=== PATIENT | female | born 1935 | race Caucasian/White ===

== ENCOUNTER → 2016-09-09 | Outpatient (CLI) | payer OTHER ==
[~2016-09-09] MED LIST: ALPR-411 PO; CLR10 PO; FLUT0.15 NAE; HYDR12.56 PO; METO25TA56 PO; MULT-506 PO; OMEP40CA PO; VITA400C28 PO
[2016-09-09 13:40] LABS: ESTIMATED AVERAGE GLUCOSE 117 mg/dl; HA1C FLAG Normal (Normal)
== END | disposition home or self-care (01) ==
LOC: C.LABBFT 08:21
PROVIDERS: ATTEND Internal Medicine
DX: R73.01 Impaired fasting glucose (principal)

== ENCOUNTER → 2017-03-16 | Outpatient (CLI) | payer OTHER ==
[2017-03-16 12:15] LABS: BASO % 0.7 %; BASO ABS # 0.04 K/uL (0-0.2); COMPLETE YES; EOS % 2.7 %; HEMATOCRIT 41.7 % (37-47); IG% 0.2 %; LYMPH % 43.1 %; LYMPH ABS # 2.42 K/uL (1.2-3.4); MEAN CELL VOLUME 96.3 fL (80-100); MEAN CORPUSCULAR HEMOGLOBIN 30.9 pg (25-34); MEAN CORPUSCULAR HGB CONC 32.1 g/dl (32-36); MEAN PLATELET VOLUME 11.6 fL (7.4-10.4); MONO % 7.3 %; PLATELET COUNT 207 K/uL (130-400); RED BLOOD COUNT 4.33 M/uL (4.2-5.4); WHITE BLOOD COUNT 5.61 K/uL (4.8-10.8)
[2017-03-16 12:32] LABS: ESTIMATED AVERAGE GLUCOSE 117 mg/dl; HA1C FLAG Normal (Normal)
[2017-03-16 12:38] LABS: ALT/SGPT 28 U/L (12-78); AST/SGOT 30 U/L (15-37); BLOOD UREA NITROGEN 17 mg/dl (7-18); BUN/CREATININE RATIO 15.4 (10-20); CALCIUM 9.4 mg/dl (8.5-10.1); CARBON DIOXIDE 30 mmol/L (21-32); CHLORIDE 105 mmol/L (98-107); CREATININE 1.12 mg/dl (0.60-1.20); GLUCOSE 106 mg/dl (70-99); POTASSIUM 3.8 mmol/L (3.5-5.1); SODIUM 140 mmol/L (136-145)
[2017-03-16 12:49] LABS: ALB/GLOB RATIO 1.2 (0.9-2); ALKALINE PHOSPHATASE 59 U/L (45-117)
== END | disposition home or self-care (01) ==
LOC: C.LABBFT 08:18
PROVIDERS: ATTEND Internal Medicine
DX: R73.01 Impaired fasting glucose (principal); E78.5 Hyperlipidemia, unspecified

== ENCOUNTER → 2017-03-21 | Outpatient (CLI) | payer OTHER ==
[2017-03-21 17:54] LABS: URINE APPEARANCE CLEAR (CLEAR); URINE COLOR DK YELLOW; URINE NITRITE NEG (NEG); URINE SPECIFIC GRAVITY 1.021 (1.000-1.030); UROBILINOGEN NEG (NEG); ZZUR CULT IF INDIC CLEAN CATCH NO
[2017-03-21 17:59] LABS: MANUAL MICROSCOPIC REQUIRED? NO; REVIEW REQ? NO; URINE BILIRUBIN NEG (NEG)
== END | disposition home or self-care (01) ==
LOC: C.LABSPEC 13:36
PROVIDERS: ATTEND Internal Medicine
DX: N28.9 Disorder of kidney and ureter, unspecified (principal)

== ENCOUNTER 2021-02-11 19:33 | Inpatient (IN) ==
[2021-02-11 20:32] LABS: Basophils # (auto) 0.02 K/uL (0-0.2); Basophils % (auto) 0.3 %; Eosinophils % (auto) 1.7 %; Hemoglobin 11.7 g/dL (12.0-16.0); Immature Granulocytes # (auto) 0.01 K/uL (0.00-0.02); Immature Granulocytes % (auto) 0.2 %; Lymphocytes # (auto) 2.03 K/uL (1.2-3.4); Lymphocytes % (auto) 35.3 %; Mean Corpuscular Hemoglobin 30.4 pg (25-34); Mean Corpuscular Hgb Conc 32.5 g/dL (32-36); Mean Corpuscular Volume 93.5 fL (80-100); Mean Platelet Volume 12.1 fL (7.4-10.4); Monocytes # (auto) 0.38 K/uL (0.11-0.59); Monocytes % (auto) 6.6 %; Neutrophils # (auto) 3.21 K/uL (1.4-6.5); Neutrophils % (auto) 55.9 %; Platelet Count 191 K/uL (130-400); RDW Coefficient of Variation 14.7 % (11.5-14.5); RDW Standard Deviation 49.8 fL (36.4-46.3); Red Blood Count 3.85 M/uL (4.2-5.4); White Blood Count 5.75 K/uL (4.8-10.8)
--- NOTE | 2021-02-11 20:32 | Emergency Department Note ---
Impression & Plan Acute non-ST elevation myocardial infarction (NSTEMI), Acute epigastric pain ED Provider Note Name: KONSTANTIN GRADY Age: 86 Sex: F Arrives Via: Walk-In Informant: Patient, Daughter ED Provider: Sea Walter MD Chief Complaint: epigastric pain Impression: As Per Impression Above Medical Decision Makin yr old female with acute epigastric pain radiating to back over the last week with some left sided chest pain. Severe enough that decided to come to ED for evaluation and pain resolving on arrival. Initial EKG quite concerning for ACS, though as pain free, repeat EKG looking improved, will hold on calling Heart Alert at this time. Vitals OK and she is stable without pain. Abdominal exam benign and breathing comfortably. Good pulses in legs and symptoms do not seem consistent with dissection. Labs with elevated troponin. CT non-Cont of a/p obtained without acute findings, and I do not feel that this is consistent with acute cholecystitis at this point. CXR looking OK. She has no history GI Bleed, denies blood in stool (chronically dark as on Iron per patient), has stable hgb and is not tachy/hypotensive. I do not feel that this EKG change and elevated Troponin are due to GI Bleed, but much more likely are cardiac in nature. After discussing the risks of causing GI bleed with Heparin amongst other bleeding, as well as benefits of Heparin, patient willing to proceed with heparin bolus/infusion. This along with asa and Protonix ordered after review with hospitalist who also agrees. Covid is negative. Patient evaluated and hospitalized. Prior Medical Record and Triage/Nursing Notes reviewed by Me Additional history obtained from chart Differentials:Cardiac ischemia, aortic dissection, pulmonary embolism, pneumothorax, pneumonia, pericarditis, myocarditis, esophageal rupture, GERD, cholecystitis, pancreatitis, musculoskeletal, as well as other pathologies. Vital Signs: reviewed and remarkable for no significant abnormalities Interventions: Saline lock, asa 324mg po, heparin gtt, protonix bolus Labs:Reviewed and remarkable for elevated troponin Imaging:X ray results are stated below per my interpretation: Chest: 1 view: No infiltrate, no effusion, normal cardiac border. [facility] Radiologist interpretation reviewed by me: "CT ABDOMEN & PELVIS Without Contrast: Cholelithiasis. Complex, partly calcified left renal cyst. Large probably mildly septated left renal cyst. Colonic diverticula without diverticulitis. Nonobstructive bowel gas pattern. Visualized segments of the appendix are unremarkable Small hiatal hernia. Cardiomegaly. Radiologist: Kishor Vaughn M.D." EKG #1:Per My Interpretation: Indication Epigastric Pain: NSR 84 bpm, qtc 425. Deep lateral Inferior ST Depression with mild AVR ST elevation. No Ectopy.Compared to EKG 06/04/19 ischemic findings are new. EKG 2: Per My Interpretation: Indication Improvement in Epigastric Pain: NSR 81 bpm, qtc 406. No Ectopy.Resolution of deep lateral ST depressions, continued ST abnormalities elsewher. Compared to EKG earlier on 02/11/21 ischemic changes have somewhat improved. Cardiac/Tele Monitoring: Cardiac Monitoring: An Order was placed for continuous cardiac monitoring. The monitor shows a rate of 70 with a normal sinus rhythm. Consults:Dr Dane FUENTES Hospitalist Plan: Disposition:Hospitalization. Condition: Good History of Present Illness:86 yr old female arrives for evaluation of epigastric pain. Patient with waxing/waning epigastric pain over the last 10 days. Worse with exertion and sometimes with laying down. Similar to previous hiatal hernia issues though this time pain is periodically in the left upper chest. No radiation to shoulders, neck. States epigastric pain sometimes radiates to mid back. Associated with nausea. No improvement with BID Omeprazo le the last few days. Sometimes better with Sprite. Rest seems to make it better. Has history of stomach ulcer and is on iron for anemia. Denies bloody stool and states stool chronically dark from Fe supplement. Denies leg swelling, syncope, vomiting, headache, neck pain, rashes, urinary/bowel symptoms. No recent trauma injuries. Is on ASA 81 mg daily. Denies CAD, has history HTN, DLP, GERD, Hiatal Hernia, SVT, pre DMII, Anxiety, Arthritis. ROS: See above HPI for pertinent positives & negatives. A total of 10 systems reviewed and were otherwise negative. Past Medical History:HTN, DLP, GERD, Hiatal Hernia, SVT, pre DMII, Anxiety, Arthritis. Past Surgical History:left inguinal hernia repair Family History:See Below Social History:See Below Home Medications:See Below Allergies:See Below Vitals:Blood Pressure: 135/81, Pulse 90, RR 19, T 36.9C, O2 97% on RA Physical Exam: GENERAL: Patient is anxious appearing and in minimal distress. EYES: No scleral icterus, unremarkable pupils. ENT: Mucous membranes moist, no nasal congestion. NECK: No masses appreciated, nomeningismus, trachea is midline. RESPIRATORY: No dyspnea. Clear to auscultation and equal bilaterally. No wheeze, no rhonchi. CARDIOVASCULAR: Regular rate and rhythm.No murmurs, rubs, gallops appreciated. GASTROINTESTINAL: Epigastric TTP. Otherwise abdomen soft, non-tender, no peritonitis.Bowel sounds positive.No masses appreciated. BACK: No midline tenderness, no CVA tenderness EXTREMITIES: Normal motion all extremities, no cyanosis, no edema. NEUROLOGIC: Alert and oriented, no acute motor or sensory deficits, no focal weakness, cranial nerves grossly intact. SKIN: No rash, no jaundice, no diaphoresis. PSYCH: Appropriate GCS: 15 ED Course: Times/Reassessments: Stable, no further chest pain, breathing comfortably, soft abdomen and no distress Critical Care: I have personally spent 50 minutes of critical care time in the direct management of this patient. Acute NSTEMI with active EKG changes, started on Heparin and hospitalized. This was a life/limb threatening event. This 50 minutes is in excess of all separately billable procedures. Sea Walter MD Past Med/Surg History Medical History Anxiety Arthritis Gastroesophageal reflux disease Hiatal hernia Hyperlipidemia Hypertension Prediabetes Per records Supraventricular tachycardia Metoprolol bid. follows with Dr. Downey (PCP) Surgical History History of cataract surgery History of D&C Family History Brother Diabetes Heart disease Cardiac disorder Father Liver cancer Sister Cardiac disorder Denies family history of Ovarian cancer Prostate cancer Myocardial infarction Breast cancer Colorectal cancer Social History Smoking Status: Never smoker Second Hand Exposure: Yes (hx as a child); Hx Alcohol Use: No Hx Substance Use: No Preferred Language: Thai Communication Ability: Effective Visual Impairment: No Limitations Hearing Ability: Normal Janitorial Cleaner Required: No Beliefs That Will Affect Care: None marital status: / marital status details: Lives alone Current Living Situation: Alone current occupational status: retired Feels Safe at Home: Yes Childhood Exposure to Second-Hand Smoke: Yes caffeine: Yes during the past year weight has: remained stable Dental Care, Regularly: Yes Physical Activity Frequency: Does not Exercise Seatbelt Use: always Sunscreen Use: No Assistive Devices: Glasses Allergies Allergies Allergy/AdvReac Type Severity Reaction Status Date / Time Iodinated Contrast Media Allergy Intermediate HIVES Verified 02/11/21 21:34 atorvastatin [From Lipitor] AdvReac Intermediate myalgia Verified 02/11/21 21:34 levofloxacin [From Levaquin] AdvReac Intermediate Anxiety Verified 02/11/21 21:34 pravastatin AdvReac Intermediate myalgia Verified 02/11/21 21:34 prednisone AdvReac hyperactivi Verified 02/11/21 21:34 ty Home Meds Home Medications Medication Instructions Recorded Confirmed multivitamin (Daily Multi-Vitamin) 1 tab PO QAM 05/13/19 02/11/21 loratadine 10 mg tablet (Claritin) 10 mg PO DAILY 05/25/19 02/11/21 aspirin 81 mg chewable tablet 81 mg PO QAM 06/04/19 02/11/21 ferrous sulfate 325 mg (65 mg 325 mg PO BID 07/23/20 02/11/21 iron) tablet fluticasone propionate 50 2 spray INTNAS DAILY 02/11/21 02/11/21 mcg/actuation nasal spray,suspension omeprazole 20 mg capsule,delayed 20 mg PO BID 02/11/21 02/11/21 release vit C 250 mg-vit E 90 mg-zinc 40 1 tab PO BID 02/11/21 02/11/21 mg-copper 1 [id number] capsule (PreserVision AREDS-2) vitamin B complex 1 tab PO DAILY 02/11/21 02/11/21 Previous Rx's Medication Instructions Recorded metoprolol tartrate 25 mg tablet 25 mg PO BID #60 tab 08/07/20 alprazolam 0.25 mg tablet 0.25 mg PO DAILY PRN #30 tab 01/13/21 Results & Data (ED) Vital Signs Vital Signs - 24 hr 02/11/21 19:35 02/11/21 20:44 02/11/21 20:45 Temperature 36.9 C Temperature Source Temporal Artery Scan Pulse Rate 90 78 77 Pulse Rate [Apical] 80 Pulse Rate from SpO2 Sensor 78 77 Respiratory Rate 19 24 16 Respiratory Effort / Characteristics Non-Labored Respiratory Depth Normal Normal Blood Pressure 135/81 Blood Pressure [Left Arm] 169/95 H Blood Pressure Mean 99 Blood Pressure Mean [Left Arm] 119 Pulse Oximetry 97 95 94 Oxygen Delivery Method Room Air Sepsis Recent Fever Within 48 Hours No Sepsis New/Unexplained Change in Mental Status N/A Sepsis Action Taken by Nursing No Action Required 02/11/21 21:00 02/11/21 21:15 02/11/21 21:30 Temperature Temperature Source Pulse Rate 84 79 82 Pulse Rate [Apical] Pulse Rate from SpO2 Sensor 84 80 83 Respiratory Rate 18 16 15 Respiratory Effort / Characteristics Respiratory Depth Blood Pressure Blood Pressure [Left Arm] Blood Pressure Mean Blood Pressure Mean [Left Arm] Pulse Oximetry 96 97 96 Oxygen Delivery Method Sepsis Recent Fever Within 48 Hours Sepsis New/Unexplained Change in Mental Status Sepsis Action Taken by Nursing 02/11/21 21:45 02/11/21 22:00 02/12/21 00:00 Temperature Temperature Source Pulse Rate 75 75 Pulse Rate [Apical] 68 Pulse Rate from SpO2 Sensor 75 75 Respiratory Rate 15 17 18 Respiratory Effort / Characteristics Respiratory Depth Blood Pressure 135/70 Blood Pressure [Left Arm] Blood Pressure Mean 91 Blood Pressure Mean [Left Arm] Pulse Oximetry 95 95 95 Oxygen Delivery Method Sepsis Recent Fever Within 48 Hours Sepsis New/Unexplained Change in Mental Status Sepsis Action Taken by Nursing Laboratory Data Result diagrams: 02/11/21 19:40 02/11/21 19:40 Lab Results 02/11/21 02/11/21 02/11/21 Range/Units 19:40 19:40 19:40 WBC 5.75 (4.8-10.8) K/uL RBC 3.85 L (4.2-5.4) M/uL Hgb 11.7 L (12.0-16.0) g/dL Hct 36.0 L (37-47) % MCV 93.5 (80-100) fL MCH 30.4 (25-34) pg MCHC 32.5 (32-36) g/dL RDW Std Deviation 49.8 H (36.4-46.3) fL RDW Coeff of Chris 14.7 H (11.5-14.5) % Plt Count 191 (130-400) K/uL MPV 12.1 H (7.4-10.4) fL Immature Gran % (Auto) 0.2 % Neut % (Auto) 55.9 % Lymph % (Auto) 35.3 % [place] % (Auto) 6.6 % Eos % (Auto) 1.7 % Baso % (Auto) 0.3 % Neut # (Auto) 3.21 (1.4-6.5) K/uL Lymph # (Auto) 2.03 (1.2-3.4) K/uL [place] # (Auto) 0.38 (0.11-0.59) K/uL Eos # (Auto) 0.10 (0-0.5) K/uL Baso # (Auto) 0.02 (0-0.2) K/uL Immature Gran # (Auto) 0.01 (0.00-0.02) K/uL PT 9.8 (9.0-12.0) Seconds INR 1.0 (0.9-1.1) APTT 24.8 (21.0-31.0) Seconds PTT Ratio 0.9 Sodium 136 (136-145) mmol/L Potassium 4.2 (3.5-5.1) mmol/L Chloride 105 (98-107) mmol/L Carbon Dioxide 25 (21-32) mmol/L Anion Gap 6.0 (3-11) BUN 14 (7-18) mg/dl Creatinine 1.08 (0.6-1.2) mg/dl Est Cr Clr Drug Dosing 27.9 ml/min Est GFR ( Amer) 53.5 ml/min Est GFR (Non-Af Amer) 46.1 ml/min BUN/Creatinine Ratio 13.1 (10-20) Glucose 120 H (70-99) mg/dl Calcium 9.5 (8.5-10.1) mg/dl Total Bilirubin 0.5 (0.2-1) mg/dl AST 32 (15-37) U/L ALT 26 (12-78) U/L Alkaline Phosphatase 63 (45-117) U/L Troponin I 0.891 H* (0-0.045) ng/ml Total Protein 7.9 (6.4-8.2) gm/dl Albumin 3.8 (3.4-5.0) gm/dl Globulin 4.1 H (2.5-4.0) gm/dl Albumin/Globulin Ratio 0.9 (0.9-2) Lipase 280 (73-393) U/L Specimen Hemolysis COVID-19 Eval Order SARS-CoV-2 (PCR) (Negative) 02/11/21 02/11/21 Range/Units Unknown Unknown WBC (4.8-10.8) K/uL RBC (4.2-5.4) M/uL Hgb (12.0-16.0) g/dL Hct (37-47) % MCV (80-100) fL MCH (25-34) pg MCHC (32-36) g/dL RDW Std Deviation (36.4-46.3) fL RDW Coeff of Chris (11.5-14.5) % Plt Count (130-400) K/uL MPV (7.4-10.4) fL Immature Gran % (Auto) % Neut % (Auto) % Lymph % (Auto) % [place] % (Auto) % Eos % (Auto) % Baso % (Auto) % Neut # (Auto) (1.4-6.5) K/uL Lymph # (Auto) (1.2-3.4) K/uL [place] # (Auto) (0.11-0.59) K/uL Eos # (Auto) (0-0.5) K/uL Baso # (Auto) (0-0.2) K/uL Immature Gran # (Auto) (0.00-0.02) K/uL PT (9.0-12.0) Seconds INR (0.9-1.1) APTT (21.0-31.0) Seconds PTT Ratio Sodium (136-145) mmol/L Potassium (3.5-5.1) mmol/L Chloride (98-107) mmol/L Carbon Dioxide (21-32) mmol/L Anion Gap (3-11) BUN (7-18) mg/dl Creatinine (0.6-1.2) mg/dl Est Cr Clr Drug Dosing ml/min Est GFR ( Amer) ml/min Est GFR (Non-Af Amer) ml/min BUN/Creatinine Ratio (10-20) Glucose (70-99) mg/dl Calcium (8.5-10.1) mg/dl Total Bilirubin (0.2-1) mg/dl AST (15-37) U/L ALT (12-78) U/L Alkaline Phosphatase (45-117) U/L Troponin I (0-0.045) ng/ml Total Protein (6.4-8.2) gm/dl Albumin (3.4-5.0) gm/dl Globulin (2.5-4.0) gm/dl Albumin/Globulin Ratio (0.9-2) Lipase (73-393) U/L Specimen Hemolysis COVID-19 Eval Order Covid19 at [facility] SARS-CoV-2 (PCR) NEGATIVE (Negative) Administered Medications Heparin Sodium/Dextrose (Heparin Sodium/Dextrose) 25,000 units in 500 mls @ 12 mls/hr IV .Q24H FRANDY; Protocol Stop: 03/13/21 23:14 Last Admin: 02/11/21 23:32 Dose: 600 units/hr, 12 mls/hr Documented by: [id number] Cosigned by: [id number] Nitroglycerin (Nitroglycerin 2% Ointment 30gm Tube) 1 inch EXT Q6 FRANDY Stop: 03/14/21 00:00 Last Admin: 02/12/21 01:34 Dose: 1 inch Documented by: [id number] Discontinued Medications Aspirin (Aspirin 81 Mg Chew) 324 mg PO NOW STA Stop: 02/11/21 22:54 Last Admin: 02/11/21 23:51 Dose: 324 mg Documented by: [id number] Heparin Sodium/Dextrose (Heparin Iv Adult Wt-Based Low-Dose With Bolus Protocol) 1 ea N/A NOW STA; Protocol Stop: 02/11/21 22:54 Last Admin: 02/11/21 23:28 Dose: 1 ea Documented by: [id number] Pantoprazole Sodium 80 mg/ (Dextrose) 100 mls @ 400 mls/hr IV ONE STA Stop: 02/11/21 23:08 Last Infusion: 02/12/21 00:14 Dose: 0 mls/hr Documented by: [id number] Admin: 02/11/21 23:41 Dose: 400 mls/hr Documented by: [id number] Imaging Data Radiologist's Impression: Chest X-Ray 02/11/21 19:40 XR chest 1V portable HISTORY: Atypical Chest Pain COMPARISON: Chest 06/04/2019. FINDINGS: No pneumothorax. No pleural effusions. The cardiac silhouette remains mildly enlarged. Slightly rotated study. Mild interstitial thickening which is likely chronic. No new focal lung consolidations to suggest pneumonia. No evidence for pulmonary edema. Suspect mild emphysema. IMPRESSION: No significant change compared to the prior study. No acute process. ACT 112: Negative or not required by law. Electronically signed by: Nikita Barrera M.D. 02/11/2021 8:33 PM Discharge Plan Visit Data Chief Complaint: GI Assessment Stated Complaint: BURNING IN THROAT, PAIN IN CHEST/RIB AREA ED Provider: Sea Walter Discharge Problem: Acute non-ST elevation myocardial infarction (NSTEMI), Acute epigastric pain Forms Stand Alone Forms: [facility] [employer] Prescriptions Prescriptions: No Action multivitamin [Daily Multi-Vitamin] tablet 1 tab PO QAM RF: 0 ferrous sulfate 325 mg (65 mg iron) tablet 325 mg PO BID RF: 0 metoprolol tartrate 25 mg tablet 25 mg PO BID Qty: 60 RF: 5 Hold Instructions: weak feelings in the morning alprazolam 0.25 mg tablet 0.25 mg PO DAILY PRN (Reason: anxiety) Qty: 30 RF: 0 loratadine [Claritin] 10 mg tablet 10 mg PO DAILY RF: 0 aspirin 81 mg Tablet,Chewable 81 mg PO QAM RF: 0 omeprazole 20 mg capsule,delayed release(DR/EC) 20 mg PO BID RF: 0 fluticasone propionate 50 mcg/actuation spray,suspension 2 spray INTNAS DAILY RF: 0 vitamin B complex Tablet 1 tab PO DAILY RF: 0 PreserVision AREDS-2 250-90-40-1 mg Capsule 1 tab PO BID RF: 0 Referrals Referrals: Carlos Downey MD [Primary Care Provider] -
--- NOTE | 2021-02-11 20:34 | XRay Report ---
XR chest 1V portable HISTORY: Atypical Chest Pain COMPARISON: Chest 06/04/2019. FINDINGS: No pneumothorax. No pleural effusions. The cardiac silhouette remains mildly enlarged. Slig htly rotated study. Mild interstitial thickening which is likely chronic. No new focal lung consolida tions to suggest pneumonia. No evidence for pulmonary edema. Suspect mild emphysema. IMPRESSION: No significant change compared to the prior study. No acute process. ACT 112: Negative or not required by law. Electronically signed by: Nikita Barrera M.D. 02/11/2021 8:33 PM
[2021-02-11 20:50] LABS: Albumin Globulin Ratio 0.9 (0.9-2); Albumin Level 3.8 gm/dl (3.4-5.0); BUN Creatinine Ratio 13.1 (10-20); Bilirubin,Total 0.5 mg/dl (0.2-1); Calcium 9.5 mg/dl (8.5-10.1); Creatinine Clr Calc Pharmacy 27.9 ml/min; Est GFR (African American) 53.5 ml/min; Est GFR (Non-African American) 46.1 ml/min; Globulin 4.1 gm/dl (2.5-4.0); Potassium 4.2 mmol/L (3.5-5.1); Total Protein 7.9 gm/dl (6.4-8.2); Troponin I 0.891 ng/ml (0-0.045)
[2021-02-11 22:00] LABS: Partial Thromboplastin Ratio 0.9; Partial Thromboplastin Time 24.8 Seconds (21.0-31.0); Prothrombin Time 9.8 Seconds (9.0-12.0)
[2021-02-11] MEDS ORDERED: Heparin IV Adult Wt-Based Low-Dose WITH Bolus Protocol STA (22:53)
[2021-02-11] MEDS ORDERED: ASPIRIN 81 MG CHEW PO STA (22:53)
[2021-02-11] MEDS ORDERED: PANTOprazole 80 MG in DEXTROSE 5% 100 ML IV STA (22:54)
[2021-02-11] MEDS ORDERED: HEPARIN SOD (PORCINE) 1000 UNIT/ML IV ONE (23:08)
[2021-02-11] MEDS: HEPARIN SODIUM/DEXTROSE 25,000 UNITS/500 ML BAG IV SCH (23:32)
[2021-02-11] MEDS ORDERED: ONDANSETRON INJ 2 MG/ML 2 ML VIAL IV PRN (23:55)
[2021-02-11] MEDS ORDERED: ACETAMINOPHEN 325 MG TAB PO PRN (23:55)
--- NOTE | 2021-02-11 23:57 | History & Physical Report ---
Date of Service February 11, 2021 Assessment & Plan (1) NSTEMI (non-ST elevated myocardial infarction): (2) Hyperlipidemia: (3) Hypertension: (4) Anxiety: (5) Gastroesophageal reflux disease: (6) Supraventricular tachycardia: (7) Prediabetes: Plan: 86-year-old female past medical history significant for SVT on metoprolol, hypertension, hyperlipidemia, GERD, hiatal hernia, anxiety, prediabetes admitted for NSTEMI. NSTEMI: Presented with epigastric to left chest pain/pressure with associated shortness of breath. Noted to have T wave inversions in inferior lateral leads with elevated initial troponin to 0.891. Patient will be started on heparin gtt, and started on Nitropaste. Telemetry for continuous cardiac monitoring. Echocardiogram in the morning, with Cardiology consult for consideration of catheterization. Continue daily aspirin Continue metoprolol tartrate 25 mg twice daily (was on metoprolol succinate in the past however had breakthrough SVT). Will start low-dose lisinopril 2.5 mg daily. Chronic medical history: Hypertension: Continue metoprolol; will start low-dose lisinopril with daily BMP while admitted. Hyperlipidemia: Has had intolerance (severe myalgias) to multiple fat-soluble and water-soluble statins. Given NSTEMI care should be given to medications such as Repatha. Defer to cardiology. Lipid panel ordered. Prediabetes: Last A1c several months ago in prediabetic range. Repeat A1c ordered. No intervention at this time given last A1c less than 7%. GERD, history of stomach ulcer: Given history of stomach ulcer and GERD will increase PPI to twice daily while admitted. Anxiety: Continue as needed alprazolam. CODE STATUS: DNR/DNI FEN: N.p.o. DVT prophylaxis: Heparin GTT Dispo: Telemetry History of Present Illness Chief Complaint: Epigastric/left chest pain Primary Care Provider: Carlos Downey MD 86-year-old female past medical history significant for SVT on metoprolol, hypertension, hyperlipidemia, GERD, hiatal hernia, anxiety, prediabetes presented to the ER for intermittent epigastric to left chest pain for the last 10 days that worsens with exertion. She does not report associated nausea or vomiting, diaphoresis with these events, but does endorse some breathlessness during them. In general she denies recent fevers, chills, urinary symptoms. She reports that in this 10-day time she would have this cramping sensation and shortness of breath at the end of her 100 foot walk from her front door to her mailbox. It would take her several minutes of resting before the symptoms would improve. At first she thought that the symptoms were a worsening of her GERD symptoms and so she increased her omeprazole to twice daily for the last 3 days. When this did not help she came to the ER for evaluation. In the ER patient was noted to be hypertensive to 160s/90s, otherwise hemodynamically stable. CBC revealed anemia with hemoglobin 11.7 with normo cytic MCV, normal CMP, troponin 0.891. EKG notable for T wave depressions in inferior and lateral leads as compared to EKG in May 2019. COVID-19 testing negative. Chest x-ray without acute process. CTAP with cholelithiasis and small hiatal hernia. Allergies Allergy/AdvReac Type Severity Reaction Status Date / Time Iodinated Contrast Media Allergy Intermediate HIVES Verified 02/11/21 21:34 atorvastatin [From Lipitor] AdvReac Intermediate myalgia Verified 02/11/21 21:34 levofloxacin [From Levaquin] AdvReac Intermediate Anxiety Verified 02/11/21 21:34 pravastatin AdvReac Intermediate myalgia Verified 02/11/21 21:34 prednisone AdvReac hyperactivi Verified 02/11/21 21:34 ty Home Medications Medication Instructions Recorded Confirmed Type multivitamin (Daily Multi-Vitamin) 1 tab PO QAM 05/13/19 02/11/21 History loratadine 10 mg tablet (Claritin) 10 mg PO DAILY 05/25/19 02/11/21 History aspirin 81 mg chewable tablet 81 mg PO QAM 06/04/19 02/11/21 History ferrous sulfate 325 mg (65 mg 325 mg PO BID 07/23/20 02/11/21 History iron) tablet metoprolol tartrate 25 mg tablet 25 mg PO BID #60 tab 08/07/20 02/11/21 Rx alprazolam 0.25 mg tablet 0.25 mg PO DAILY PRN #30 tab 01/13/21 02/11/21 Rx fluticasone propionate 50 2 spray INTNAS DAILY 02/11/21 02/11/21 History mcg/actuation nasal spray,suspension omeprazole 20 mg capsule,delayed 20 mg PO BID 02/11/21 02/11/21 History release vit C 250 mg-vit E 90 mg-zinc 40 1 tab PO BID 02/11/21 02/11/21 History mg-copper 1 [id number] capsule (PreserVision AREDS-2) vitamin B complex 1 tab PO DAILY 02/11/21 02/11/21 History Past Med/Surg History Medical History Anxiety Arthritis Gastroesophageal reflux disease Hiatal hernia Hyperlipidemia Hypertension Prediabetes Per records Supraventricular tachycardia Metoprolol bid. follows with Dr. Downey (PCP) Surgical History History of cataract surgery History of D&C Family History Brother Diabetes Heart disease Cardiac disorder Father Liver cancer Sister Cardiac disorder Denies family history of Ovarian cancer Prostate cancer Myocardial infarction Breast cancer Colorectal cancer Social History Smoking Status: Never smoker Second Hand Exposure: Yes (hx as a child); Hx Alcohol Use: No Hx Substance Use: No Preferred Language: Slovenian Communication Ability: Effective Visual Impairment: No Limitations Hearing Ability: Normal Rock Drill Operator Required: No Beliefs That Will Affect Care: None marital status: / marital status details: Lives alone Current Living Situation: Alone current occupational status: retired Other Information That Helps Us Care for You: No Feels Safe at Home: Yes Safety Concerns: Feels Safe At This Time Childhood Exposure to Second-Hand Smoke: Yes caffeine: Yes during the past year weight has: remained stable Dental Care, Regularly: Yes Physical Activity Frequency: Does not Exercise Seatbelt Use: always Sunscreen Use: No Assistive Devices: Denture - Upper, Denture - Lower and Glasses Review of Systems Review of Systems: All systems reviewed & are unremarkable except as noted in HPI & below Constitutional: + malaise; no fever and no chills Respiratory: no cough and no dyspnea Cardiovascular: + chest pain; no palpitations and no edema Gastrointestinal: no abdominal pain, no constipation and no diarrhea/loose stools Genitourinary: no dysuria and no hematuria Physical Exam Constitutional: WD/WN, vitals as above Eyes: PERRL, conjunctivae normal, anicteric sclerae ENMT: external ear and nose normal, oropharynx normal Neck: normal visual inspection Respiratory: normal respiratory effort, lungs clear to auscultation Cardiovascular: RRR, no murmur, no edema Gastrointestinal (Abdomen): Inspection/Auscultation: abdomen normal to inspection and normal bowel sounds Percussion/Palpation: + abdomen tender and abdomen soft (mild epigastric); no guarding Musculoskeletal: no cyanosis or clubbing, extremities motor strength 5/5 Skin: no rashes, warm and dry Neurologic: AAOx3, normal speech. Bilateral UE, LE, and face without sensory or motor deficits. Psychiatric: A+Ox3, euthymic affect Results & Data Results & Data ([facility]) Vital Signs (Past 12 Hours) Vital Signs Temp Pulse Pulse Resp BP BP Pulse Ox 02/11/21 22:00 68 17 95 02/11/21 20:44 80 22 169/95 H 95 02/11/21 19:35 36.9 C 90 19 135/81 97 Laboratory Results Laboratory Results WBC 5.75 K/uL (4.8-10.8) 02/11/21 19:40 RBC 3.85 M/uL (4.2-5.4) L 02/11/21 19:40 Hgb 11.7 g/dL (12.0-16.0) L 02/11/21 19:40 Hct 36.0 % (37-47) L 02/11/21 19:40 MCV 93.5 fL (80-100) 02/11/21 19:40 MCH 30.4 pg (25-34) 02/11/21 19:40 MCHC 32.5 g/dL (32-36) 02/11/21 19:40 RDW Std Deviation 49.8 fL (36.4-46.3) H 02/11/21 19:40 RDW Coeff of Chris 14.7 % (11.5-14.5) H 02/11/21 19:40 Plt Count 191 K/uL (130-400) 02/11/21 19:40 MPV 12.1 fL (7.4-10.4) H 02/11/21 19:40 Immature Gran % (Auto) 0.2 % 02/11/21 19:40 Neut % (Auto) 55.9 % 02/11/21 19:40 Lymph % (Auto) 35.3 % 02/11/21 19:40 Toombs % (Auto) 6.6 % 02/11/21 19:40 Eos % (Auto) 1.7 % 02/11/21 19:40 Baso % (Auto) 0.3 % 02/11/21 19:40 Neut # (Auto) 3.21 K/uL (1.4-6.5) 02/11/21 19:40 Lymph # (Auto) 2.03 K/uL (1.2-3.4) 02/11/21 19:40 Toombs # (Auto) 0.38 K/uL (0.11-0.59) 02/11/21 19:40 Eos # (Auto) 0.10 K/uL (0-0.5) 02/11/21 19:40 Baso # (Auto) 0.02 K/uL (0-0.2) 02/11/21 19:40 Immature Gran # (Auto) 0.01 K/uL (0.00-0.02) 02/11/21 19:40 PT 9.8 Seconds (9.0-12.0) 02/11/21 19:40 INR 1.0 (0.9-1.1) 02/11/21 19:40 APTT 24.8 Seconds (21.0-31.0) 02/11/21 19:40 PTT Ratio 0.9 02/11/21 19:40 Sodium 136 mmol/L (136-145) 02/11/21 19:40 Potassium 4.2 mmol/L (3.5-5.1) 02/11/21 19:40 Chloride 105 mmol/L (98-107) 02/11/21 19:40 Carbon Dioxide 25 mmol/L (21-32) 02/11/21 19:40 Anion Gap 6.0 (3-11) 02/11/21 19:40 BUN 14 mg/dl (7-18) 02/11/21 19:40 Creatinine 1.08 mg/dl (0.6-1.2) 02/11/21 19:40 Est Cr Clr Drug Dosing 27.9 ml/min 02/11/21 19:40 Est GFR ( Amer) 53.5 ml/min 02/11/21 19:40 Est GFR (Non-Af Amer) 46.1 ml/min 02/11/21 19:40 BUN/Creatinine Ratio 13.1 (10-20) 02/11/21 19:40 Glucose 120 mg/dl (70-99) H 02/11/21 19:40 Calcium 9.5 mg/dl (8.5-10.1) 02/11/21 19:40 Total Bilirubin 0.5 mg/dl (0.2-1) 02/11/21 19:40 AST 32 U/L (15-37) 02/11/21 19:40 ALT 26 U/L (12-78) 02/11/21 19:40 Alkaline Phosphatase 63 U/L (45-117) 02/11/21 19:40 Troponin I 0.891 ng/ml (0-0.045) H* 02/11/21 19:40 Total Protein 7.9 gm/dl (6.4-8.2) 02/11/21 19:40 Albumin 3.8 gm/dl (3.4-5.0) 02/11/21 19:40 Globulin 4.1 gm/dl (2.5-4.0) H 02/11/21 19:40 Albumin/Globulin Ratio 0.9 (0.9-2) 02/11/21 19:40 Lipase 280 U/L (73-393) 02/11/21 19:40 Specimen Hemolysis 02/11/21 19:40 COVID-19 Eval Order Covid19 at [facility] 02/11/21 Unknown SARS-CoV-2 (PCR) NEGATIVE (Negative) 02/11/21 Unknown Impressions Chest X-Ray 02/11/21 19:40 XR chest 1V portable HISTORY: Atypical Chest Pain COMPARISON: Chest 06/04/2019. FINDINGS: No pneumothorax. No pleural effusions. The cardiac silhouette remains mildly enlarged. Slightly rotated study. Mild interstitial thickening which is likely chronic. No new focal lung consolidations to suggest pneumonia. No evidence for pulmonary edema. Suspect mild emphysema. IMPRESSION: No significant change compared to the prior study. No acute process. ACT 112: Negative or not required by law. Electronically signed by: Nikita Barrera M.D. 02/11/2021 8:33 PM Code Status & VTE Plan VTE Prophylaxis Plan VTE Prophylaxis will be ordered: Yes Supervising Physician Co-Signing Physician Notes Patient seen and examined, chart reviewed, case discussed with Dr. Louis and I agree with her assessment and plan as documented above. In brief, patient is an 86yo female with history of HTN, HLP and GERD, Pre-DM presenting with worsening left sided chest discomfort, SOB. Patient reports ongoing anginal symptoms over the last several weeks - relieved with rest. Has been increasing in severity and duration. She experienced left sided chest pain this evening. Thought pain was from her breast. Troponin elevated at 0.891. Initial EKG while having chest pain with ST depressions in inferior/lateral leads. EKG improved with resolution of chest pain - still with lateral ST changes. Unremarkable exam. Afebrile, HD stable Skin - warm, dry, intact, no rashes/lesions HEENT - NC/AT, PERRL, MMM, Neck supple Heart - +S1/S2, regular, no m/r/g, No reproducible chest pain Lungs - CTA Abdomen - soft, NT/ND Ext - Warm, well perfused, no clubbing/cyanosis or edema Labs and images reviewed Assessment/Plan 86yo female with history of HTN, HLP Pre-DM presenting with NSTEMI - troponin of 0.891 with associated EKG changes. Patient describes appx 10 days of worsening anginal symptoms. Presently chest pain free. HD stable -Heparin gtt -Trend troponin -Check 2D echo -Continue ASA. Patient is statin-intolerant (Last lipid panel 07/21/20 with Porn=608, LDL of 130, HDL of 71 and TG of 115) -BB, CECI-inhibitor -Continue Protonix 40mg BID while on heparin - patient with history of GERD, anemia on iron supplements -Cardiology consultation in AM - possible cardiac catheterization which was briefly discussed with patient -Remainder of plan as above Resident Activity Tracking Resident Involvement: Resident Care Provided Care Provided: Adult Hospital Medicine (1) Hypertension Hypertension type: essential hypertension Qualified Code(s): I10 - Essential (primary) hypertension
[2021-02-12] MEDS: NITROGLYCERIN 2% OINTMENT 30GM TUBE EXT SCH ×4 (01:34→18:35)
--- NOTE | 2021-02-12 02:53 | Billing Data ---
Date of Service February 11, 2021 Coding Level of Care Code 64239 Initial Inpt Care Lvl 3
[2021-02-12] MEDS ORDERED: ALPRAZolam 0.25 MG TABLET PO PRN (03:21)
[2021-02-12] MEDS ORDERED: POLYETHYLENE (MIRALAX) 17 GM PACK PO PRN (03:21)
[2021-02-12 03:42] LABS: Basophils # (auto) 0.02 K/uL (0-0.2); Basophils % (auto) 0.4 %; Eosinophils # (auto) 0.06 K/uL (0-0.5); Eosinophils % (auto) 1.1 %; Hematocrit (blood only) 32.4 % (37-47); Hemoglobin 10.4 g/dL (12.0-16.0); Immature Granulocytes # (auto) 0.01 K/uL (0.00-0.02); Immature Granulocytes % (auto) 0.2 %; Lymphocytes # (auto) 1.52 K/uL (1.2-3.4); Lymphocytes % (auto) 28.4 %; Mean Corpuscular Hemoglobin 29.9 pg (25-34); Mean Corpuscular Hgb Conc 32.1 g/dL (32-36); Mean Corpuscular Volume 93.1 fL (80-100); Mean Platelet Volume 10.5 fL (7.4-10.4); Monocytes # (auto) 0.39 K/uL (0.11-0.59); Monocytes % (auto) 7.3 %; Neutrophils # (auto) 3.36 K/uL (1.4-6.5); Neutrophils % (auto) 62.6 %; Platelet Count 187 K/uL (130-400); RDW Coefficient of Variation 14.5 % (11.5-14.5); RDW Standard Deviation 49.3 fL (36.4-46.3); Red Blood Count 3.48 M/uL (4.2-5.4); White Blood Count 5.36 K/uL (4.8-10.8)
[2021-02-12 03:58] LABS: BUN Creatinine Ratio 14.1 (10-20); Creatinine Clr Calc Pharmacy 31.7 ml/min; Est GFR (African American) 62.4 ml/min; Est GFR (Non-African American) 53.9 ml/min; Potassium 3.7 mmol/L (3.5-5.1)
[2021-02-12 04:12] LABS: Troponin I 8.95 ng/ml (0-0.045)
[2021-02-12 05:52] LABS: Partial Thromboplastin Ratio 2.2
[2021-02-12 06:23] LABS: Partial Thromboplastin Time 58.5 Seconds (21.0-31.0)
[2021-02-12 07:29] LABS: Estimated Average Glucose 117 mg/dl; Hemoglobin A1C 5.7 % (4.5-5.6)
--- NOTE | 2021-02-12 08:01 | CT Scan Report ---
CT abd pelvis wo con CLINICAL INDICATION: MN ^B3B CTR ^epigastric pain. TECHNIQUE: Helical axial images of the abdomen and pelvis were obtained. Automated dose lowering tech niques and/or adjustment according to patient size were utilized for this exam. This exam was perfor med without intravenous contrast. COMPARISON: Comparison is made to CT abdomen and pelvis 06/01/2019 FINDINGS: Lower chest: Bibasilar atelectasis is seen. Cardiomegaly is partially visualized. Liver: Unremarkable. No focal lesions are seen. Gallbladder and biliary tree: Cholelithiasis is seen without evidence of cholecystitis. No intra- or extrahepatic biliary ductal dilation. Pancreas: Unremarkable, no focal lesions. Spleen: Unremarkable. Adrenals: Unremarkable. Kidneys and ureters: Complex, partially calcified cystic lesion in the left kidney, similar in appear ance to prior exam. Bladder: Unremarkable. Reproductive organs: A calcified fibroid is incidentally noted. Bowel: A hiatal hernia is seen. The appendix is unremarkable. Diverticulosis is seen without evidence of diverticulitis. Lymph nodes Retroperitoneal: Unremarkable. Mesenteric: Unremarkable. Pelvic: Unremarkable. Peritoneum: Normal Vessels: Atherosclerotic calcifications are seen. Abdominal wall: Unremarkable. Bones: Degenerative changes in the visualized spine. There is grade 1 anterolisthesis of L2 on L3 and L3-L4. IMPRESSION: 1. No acute abnormality. 2. Cholelithiasis is again seen without evidence of cholecystitis. 3. Complex, partially calcified left renal cyst, unchanged from prior exam. 4. Additional findings as above. ACT 112: Negative or not required by law. Electronically signed by: Norman Mauro M.D. 02/12/2021 8:00 AM
[2021-02-12] MEDS: METOPROLOL TARTRATE 25 MG TAB PO SCH ×2 (09:02→22:06)
[2021-02-12] MEDS: PANTOprazole 40 MG TAB PO SCH ×2 (09:02→22:06)
[2021-02-12] MEDS: LORATADINE 10 MG TAB PO SCH (09:02)
[2021-02-12] MEDS: lisinopril 2.5 MG TAB PO SCH (09:02)
[2021-02-12] MEDS: ASPIRIN 81 MG ECTAB PO SCH (09:02)
[2021-02-12] MEDS: MULTIVITAMIN TAB PO SCH (09:02)
[2021-02-12] MEDS: FLUTICASONE PROPIONATE NA SPR 16 GM BTL SCH (09:03)
[2021-02-12] MEDS: FERROUS SULFATE 325 MG TAB PO SCH ×2 (09:03→20:39)
--- NOTE | 2021-02-12 12:37 | Hospitalist Progress Note ---
Date of Service February 12, 2021 Assessment & Plan (1) NSTEMI (non-ST elevated myocardial infarction): Plan: April Montes is an 86yo female with PMHx significant for SVT (on metoprolol), hypertension, hyperlipidemia, GERD, hiatal hernia, anxiety, prediabetes (A1c 5.7 on 02/12/2021) admitted for NSTEMI; found to have multi- vessel disease on cardiac catheterization and requires transfer for CABG. NSTEMI Typical ACS symptoms. EKG with inferolateral ST depressions and T-wave inversions, Troponin peaked at 15.4. Multi-vessel disease per cardiac catheterization that requires CABG. - TTE with EF 55-60%, mild apical posterior hypokinesis, and moderate MR - received high-dose Aspirin and nitro x1 in the ED, no chest pain currently - Cardiology on board - appreciate recs - patient is in process of making decision about transfer for CABG; will await her consent for transfer - continue Heparin drip, daily Aspirin 81mg, Lopressor 25mg PO BID, Lisinopril 2.5mg PO QAM - statins contraindicated in this patient; had severe myalgias with multiple fat-soluble/water-soluble statins - EKG and nitro PRN for chest pain Chronic medical history Hypertension: Continue metoprolol; continue low-dose lisinopril Hyperlipidemia: Has had intolerance (severe myalgias) to multiple fat-soluble and water-soluble statins. Given NSTEMI care should be given to medications such as Repatha. Defer to cardiology. Prediabetes: A1c 5.7 during this hospitalization. No intervention at this time. GERD, history of stomach ulcer: Given history of stomach ulcer and GERD will continue PPI twice daily while admitted. Anxiety: Continue as needed alprazolam. Code status: DNR/DNI FEN: Heart-healthy diet DVT prophylaxis: Heparin gtt Dispo: PCU with tele (2) Hyperlipidemia: (3) Hypertension: (4) Anxiety: (5) Gastroesophageal reflux disease: (6) Supraventricular tachycardia: (7) Prediabetes: Admission and Anticipated Discharge Date Admission Date: February 11, 2021 Supervising Physician Co-Signing Physician Notes Attending attestation Pt seen and examined in concert with Dr. Stark. In agreement with the documented findings as noted in the resident documentation with any exceptions or additions as noted here. Resolution of chest pain symptoms with ongoing fatigue and reports of exercise intolerance prior to admission c/w cardiac pathology. On examination, S1/S2 nl RRR no MCG. CTAB. Abd NT/ND BS+ve NSTEMI - cardiology consult - s/p cath - rec'd transfer for CABG - continue ASA, lopressor, lisinopril. Previous intolerance of statin therapy. Else see resident documentation as noted. Subjective No acute events overnight. Chest pain completely resolved after nitropaste given. This morning the patient reports feeling well overall. Denies fever/chills, chest pain, palpitations, SOB, cough, N/V, abdominal pain, rash. Review of Systems Review of Systems: All systems reviewed & are unremarkable except as noted in HPI & below Physical Exam Physical Exam: General: A&Ox3. NAD. Cooperative. HEENT: Atraumatic, normocephalic. Pulm: CTAB A&P. -wheezes, -rales, -rhonchi. Symmetrical chest rise. No increase work of breathing. No respiratory distress. Cardiac: RRR, -mrg. Radial pulses intact and symmetrical. Abdominal: soft, non-tender, non-distended, BS x 4 Skin: warm, dry, no rash Results & Data Results & Data ([facility]) Vital Signs (Past 12 Hours) Vital Signs Temp Pulse Pulse Resp BP BP Pulse Ox 02/12/21 12:10 36.9 C 83 20 111/60 95 02/12/21 09:03 36.8 C 81 18 117/64 94 02/12/21 02:42 36.8 C 95 H 19 133/77 98 02/12/21 02:00 70 16 129/67 94 02/12/21 01:30 77 20 97 02/12/21 01:00 75 16 97 Resident Activity Tracking Resident Involvement: Resident Care Provided Care Provided: Adult Hospital Medicine (1) Hypertension Hypertension type: essential hypertension Qualified Code(s): I10 - Essential (primary) hypertension
--- NOTE | 2021-02-12 13:37 | XCELERA ---
[id number]
[2021-02-12] MEDS ORDERED: FAMOTIDINE 20 MG in SYRINGE 3 ML IV ONE (14:00)
[2021-02-12] MEDS ORDERED: niCARdipine HCL INJ 2.5 MG/ML 10 ML AMP ONE (14:02)
[2021-02-12] MEDS ORDERED: HEPARIN (PORCINE) 1000 UNIT/ML 10 ML (CATH LAB USE ONLY) ONE (14:02)
[2021-02-12] MEDS ORDERED: methylPREDNISolone 125 MG/2 ML VIAL ONE (14:02)
[2021-02-12] MEDS ORDERED: fentaNYL citrate 100 MCG/2 ML VIAL ONE (14:02)
[2021-02-12] MEDS ORDERED: diphenhydrAMINE 50 MG/ML VIAL ONE (14:02)
[2021-02-12] MEDS ORDERED: MIDAZOLAM HCL 1 MG/ML 2ML VIAL ONE (14:03)
[2021-02-12] MEDS ORDERED: NITROGLYCERIN/D5W 100MCG/ML 20ML SYR ONE (14:03)
--- NOTE | 2021-02-12 14:08 | Pre Anesthesia Assessment ---
Date of Service February 12, 2021 Pre Sedation Assessment Vital Signs Temp Pulse Pulse Resp BP BP Pulse Ox 02/12/21 13:30 85 16 130/72 96 02/12/21 12:10 36.9 C 83 20 111/60 95 02/12/21 09:03 36.8 C 81 18 117/64 94 02/12/21 02:42 36.8 C 95 H 19 133/77 98 02/12/21 02:00 70 16 129/67 94 02/12/21 01:30 77 20 97 02/12/21 01:00 75 16 97 02/12/21 00:30 22 96 02/12/21 00:00 75 18 135/70 95 02/11/21 22:00 68 17 95 02/11/21 21:45 75 15 95 02/11/21 21:30 82 15 96 02/11/21 21:15 79 16 97 02/11/21 21:00 84 18 96 02/11/21 20:45 77 16 94 02/11/21 20:44 78 80 24 169/95 H 95 02/11/21 19:35 36.9 C 90 19 135/81 97 Cardiovascular + regular rate and + regular rhythm Respiratory + respiratory effort normal Pre-Sedation Airway Assessment Smoking Status: Never smoker Hx Sleep Apnea: No Hx Difficult Intubation: No Short, Thick Neck: No Thyromental Distance: > or= 3.5 Finger Breadths Oral Cavity: + WNL Mallampati Class: II ASA: ASA3 NPO Status Date of Last Intake of Fluids: 02/11/21 Time of Last Intake of Fluids: 19:30 Date of Last Intake of Solid Food: 02/11/21 Time of Last Intake of Solid Foods: 19:30 Procedure Planning Contraindications for Sedation: none Current Medications Reviewed: Yes Notes The planned sedation has been discussed with the patient. Informed Consent was obtained. I have identified the patient, determined the appropriateness of sedation and have assessed the patient immediately prior to the procedure. All medicine(s) and interventions are by my order.
--- NOTE | 2021-02-12 14:36 | Post Anesthesia Assessment ---
Date of Service February 12, 2021 Post Sedation Assessment Vital Signs Temp Pulse Pulse Resp BP BP Pulse Ox 02/12/21 13:30 85 16 130/72 96 02/12/21 12:10 36.9 C 83 20 111/60 95 02/12/21 09:03 36.8 C 81 18 117/64 94 02/12/21 02:42 36.8 C 95 H 19 133/77 98 02/12/21 02:00 70 16 129/67 94 02/12/21 01:30 77 20 97 02/12/21 01:00 75 16 97 02/12/21 00:30 22 96 02/12/21 00:00 75 18 135/70 95 02/11/21 22:00 68 17 95 02/11/21 21:45 75 15 95 02/11/21 21:30 82 15 96 02/11/21 21:15 79 16 97 02/11/21 21:00 84 18 96 02/11/21 20:45 77 16 94 02/11/21 20:44 78 80 24 169/95 H 95 02/11/21 19:35 36.9 C 90 19 135/81 97 Recovery Score Activity: Moves 4 extremities Respiration: Deep Breath/Cough Circulation: +/-20% PreAnes Value Consciousness: Fully Awake Oxygen Saturation: > 92% On Room Air Discharge Sedation Level of Care: Fast Track Phase II Post Sedation Plan On clinical assessment, the patient appears to have tolerated the sedation without complications. Patient is recovering as anticipated. Patient will continue to be monitored by nursing and may be discharged when sedation discharge criteria are met per below protocol. Upon Completions of procedure up to 15 minutes continue every 5 minute vital signs and the P.A.R. score; then discharge to a Phase I or Fast Track to Phase II per the following guidelines: * Discharge Patient to appropriate Phase II area if PAR is 8 or greater or return to pre- procedure baseline. The post - procedure orders will be as directed. * If PAR score is less than 8 or not return to pre-procedure baseline then patient will follow Phase I monitoring till PAR is reached for Phase II. The Phase I may be done in procedure room or may call to secure a Phase I area. * If naloxone or flumazenil are used for reversal, hold in Phase I for continued monitoring from when last reversal dose was given for a minimum of 60 minutes or longer pending the nurse and/or physician discretion of patient condition before discharge to Phase II. Please call the Sedation Physician to re-evaluate and complete post-note for discharge to Phase II area. Do NOT discharge from procedure sedation or Phase 1 until post- sedation evaluation note is complete by procedure /sedation MD Sedation Discharge Instructions to be given to the patient at discharge to home.
--- NOTE | 2021-02-12 14:36 | Cardiac Catheterization ---
[facility] Data: Cook Starch Cardiac Status Clinical evaluation leading to the procedure CAD Presenation: Non STEMI Diagnostic Physicians Name: Carlos Banegas MD Closure Device Recommendations: CABG Cardiac Cath Procedure Full Procedure Date February 12, 2021 Pre-Procedure Diagnosis Pre-Procedure Diagnosis: Non STEMI AUC Score AUC Score: 8 Post-Procedure Diagnosis Post-Procedure Diagnosis: Severe CAD Procedure(s) Performed Procedure(s) Performed: Coronary Angiography and Left Heart Cath Technology Instructor Carlos Banegas MD Contact Worker Lithography(s) none Estimated Blood Loss Estimated Blood Loss: 7cc Medication(s) Medication(s): Fentanyl, Heparin, Lidocaine 1%, Nicardipine, Nitroglycerin and Versed Medication(s): solu-medrol, benadryl, pepcid Summary of Findings Procedure performed: Left heart catheterization, selective coronary angiography Staff cash grain farmer: Carlos Banegas MD Indication: The patient is an 86-year-old woman without a known history of cardiac disease who presented to the emergency room with symptoms of exertional chest discomfort. She was noted on laboratory study to have elevated cardiac biomarkers. Based on this information she was advised to consider coronary angiography for diagnostic purposes. Procedure in detail: The patient was informed of the risk benefits and alternatives to the intended procedure. She understood and wished to proceed. She was taken to the cardiac catheterization suite in a fasting state. Conscious sedation was administered per protocol and the patient was monitored electrocardiographically throughout today's procedure. The right radial area was prepped and draped in usual sterile fashion. This area was anesthetized using subcutaneous ministration of lidocaine solution. The right radial artery was subsequently accessed using Seldinger technique and sheath was placed over guidewire at the site. This sheath was used to facilitate passage of the cardiac catheters for selective coronary angiography and left heart catheterization. Images were obtained in multiple orthogonal views prior to removal of the catheter and sheath. Hemostasis was achieved at the access site using manual pressure. The patient tolerated procedure well. There were no immediate complications. Equipment used: 5 [place] Lohman 4 Findings Coronary angiography Left main: Left main coronary artery was relatively short but bifurcated into the left anterior descending and left circumflex arteries. There appeared to be distal left main and proximal LAD stenosis approaching 70%. Left anterior descending colon left anterior descending was a medium sized transapical vessel. It did have ostial disease. It produced a medium sized first diagonal branch and a large second diagonal branch. Just proximal to the second diagonal branch there was a 50 to 60% stenosis. Distal to the second diagonal branch the vessel was subtotally occluded with reconstitution via left to left collaterals. Left circumflex: Left circumflex was a codominant vessel. There is a discrete 99% stenosis in its proximal portion. It produced a large first OM system with approximately 70% stenosis in its proximal portion and an additional 70% stenosis in its first branch. There is also a 70% stenosis on the ongoing circumflex vessel which then produced what appeared to be a posterolateral branch. Right coronary artery: The right coronary artery was occluded at its ostium. The distal portion of the right coronary artery was reconstituted via left to right collaterals. These vessels appear to be free of obstructive disease. Codominant coronary circulation No evidence of aortic stenosis Severe coronary artery disease involving the LAD, left circumflex and right coronary artery Normal left ventricular filling pressures Hemodynamics Rest Ao:: 110/57 mmHg Final Ao: 120/63 mmHg LV: 104/-2 mmHg LVEDP 5 mmHg Recommendations Recommendations: CABG Specimens Specimens: None Radiation Exposure (mGy) 245 Contrast (mls) 40 Procedural Complication(s) None Disposition PCU I attest to the content of the Intraoperative Record and any orders documented therein. Any exceptions are noted below. [facility] Card Cath Procedure Codes Cardiac Catheterization Procedure 1: Cardiovascular Cath Procedures: 22851 Coronaries and LHC (+/-LV) Moderate Sedation Procedure 1: Sedation/Anesthesia: 63832 Mod Sedation by the same physician;Init15 Min Child Age 5 & Up Procedure 2: Sedation/Anesthesia: 83708 Mod Sedation by the same physician; Ea [id number] Minutes PG Care Time/CCT Total # of Minutes Spent Total Time Spent with Patient: Total time spent is greater than 50% in coordination of care (as documented) at patient's floor/unit and/or counseling patient:
--- NOTE | 2021-02-12 16:08 | Cardiology Consultation ---
Date of Consultation February 12, 2021 Assessment & Plan (1) NSTEMI (non-ST elevated myocardial infarction): The patient's symptoms and objective findings are consistent with progressive coronary disease. Unclear if this represents an acute coronary syndrome. However, she does have evidence of ischemia with activity. Fortunately, she continues to have preserved LV systolic function. She has been started on systemic anticoagulation received aspirin. She is on beta-blockade. I recommended coronary angiography for evaluation. We discussed the risks benefits and alternatives. She was willing to proceed. (2) Supraventricular tachycardia: No recent sustained episodes. Continue metoprolol. (3) Mitral regurgitation: Moderate. We will need to be monitored over time. History of Present Illness Reason for Consultation: Chest pain, elevated troponin Requesting Physician: Heriberto Attending Physician: Steffen Hatfield MD History of Present Illness The patient is an 86-year-old woman with a history of SVT and palpitations who presented to the emergency room with symptoms of exertional chest discomfort. The patient states that over the past couple of weeks she has had excruciating chest discomfort with activity. This tends to occur primarily when she is getting her mail. This involves ascending a slight grade. The symptoms did not resolve over several minutes with rest. She also has an element of dyspnea associated with the activity. Perhaps some dizziness as well. Due to the persistent and more severe nature of the symptoms she eventually presented to [facility] emergency room for evaluation. She is found have elevated cardiac biomarkers. The patient states she is generally sedentary. She does do some walking as described above. General housework and slow walking does not produce symptoms. However, recently she has been using a motorized shopping cart at the store and a chair lift at home due to an element of exercise intolerance. This can occasionally be weakness and not always chest pain. She has been sleeping poorly lately. She has not had any sustained episodes of palpitations but does have fleeting palpitations on occasion. Allergies Allergy/AdvReac Type Severity Reaction Status Date / Time Iodinated Contrast Media Allergy Intermediate HIVES Verified 02/11/21 21:34 atorvastatin [From Lipitor] AdvReac Intermediate myalgia Verified 02/11/21 21:34 levofloxacin [From Levaquin] AdvReac Intermediate Anxiety Verified 02/11/21 21:34 pravastatin AdvReac Intermediate myalgia Verified 02/11/21 21:34 prednisone AdvReac hyperactivi Verified 02/11/21 21:34 ty Home Medications Medication Instructions Recorded Confirmed Type multivitamin (Daily Multi-Vitamin) 1 tab PO QAM 05/13/19 02/11/21 History loratadine 10 mg tablet (Claritin) 10 mg PO DAILY 05/25/19 02/11/21 History aspirin 81 mg chewable tablet 81 mg PO QAM 06/04/19 02/11/21 History ferrous sulfate 325 mg (65 mg 325 mg PO BID 07/23/20 02/11/21 History iron) tablet metoprolol tartrate 25 mg tablet 25 mg PO BID #60 tab 08/07/20 02/11/21 Rx alprazolam 0.25 mg tablet 0.25 mg PO DAILY PRN #30 tab 01/13/21 02/11/21 Rx fluticasone propionate 50 2 spray INTNAS DAILY 02/11/21 02/11/21 History mcg/actuation nasal spray,suspension omeprazole 20 mg capsule,delayed 20 mg PO BID 02/11/21 02/11/21 History release vit C 250 mg-vit E 90 mg-zinc 40 1 tab PO BID 02/11/21 02/11/21 History mg-copper 1 [id number] capsule (PreserVision AREDS-2) vitamin B complex 1 tab PO DAILY 02/11/21 02/11/21 History Patient History Medical History Anxiety Arthritis Gastroesophageal reflux disease Hiatal hernia Hyperlipidemia Hypertension Prediabetes Per records Supraventricular tachycardia Metoprolol bid. follows with Dr. Downey (PCP) Surgical History History of cataract surgery History of D&C Family History Brother Diabetes Heart disease Cardiac disorder Father Liver cancer Sister Cardiac disorder Denies family history of Ovarian cancer Prostate cancer Myocardial infarction Breast cancer Colorectal cancer Social History Smoking Status: Never smoker Second Hand Exposure: Yes (hx as a child); Hx Alcohol Use: No Hx Substance Use: No Preferred Language: Stateless Communication Ability: Effective Visual Impairment: No Limitations Hearing Ability: Normal Staff Software Engineer Required: No Beliefs That Will Affect Care: None marital status: / marital status details: Lives alone Current Living Situation: Alone current occupational status: retired Feels Safe at Home: Yes Childhood Exposure to Second-Hand Smoke: Yes caffeine: Yes during the past year weight has: remained stable Dental Care, Regularly: Yes Physical Activity Frequency: Does not Exercise Seatbelt Use: always Sunscreen Use: No Assistive Devices: None Review of Systems Review of Systems: Per HPI. No recent fevers or chills. Physical Exam Physical Exam: She is alert and oriented x3. Mood affect appear normal. She answered all questions appropriately. HEENT: Sclerae are anicteric. Pupils are equal and reactive to light and accommodation. Extraocular movements were intact. Neuro: Cranial nerves intact Lungs: Lungs are clear to auscultation bilaterally. There are no rales wheezes or rhonchi. She has normal respiratory effort without use of accessory muscles. There is normal pulmonary excursion. Cardiac: The rhythm was regular. S1 and S2 were normal. Soft holosystolic murmur. The PMI was not markedly displaced on palpation. Abdomen: The abdomen was soft and nontender. Extremities: Patient has bilateral radial pulses that are equal in intensity. There is no evidence cyanosis or clubbing. There was no evidence of significant peripheral edema bilaterally, Estrace. Skin: There are no rashes noted on examination today. Results & Data ([facility]) Vital Signs (Past 12 Hours) Vital Signs Temp Pulse Resp BP Pulse Ox 02/12/21 13:30 85 16 130/72 96 02/12/21 12:10 36.9 C 83 20 111/60 95 02/12/21 09:03 36.8 C 81 18 117/64 94 Laboratory Results Abnormal Lab Results 02/11/21 02/11/21 02/11/21 19:40 19:40 19:40 WBC 5.75 RBC 3.85 L Hgb 11.7 L Hct 36.0 L MCV 93.5 MCH 30.4 MCHC 32.5 RDW Std Deviation 49.8 H RDW Coeff of Chris 14.7 H Plt Count 191 MPV 12.1 H Immature Gran % (Auto) 0.2 Neut % (Auto) 55.9 Lymph % (Auto) 35.3 [place] % (Auto) 6.6 Eos % (Auto) 1.7 Baso % (Auto) 0.3 Neut # (Auto) 3.21 Lymph # (Auto) 2.03 [place] # (Auto) 0.38 Eos # (Auto) 0.10 Baso # (Auto) 0.02 Immature Gran # (Auto) 0.01 PT 9.8 INR 1.0 APTT 24.8 PTT Ratio 0.9 Sodium 136 Potassium 4.2 Chloride 105 Carbon Dioxide 25 Anion Gap 6.0 BUN 14 Creatinine 1.08 Est Cr Clr Drug Dosing 27.9 Est GFR ( Amer) 53.5 Est GFR (Non-Af Amer) 46.1 BUN/Creatinine Ratio 13.1 Glucose 120 H Estimat Average Glucose Hemoglobin A1c Calcium 9.5 Phosphorus Magnesium Total Bilirubin 0.5 AST 32 ALT 26 Alkaline Phosphatase 63 Troponin I 0.891 H* Total Protein 7.9 Albumin 3.8 Globulin 4.1 H Albumin/Globulin Ratio 0.9 Triglycerides Cholesterol LDL Cholesterol, Calc VLDL Cholesterol, Calc HDL Cholesterol Cholesterol/HDL Ratio Lipase 280 Specimen Hemolysis COVID-19 Eval Order SARS-CoV-2 (PCR) 02/11/21 02/11/21 02/12/21 Unknown Unknown 03:29 WBC RBC Hgb Hct MCV MCH MCHC RDW Std Deviation RDW Coeff of Chris Plt Count MPV Immature Gran % (Auto) Neut % (Auto) Lymph % (Auto) [place] % (Auto) Eos % (Auto) Baso % (Auto) Neut # (Auto) Lymph # (Auto) [place] # (Auto) Eos # (Auto) Baso # (Auto) Immature Gran # (Auto) PT INR APTT PTT Ratio Sodium Potassium Chloride Carbon Dioxide Anion Gap BUN Creatinine Est Cr Clr Drug Dosing Est GFR ( Amer) Est GFR (Non-Af Amer) BUN/Creatinine Ratio Glucose Estimat Average Glucose 117 Hemoglobin A1c 5.7 H Calcium Phosphorus Magnesium Total Bilirubin AST ALT Alkaline Phosphatase Troponin I Total Protein Albumin Globulin Albumin/Globulin Ratio Triglycerides Cholesterol LDL Cholesterol, Calc VLDL Cholesterol, Calc HDL Cholesterol Cholesterol/HDL Ratio Lipase Specimen Hemolysis COVID-19 Eval Order Covid19 at [facility] SARS-CoV-2 (PCR) NEGATIVE 02/12/21 02/12/21 02/12/21 03:29 03:29 05:26 WBC 5.36 RBC 3.48 L Hgb 10.4 L Hct 32.4 L MCV 93.1 MCH 29.9 MCHC 32.1 RDW Std Deviation 49.3 H RDW Coeff of Chris 14.5 Plt Count 187 MPV 10.5 H Immature Gran % (Auto) 0.2 Neut % (Auto) 62.6 Lymph % (Auto) 28.4 [place] % (Auto) 7.3 Eos % (Auto) 1.1 Baso % (Auto) 0.4 Neut # (Auto) 3.36 Lymph # (Auto) 1.52 [place] # (Auto) 0.39 Eos # (Auto) 0.06 Baso # (Auto) 0.02 Immature Gran # (Auto) 0.01 PT INR APTT 58.5 H* PTT Ratio 2.2 Sodium 139 Potassium 3.7 Chloride 107 Carbon Dioxide 27 Anion Gap 5.0 BUN 13 Creatinine 0.95 Est Cr Clr Drug Dosing 31.7 Est GFR ( Amer) 62.4 Est GFR (Non-Af Amer) 53.9 BUN/Creatinine Ratio 14.1 Glucose 104 H Estimat Average Glucose Hemoglobin A1c Calcium 9.0 Phosphorus 3.0 Magnesium 2.0 Total Bilirubin AST ALT Alkaline Phosphatase Troponin I 8.950 H* Total Protein Albumin Globulin Albumin/Globulin Ratio Triglycerides 72 Cholesterol 193 LDL Cholesterol, Calc 118 VLDL Cholesterol, Calc 14 HDL Cholesterol 61 Cholesterol/HDL Ratio 3 Lipase Specimen Hemolysis COVID-19 Eval Order SARS-CoV-2 (PCR) 02/12/21 02/12/21 07:49 12:45 WBC RBC Hgb Hct MCV MCH MCHC RDW Std Deviation RDW Coeff of Chris Plt Count MPV Immature Gran % (Auto) Neut % (Auto) Lymph % (Auto) [place] % (Auto) Eos % (Auto) Baso % (Auto) Neut # (Auto) Lymph # (Auto) [place] # (Auto) Eos # (Auto) Baso # (Auto) Immature Gran # (Auto) PT INR APTT PTT Ratio Sodium Potassium Chloride Carbon Dioxide Anion Gap BUN Creatinine Est Cr Clr Drug Dosing Est GFR ( Amer) Est GFR (Non-Af Amer) BUN/Creatinine Ratio Glucose Estimat Average Glucose Hemoglobin A1c Calcium Phosphorus Magnesium Total Bilirubin AST ALT Alkaline Phosphatase Troponin I 15.400 H* 15.300 H* Total Protein Albumin Globulin Albumin/Globulin Ratio Triglycerides Cholesterol LDL Cholesterol, Calc VLDL Cholesterol, Calc HDL Cholesterol Cholesterol/HDL Ratio Lipase Specimen Hemolysis COVID-19 Eval Order SARS-CoV-2 (PCR) Diagnostic Findings Chest x-ray obtained the time admission not reveal any acute cardiopulmonary findings. Abdominal CT did not reveal any acute findings. Echocardiogram performed today revealed preserved LV systolic function with possible distal posterior wall motion abnormality. Moderate mitral regurgitation. ECG Additional Comments: EKG obtained the time admission revealed normal sinus rhythm with PACs. Some nonspecific ST changes. PG Care Time/CCT Total # of Minutes Spent Total Time Spent with Patient: Total time spent is greater than 50% in coordination of care (as documented) at patient's floor/unit and/or counseling patient: Coding Level of Care Code 93915 Initial Inpt Care Lvl 3 Diagnoses NSTEMI (non-ST elevated myocardial infarction) I21.4 Supraventricular tachycardia I47.1 Mitral regurgitation I34.0
[2021-02-13] MEDS: NITROGLYCERIN 2% OINTMENT 30GM TUBE EXT SCH ×2 (00:42→06:30)
[2021-02-13] MEDS ORDERED: LORazepam 0.5 MG/1 ML VIAL IV STA (00:55)
[2021-02-13] MEDS ORDERED: LORazepam 2 MG/4 ML VIAL ONE (00:59)
[2021-02-13] MEDS ORDERED: HALOPERIDOL LACTATE 5 MG/ML 1 ML VIAL IV STA (00:59)
[2021-02-13] MEDS ORDERED: HALOPERIDOL LACTATE 5 MG/ML 1 ML VIAL ONE (01:04)
[2021-02-13] MEDS ORDERED: NITROGLYCERIN 2% OINTMENT 30GM TUBE EXT PRN (06:28)
[2021-02-13 06:34] LABS: Hematocrit (blood only) 32.9 % (37-47); Hemoglobin 10.5 g/dL (12.0-16.0); Immature Granulocytes # (auto) 0.01 K/uL (0.00-0.02); Immature Granulocytes % (auto) 0.2 %; Lymphocytes # (auto) 0.78 K/uL (1.2-3.4); Lymphocytes % (auto) 17.3 %; Mean Corpuscular Hemoglobin 29.3 pg (25-34); Mean Corpuscular Hgb Conc 31.9 g/dL (32-36); Mean Corpuscular Volume 91.9 fL (80-100); Mean Platelet Volume 11.7 fL (7.4-10.4); Monocytes # (auto) 0.24 K/uL (0.11-0.59); Monocytes % (auto) 5.3 %; Neutrophils # (auto) 3.48 K/uL (1.4-6.5); Neutrophils % (auto) 77.2 %; Platelet Count 182 K/uL (130-400); RDW Coefficient of Variation 14.4 % (11.5-14.5); RDW Standard Deviation 48.9 fL (36.4-46.3); Red Blood Count 3.58 M/uL (4.2-5.4); White Blood Count 4.51 K/uL (4.8-10.8)
[2021-02-13 06:53] LABS: Partial Thromboplastin Ratio 2.1
[2021-02-13 06:56] LABS: BUN Creatinine Ratio 17.1 (10-20); Creatinine Clr Calc Pharmacy 28.7 ml/min; Est GFR (African American) 55.3 ml/min; Est GFR (Non-African American) 47.7 ml/min; Partial Thromboplastin Time 56.1 Seconds (21.0-31.0); Potassium 3.8 mmol/L (3.5-5.1)
[2021-02-13] MEDS: METOPROLOL TARTRATE 25 MG TAB PO SCH ×2 (08:19→21:39)
[2021-02-13] MEDS: ASPIRIN 81 MG ECTAB PO SCH (08:21)
[2021-02-13] MEDS: PANTOprazole 40 MG TAB PO SCH ×2 (08:21→21:39)
[2021-02-13] MEDS: MULTIVITAMIN TAB PO SCH (08:21)
[2021-02-13] MEDS: FERROUS SULFATE 325 MG TAB PO SCH ×2 (08:21→18:01)
[2021-02-13] MEDS: LORATADINE 10 MG TAB PO SCH (08:21)
[2021-02-13] MEDS: lisinopril 2.5 MG TAB PO SCH (08:21)
[2021-02-13] MEDS: FLUTICASONE PROPIONATE NA SPR 16 GM BTL SCH (08:22)
--- NOTE | 2021-02-13 11:54 | Cardiology Progress Note ---
Date of Service February 13, 2021 Assessment & Plan (1) NSTEMI (non-ST elevated myocardial infarction): Plan: She has severe coronary artery disease. It is unclear what particular lesion may after precipitated her recent symptoms. However, it does appear that the left circumflex provides collaterals to the distal LAD and right coronary artery. I had an extensive discussion with the patient regarding her options for revascularization. Also discussed medical management. She certainly would be high risk for bypass surgery based on her advanced age and small stature. There seems to be some percutaneous options for symptom improvement. We certainly could not predict the efficacy and tilt the procedure were done. She has talked things over with family members and thought about it overnight. At this point she is willing to proceed with percutaneous intervention which will be performed later today. We will continue aspirin, metoprolol and heparin currently. (2) Supraventricular tachycardia: Plan: No recent sustained episodes. Continue metoprolol. (3) Mitral regurgitation: Plan: Moderate. We will need to be monitored over time. Admission and Anticipated Discharge Date Admission Date: February 11, 2021 Subjective This morning patient claims to be feeling well. She apparently had some hallucinations overnight and was agitated. This was confirmed by the nursing staff. She has been ambulatory to the bathroom and back. She did not have recurrence of her index symptoms. No chest pain currently. No breathing difficulty. No dizziness. Review of Systems Review of Systems: Per HPI Physical Exam Physical Exam: She is alert and oriented x3. Mood affect appear normal. She answered all questions appropriately. HEENT: Sclerae are anicteric. Pupils are equal and reactive to light and accommodation. Extraocular movements were intact. Neuro: Cranial nerves intact Lungs: Lungs are clear to auscultation bilaterally. There are no rales wheezes or rhonchi. She has normal respiratory effort without use of accessory muscles. There is normal pulmonary excursion. Cardiac: The rhythm was regular. S1 and S2 were normal. Soft holosystolic murmur. The PMI was not markedly displaced on palpation. Extremities: Patient has bilateral radial pulses that are equal in intensity. Access site in the right wrist with ecchymosis. No significant hematoma. Good perfusion of the right hand. There is no evidence cyanosis or clubbing. There was no evidence of significant peripheral edema bilaterally, Estrace. Skin: There are no rashes noted on examination today. Results & Data ([facility]) Vital Signs (Past 12 Hours) Vital Signs Temp Pulse Pulse Resp BP Pulse Ox 02/13/21 08:13 85 02/13/21 07:25 36.8 C 85 16 128/72 94 02/13/21 04:29 36.8 C 85 18 146/75 H 100 Laboratory Results Abnormal Lab Results 02/12/21 02/12/21 02/13/21 12:45 17:48 05:22 WBC RBC Hgb Hct MCV MCH MCHC RDW Std Deviation RDW Coeff of Chris Plt Count MPV Immature Gran % (Auto) Neut % (Auto) Lymph % (Auto) [place] % (Auto) Eos % (Auto) Baso % (Auto) Neut # (Auto) Lymph # (Auto) [place] # (Auto) Eos # (Auto) Baso # (Auto) Immature Gran # (Auto) APTT 56.1 H* PTT Ratio 2.1 Sodium Potassium Chloride Carbon Dioxide Anion Gap BUN Creatinine Est Cr Clr Drug Dosing Est GFR ( Amer) Est GFR (Non-Af Amer) BUN/Creatinine Ratio Glucose Calcium Magnesium Troponin I 15.300 H* 10.800 H* 02/13/21 02/13/21 05:22 05:22 WBC 4.51 L RBC 3.58 L Hgb 10.5 L Hct 32.9 L MCV 91.9 MCH 29.3 MCHC 31.9 L RDW Std Deviation 48.9 H RDW Coeff of Chris 14.4 Plt Count 182 MPV 11.7 H Immature Gran % (Auto) 0.2 Neut % (Auto) 77.2 Lymph % (Auto) 17.3 [place] % (Auto) 5.3 Eos % (Auto) 0.0 Baso % (Auto) 0.0 Neut # (Auto) 3.48 Lymph # (Auto) 0.78 L [place] # (Auto) 0.24 Eos # (Auto) 0.00 Baso # (Auto) 0.00 Immature Gran # (Auto) 0.01 APTT PTT Ratio Sodium 139 Potassium 3.8 Chloride 108 H Carbon Dioxide 26 Anion Gap 5.0 BUN 18 Creatinine 1.05 Est Cr Clr Drug Dosing 28.7 Est GFR ( Amer) 55.3 Est GFR (Non-Af Amer) 47.7 BUN/Creatinine Ratio 17.1 Glucose 139 H Calcium 9.0 Magnesium 2.0 Troponin I Diagnostic Findings Subtotal occlusion of the LAD in its midportion. Proximal LAD disease. 100% occlusion of the right coronary artery with filling via [id number] collaterals. Severe stenosis of the proximal left circumflex with additional lesions distally. PG Care Time/CCT Total # of Minutes Spent Total Time Spent with Patient: Total time spent is greater than 50% in coordination of care (as documented) at patient's floor/unit and/or counseling patient: Coding Level of Care Code 88083 Subseq Hosp Care Lvl 3 Diagnoses NSTEMI (non-ST elevated myocardial infarction) I21.4 Supraventricular tachycardia I47.1 Mitral regurgitation I34.0
[2021-02-13] MEDS ORDERED: predniSONE 50 MG TAB PO ONE (12:00)
[2021-02-13] MEDS ORDERED: HEPARIN (PORCINE) 1000 UNIT/ML 10 ML (CATH LAB USE ONLY) ONE (12:51)
[2021-02-13] MEDS ORDERED: fentaNYL citrate 100 MCG/2 ML VIAL ONE (12:51)
[2021-02-13] MEDS ORDERED: niCARdipine HCL INJ 2.5 MG/ML 10 ML AMP ONE (12:51)
[2021-02-13] MEDS ORDERED: NITROGLYCERIN/D5W 100MCG/ML 20ML SYR ONE ×2 (12:52→13:29)
[2021-02-13] MEDS ORDERED: MIDAZOLAM HCL 1 MG/ML 2ML VIAL ONE (12:52)
--- NOTE | 2021-02-13 12:58 | Hospitalist Progress Note ---
Date of Service February 13, 2021 Assessment & Plan (1) NSTEMI (non-ST elevated myocardial infarction): Plan: April Montes is an 86yo female with PMHx significant for SVT (on metoprolol), hypertension, hyperlipidemia, GERD, hiatal hernia, anxiety, prediabetes (A1c 5.7 on 02/12/2021) admitted for NSTEMI; found to have multi- vessel disease on cardiac catheterization. NSTEMI Typical ACS symptoms. EKG with inferolateral ST depressions and T-wave inversions, Troponin peaked at 15.4. Multi-vessel disease per cardiac catheterization on 02/12 - TTE with EF 55-60%, mild apical posterior hypokinesis, and moderate MR - received high-dose Aspirin and nitro x1 in the ED, no chest pain currently - Cardiology on board - appreciate recs - patient scheduled for repeat cath today for PCI/stents - continue Heparin drip, daily Aspirin 81mg, Lopressor 25mg PO BID, Lisinopril 2.5mg PO QAM - statins contraindicated in this patient; had severe myalgias with multiple fat-soluble/water-soluble statins - EKG and nitro PRN for chest pain Chronic medical history Hypertension: Continue metoprolol; continue low-dose lisinopril Hyperlipidemia: Has had intolerance (severe myalgias) to multiple fat-soluble and water-soluble statins. Given NSTEMI care should be given to medications such as Repatha. Defer to cardiology. Prediabetes: A1c 5.7 during this hospitalization. No intervention at this time. GERD, history of stomach ulcer: Given history of stomach ulcer and GERD will continue PPI twice daily while admitted. Anxiety: Continue as needed alprazolam. Code status: DNR/DNI FEN: Heart-healthy diet, NSS @80cc/hr DVT prophylaxis: Heparin gtt Dispo: PCU with tele (2) Hyperlipidemia: (3) Hypertension: (4) Anxiety: (5) Gastroesophageal reflux disease: (6) Supraventricular tachycardia: (7) Prediabetes: Admission and Anticipated Discharge Date Admission Date: February 11, 2021 Supervising Physician Co-Signing Physician Notes Attending Attestation I also saw the patient confirmed engle portions of the history and physical examination. I discussed the case with the resident physician. I agree with the impression and plan as noted in his documentation. She now realizes she had some confusion last night. Sounds like she had a combination of mild sundowning and probably some sequelae from the sedation used during the catheterization. Nonetheless, this morning she is oriented to time date and place and has good recall of what other physicians have told her earlier today. EXAM 157/85, 87, 20, 36.5, 90% on room air Alert and oriented. No distress. Heart regular rate and rhythm. Soft systolic murmur appreciated. Lungs clear. Extremities without edema. DATA Hemoglobin 10.5, platelet count 182. BMP unremarkable except for glucose of 139. Troponin I peaked at 15.4 on 02/12, last collection 10.8. IMPRESSION AND PLAN Non-STEMI Coronary disease Statin intolerance Plan is for percutaneous intervention later today. Continue aspirin, metoprolol, and intravenous heparin. Else per resident documentation Subjective No chest pain since arrival at the hospital. Overnight the patient was intermittently confused/delirious; this morning reports knowing she is at the hospital and knows the date, but feels a little disoriented. Denies fever/chills, palpitations, SOB, cough, N/V, abdominal pain, rash. Review of Systems Review of Systems: All systems reviewed & are unremarkable except as noted in HPI & below Physical Exam Physical Exam: General: A&Ox3. NAD. Cooperative. HEENT: Atraumatic, normocephalic. Pulm: CTAB A&P. -wheezes, -rales, -rhonchi. Symmetrical chest rise. No increase work of breathing. No respiratory distress. Cardiac: RRR, -mrg. Radial pulses intact and symmetrical. Abdominal: soft, non-tender, non-distended, BS x 4 Skin: warm, dry, no rash Results & Data Results & Data ([facility]) Vital Signs (Past 12 Hours) Vital Signs Temp Pulse Pulse Resp BP Pulse Ox 02/13/21 12:47 95 H 17 157/85 H 02/13/21 12:00 36.5 C 87 20 118/63 98 02/13/21 08:13 85 02/13/21 07:25 36.8 C 85 16 128/72 94 02/13/21 04:29 36.8 C 85 18 146/75 H 100 Resident Activity Tracking Resident Involvement: Resident Care Provided Care Provided: Adult Hospital Medicine (1) Hypertension Hypertension type: essential hypertension Qualified Code(s): I10 - Essential (primary) hypertension
--- NOTE | 2021-02-13 12:59 | Pre Anesthesia Assessment ---
Date of Service February 13, 2021 Pre Sedation Assessment Vital Signs Temp Pulse Pulse Resp BP Pulse Ox 02/13/21 12:47 95 H 17 157/85 H 02/13/21 12:00 97.7 F 87 20 118/63 98 02/13/21 08:13 85 02/13/21 07:25 98.2 F 85 16 128/72 94 02/13/21 04:29 98.2 F 85 18 146/75 H 100 02/12/21 23:07 97.7 F 90 18 121/66 97 02/12/21 22:35 74 02/12/21 22:03 87 104/60 02/12/21 19:13 98.2 F 90 16 137/70 98 02/12/21 15:51 85 16 122/75 94 02/12/21 15:21 84 16 119/68 94 02/12/21 14:51 98.6 F 83 16 139/78 93 02/12/21 13:30 85 16 130/72 96 Cardiovascular RRR, no murmur, no edema Respiratory normal respiratory effort, lungs clear to auscultation Pre-Sedation Airway Assessment Smoking Status: Never smoker Hx Sleep Apnea: No Hx Difficult Intubation: No Short, Thick Neck: No Thyromental Distance: > or= 3.5 Finger Breadths Oral Cavity: + WNL Mallampati Class: III ASA: ASA3 NPO Status Date of Last Intake of Fluids: 02/12/21 Time of Last Intake of Fluids: 19:30 Date of Last Intake of Solid Food: 02/12/21 Time of Last Intake of Solid Foods: 19:30 Procedure Planning Contraindications for Sedation: none Current Medications Reviewed: Yes Notes The planned sedation has been discussed with the patient. Informed Consent was obtained. I have identified the patient, determined the appropriateness of sedation and have assessed the patient immediately prior to the procedure. All medicine(s) and interventions are by my order.
[2021-02-13] MEDS ORDERED: diphenhydrAMINE 50 MG/ML VIAL IV SCH (13:00)
[2021-02-13] MEDS ORDERED: FAMOTIDINE 20 MG in SYRINGE 3 ML IV SCH (13:00)
[2021-02-13] MEDS ORDERED: methylPREDNISolone 125 MG/2 ML VIAL ONE (13:03)
[2021-02-13] MEDS ORDERED: METOPROLOL TARTRATE 1 MG/ML VIAL IV ONE ×2 (13:43→13:54)
[2021-02-13] MEDS ORDERED: ADENOSINE IV SOLN 3 MG/ML 2 ML VIAL IV ONE ×2 (13:44→13:48)
[2021-02-13] MEDS ORDERED: AMIODARONE 360MG / 200ML D5W (CATH LAB USE ONLY) ONE (13:50)
[2021-02-13] MEDS ORDERED: AMIODARONE 150MG / 100ML D5W (CATH LAB USE ONLY) ONE (13:51)
--- NOTE | 2021-02-13 13:59 | Post Anesthesia Assessment ---
Date of Service February 13, 2021 Post Sedation Assessment Vital Signs Temp Pulse Pulse Resp BP Pulse Ox 02/13/21 12:40 157/85 H 02/13/21 12:00 97.7 F 87 20 118/63 98 02/13/21 08:13 85 02/13/21 07:25 98.2 F 85 16 128/72 94 02/13/21 04:29 98.2 F 85 18 146/75 H 100 02/12/21 23:07 97.7 F 90 18 121/66 97 02/12/21 22:35 74 02/12/21 22:03 87 104/60 02/12/21 19:13 98.2 F 90 16 137/70 98 02/12/21 15:51 85 16 122/75 94 02/12/21 15:21 84 16 119/68 94 02/12/21 14:51 98.6 F 83 16 139/78 93 Recovery Score Activity: Moves 4 extremities Respiration: Deep Breath/Cough Circulation: +/-20% PreAnes Value Consciousness: Fully Awake Oxygen Saturation: > 92% On Room Air Discharge Sedation Level of Care: Fast Track Phase II Post Sedation Plan On clinical assessment, the patient appears to have tolerated the sedation without complications. Patient is recovering as anticipated. Patient will continue to be monitored by nursing and may be discharged when sedation discharge criteria are met per below protocol. Upon Completions of procedure up to 15 minutes continue every 5 minute vital signs and the P.A.R. score; then discharge to a Phase I or Fast Track to Phase II per the following guidelines: * Discharge Patient to appropriate Phase II area if PAR is 8 or greater or return to pre- procedure baseline. The post - procedure orders will be as directed. * If PAR score is less than 8 or not return to pre-procedure baseline then patient will follow Phase I monitoring till PAR is reached for Phase II. The Phase I may be done in procedure room or may call to secure a Phase I area. * If naloxone or flumazenil are used for reversal, hold in Phase I for continued monitoring from when last reversal dose was given for a minimum of 60 minutes or longer pending the nurse and/or physician discretion of patient condition before discharge to Phase II. Please call the Sedation Physician to re-evaluate and complete post-note for discharge to Phase II area. Do NOT discharge from procedure sedation or Phase 1 until post- sedation evaluation note is complete by procedure /sedation MD Sedation Discharge Instructions to be given to the patient at discharge to home.
--- NOTE | 2021-02-13 14:01 | Post Operative Brief Note ---
Cardiology Brief Post Op Date of Surgery February 13, 2021 Pre & Post Diagnosis CAD Procedure PCI Fiberglass Roving Winder Carlos Fierro MD It Integration Architect Deibler Estimated Blood Loss 10 Findings See Below 98% proximal circumflex PCI of ostial/proximal circumflex with single JASPER (3.0 x 8 mm Xience). Drains Other Anesthesia Type RN Sedation Disposition Accompanied Patient To Recovery: Yes Disposition: PCU Overlapping Procedure I was present for: the critical portions of procedure. I was immediately available: during the entire case. Back up surgeon: was not required during procedure.
[2021-02-13] MEDS ORDERED: STAT IV Infusion **Titration per Protocol STA (14:03)
[2021-02-13] MEDS ORDERED: 0.2 MICRON FILTER SET 1 EA IV ONE (14:03)
[2021-02-13] MEDS ORDERED: AMIODARONE / D5W 150 MG/100 ML BAG IV STA (14:03)
[2021-02-13] MEDS ORDERED: AMIODARONE IV BOLUS & DRIP IV STA (14:03)
[2021-02-13] MEDS ORDERED: SODIUM CHLORIDE 0.9% 1000ML 1,000 ML IV SCH (14:15)
[2021-02-13] MEDS ORDERED: CLOPIDOGREL BISULFATE 300 MG TAB ONE (14:15)
[2021-02-13] MEDS ORDERED: AMIODARONE / D5W 360 MG/200 ML BAG IV ONE (14:15)
[2021-02-13] MEDS: SODIUM CHLORIDE 0.9% 1000ML 1,000 ML IV SCH (14:50)
--- NOTE | 2021-02-13 16:49 | Electrocardiogram Report ---
Test Reason : Blood Pressure : / mmHG Vent. Rate : 084 BPM Atrial Rate : 084 BPM P-R Int : 132 ms QRS Dur : 072 ms QT Int : 360 ms P-R-T Axes : 075 044 233 degrees QTc Int : 425 ms Poor data quality, interpretation may be adversely affected Normal sinus rhythm Marked ST abnormality, possible inferior subendocardial injury Abnormal ECG When compared with ECG of 04-JUN-2019 11:33, ST now depressed in Inferior leads ST now depressed in Anterolateral leads T wave inversion now evident in Inferior leads T wave inversion now evident in Anterolateral leads Confirmed by Carlos Banegas ([id number]) on 02/13/2021 4:49:14 PM Referred By: REFERRED SELF Confirmed By:Kyle Banegas
--- NOTE | 2021-02-13 16:53 | Electrocardiogram Report ---
Test Reason : Blood Pressure : / mmHG Vent. Rate : 081 BPM Atrial Rate : 081 BPM P-R Int : 114 ms QRS Dur : 072 ms QT Int : 350 ms P-R-T Axes : 095 024 176 degrees QTc Int : 406 ms Poor data quality, interpretation may be adversely affected Normal sinus rhythm Cannot rule out Anterior infarct , age undetermined Abnormal ECG When compared with ECG of 11-FEB-2021 19:40, (unconfirmed) ST segement depressions improved Confirmed by Carlos Banegas ([id number]) on 02/13/2021 4:53:12 PM Referred By: REFERRED SELF Confirmed By:Kyle Banegas
--- NOTE | 2021-02-13 17:07 | Electrocardiogram Report ---
Test Reason : Blood Pressure : / mmHG Vent. Rate : 085 BPM Atrial Rate : 085 BPM P-R Int : 134 ms QRS Dur : 080 ms QT Int : 408 ms P-R-T Axes : 008 045 -76 degrees QTc Int : 485 ms Sinus rhythm with Premature atrial complexes Nonspecific T wave abnormality Prolonged QT Abnormal ECG When compared with ECG of 11-FEB-2021 20:38, (unconfirmed) Premature atrial complexes are now Present ST no longer depressed in Lateral leads QT has lengthened Confirmed by Carlos Banegas ([id number]) on 02/13/2021 5:06:53 PM Referred By: REFERRED SELF Confirmed By:Kyle Banegas
[2021-02-13] MEDS: HEPARIN SODIUM/DEXTROSE 25,000 UNITS/500 ML BAG IV SCH (19:09)
[2021-02-13] MEDS: AMIODARONE / D5W 360 MG/200 ML BAG IV SCH (19:09)
--- NOTE | 2021-02-13 21:46 | Cardiac Catheterization ---
[facility] Data: Rolling Attendant Cardiac Status Clinical evaluation leading to the procedure CAD Presenation: Non STEMI Anginal Classification: CCS IV Heart Failure: No Cardiogenic Shock within 24 Hours: No Cardiac Arrest within 24 Hours: No Imaging Studies Past 6 Months: Yes Stress Studies Past 6 Months: No Diagnostic Physicians Name: Carlos Fierro MD Status: Elective Closure Device Percutaneous Entry Location: Radial Recommendations: PCI without planned CABG PCI Indication: PCI for high risk Non-VAMSHI Lesion Segment Name: proximal circumflex Culprit Artery: Yes Stenosis Prior to Rx (%): 98 Chronic Total Occlusion: No IVUS: No FFR: No Pre-Procedure KINGSTON Flow: 3 Previously Treated Lesion: No Lesion Complexity: Non-High/Non-C Lesion Length (mm): 8 Thrombus Present: Yes Bifurcation Lesion: No Guidewire Across Lesion: Stenosis Post-Procedure (%): 0 Post-Procedure KINGSTON Flow: 3 Devices(s) Deployed: Yes Yes Intraprocedure Events Significant Disection: No Perforation: No Cardiac Cath Procedure Full Procedure Date February 13, 2021 Pre-Procedure Diagnosis Pre-Procedure Diagnosis: Non STEMI AUC Score AUC Score: 8 Post-Procedure Diagnosis Post-Procedure Diagnosis: Severe CAD, Successful PCI and Normal Intracardiac Pressures Procedure(s) Performed Procedure(s) Performed: Coronary Angiography, Left Heart Cath and Drug Eluting Stent Laboratory Animal Caretaker Carlos Fierro MD Strip Machine Tender(s) Deibler Estimated Blood Loss Estimated Blood Loss: 10 ml Medication(s) Medication(s): Adenosine, Clopidogrel, Fentanyl, Heparin, Lidocaine 1%, Metoprolol, Nicardipine, Nitroglycerin and Versed Medication(s): Amiodarone Summary of Findings Indication: High risk NTEMI, multivessel disease Access: 6Fr Right Radial artery Catheters: EBU 3.5 guide Findings: For full details of patient's coronary angiography please see cath report dictated by Dr. Banegas. Briefly patient found to have severe multivessel disease and CABG recommended. Patient declined CABG and here today for PCI of 95+% proximal circumflex stenosis. -- PCI -- Antithrombotic therapy: Heparin, Clopidogrel Procedure: Left main cannulated with EBU 3.5 guide Datapower Consultant 50 wire passed across lesion into distal vessel Proximal circumflex lesion predilated with 2.5 compliant balloon Dilated lesion stented with 3.0 x 8 mm Xience JASPER Stent post-dilated with 3.0 noncompliant balloon IC vasodilators administered for spasm Post procedure KINGSTON 3 flow, stent well expanded with mild residual stenosis and no apparent cardiac complications. Periprocedure course complicated by SVT to 170s. Received lopressor 2.5, adenosine with conversion to AF with RVR to 150s. Initially with AF with hypotensive to 80s and had worsened chest discomfort. Received additional lopressor and loaded with amiodarone. To holding area in AF to 120s with improved chest discomfort and hemodynamically stable after IV fluids. Arterial Closure: TR Band Summary: 1. Successful PCI of ostial/proximal circumflex with single JASPER (3.0 x 8 mm Xience JASPER). 2. Karyn-procedure atrial fibrillation with RVR Recommendations: To PCU for continued monitoring Loaded with clopidogrel 600mg in mushroom laborer Continue dual-antiplatelet therapy for at least 1 year Consult cardiac Rehab Continue amiodarone, additional AV allen agents for rate control. Maximize antianginal therapy. If refractory anginal symptoms in future possible PCI to mid LAD could be considered. Hemodynamics Rest Ao:: 141/60/96 Final Ao: 113/62/78 LV: 139/16 Recommendations Recommendations: PCI without planned CABG Specimens Specimens: None Radiation Exposure (mGy) 887 Contrast (mls) 50 Fluids (cc crystalloids) Fluids (cc crystalloids): 100 Drains Drains: none Anesthesia moderate 7092-3090 Procedural Complication(s) None Disposition PCU I attest to the content of the Intraoperative Record and any orders documented therein. Any exceptions are noted below. [facility] Card Cath Procedure Codes Cardiac Catheterization Procedure 1: Cardiovascular Cath Procedures: 67869 Left Heart Cath (+/-LV) Moderate Sedation Procedure 1: Sedation/Anesthesia: 70689 Mod Sedation by the same physician;Init15 Min Child Age 5 & Up Procedure 2: Sedation/Anesthesia: 50604 Mod Sedation by the same physician; Ea [id number] Minutes Stenting Procedure 1: Cardiovascular Stent Procedures: 82193 Perc transcatheter placement of intracoronary stent(s), with ang PG Care Time/CCT Total # of Minutes Spent Total Time Spent with Patient: Total time spent is greater than 50% in coordination of care (as documented) at patient's floor/unit and/or counseling patient:
[2021-02-14] MEDS: SODIUM CHLORIDE 0.9% 1000ML 1,000 ML IV SCH ×2 (01:31→19:24)
--- NOTE | 2021-02-14 08:00 | Hospitalist Progress Note ---
Date of Service February 14, 2021 Assessment & Plan (1) NSTEMI (non-ST elevated myocardial infarction): Plan: April Montes is an 86yo female with PMHx significant for SVT (on metoprolol), hypertension, hyperlipidemia, GERD, hiatal hernia, anxiety, prediabetes (A1c 5.7 on 02/12/2021) admitted for NSTEMI; found to have multi- vessel disease on cardiac catheterization. NSTEMI s/p JASPER to Left Circumflex Typical ACS symptoms. EKG with inferolateral ST depressions and T-wave inversions, Troponin peaked at 15.4. Multi-vessel disease per cardiac catheterization on 02/12 - TTE with EF 55-60%, mild apical posterior hypokinesis, and moderate MR - received high-dose Aspirin and nitro x1 in the ED, no chest pain currently - Cardiology consulted -troponin I peaked at 15.4. -found to have multivessel disease at cardiac catheterization. -bypass surgery is recommended, however, the patient was not interested. -had a JASPER placed in the proximal LCx yesterday by Dr. Fierro. -dual anti-platelet therapy for least 1 year. -stable for hospital discharge from a cardiac perspective. - daily Aspirin 81mg, clopidogrel 75mg daily, Lopressor 25mg PO BID, Lisinopril 2.5mg PO QAM - statins contraindicated in this patient; had severe myalgias with multiple fat-soluble/water-soluble statins - EKG and nitro PRN for chest pain - PT/OT consulted for evaluation of rehab needs vs safety for home Confusion - Patient aware of this issue and understands this may be drug side effects in conjunction with being in hospital - Responding well to reorientation - Avoid sedating meds as much as possible - Continue to monitor closely Chronic Medical history Hypertension: Continue metoprolol; continue low-dose lisinopril Hyperlipidemia: Has had intolerance (severe myalgias) to multiple fat-soluble and water-soluble statins. Given NSTEMI care should be given to medications such as Repatha. Defer to cardiology. Prediabetes: A1c 5.7 during this hospitalization. No intervention at this time. GERD, history of stomach ulcer: Given history of stomach ulcer and GERD will continue PPI twice daily while admitted. Anxiety: Continue as needed alprazolam. Code status: DNR/DNI FEN: Heart-healthy diet DVT prophylaxis: Started on DAPT after PCI/JASPER; defer chemoppx at this time Dispo: PCU/Tele (2) Hyperlipidemia: (3) Hypertension: (4) Anxiety: (5) Gastroesophageal reflux disease: (6) Supraventricular tachycardia: (7) Prediabetes: Admission and Anticipated Discharge Date Admission Date: February 11, 2021 Supervising Physician Co-Signing Physician Notes I also saw the patient confirmed engle portions of the history and physical examination. I discussed the case with the resident physician and the management consultant. I agree with the impression and plan as noted in the resident documentation. She is mildly confused this morning; similar to what she had 2 days ago. She willingly admits that she is confused, and she does well with reorientation. Some of the confusion may be secondary to the IV Benadryl given yesterday; this can have long-lasting effects in the elderly. She denies any chest pain or shortness of breath. EXAM 105/64, 77, 16, 36.5, 94% room air Alert and oriented. No distress. Heart regular rate and rhythm. Soft systolic murmur appreciated. Lungs clear. Extremities without edema. DATA Hemoglobin 10.5, platelet count 202. Sodium 140, potassium 3.6, BUN 23, creatinine 1.11 IMPRESSION AND PLAN Non-STEMI, status post drug-eluting stent to circumflex Coronary disease Statin intolerance Plan is for percutaneous intervention later today. Continue aspirin, Plavix, metoprolol, and lisinopril. Will need physical therapy evaluation; unsure if she is able to return home independently at this point time. Else per resident documentation Subjective No acute events overnight. Patient seen at bedside and seems mildly confused as well as having tangential thoughts at times. She admits to feeling confused at times and not feeling as "sharp" as usual. Otherwise denies CP, palp, n/v, SOB, cough, abd pain, diarrhea, constipation. Review of Systems Review of Systems: per HPI Physical Exam Physical Exam: General: A&Ox3. NAD. Cooperative. HEENT: Atraumatic, normocephalic. Pulm: CTAB A&P. -wheezes, -rales, -rhonchi. Symmetrical chest rise. No increase work of breathing. No respiratory distress. Cardiac: RRR, -mrg. Radial pulses intact and symmetrical. Abdominal: soft, non-tender, non-distended, BS x 4 Skin: warm, dry, no rash Results & Data Results & Data ([facility]) Vital Signs (Past 12 Hours) Vital Signs Temp Pulse Pulse Resp BP Pulse Ox 02/14/21 07:51 101 H 02/14/21 06:18 36.4 C L 103 H 18 158/80 H 96 02/14/21 00:56 36.6 C 82 18 150/78 H 93 02/13/21 23:00 81 02/13/21 21:38 86 144/81 H 02/13/21 20:44 36.4 C L 78 17 118/68 96 Resident Activity Tracking Resident Involvement: Resident Care Provided Care Provided: Adult Hospital Medicine (1) Hypertension Hypertension type: essential hypertension Qualified Code(s): I10 - Essential (primary) hypertension
[2021-02-14 08:04] LABS: Hematocrit (blood only) 33.2 % (37-47); Hemoglobin 10.5 g/dL (12.0-16.0); Immature Granulocytes # (auto) 0.01 K/uL (0.00-0.02); Immature Granulocytes % (auto) 0.1 %; Lymphocytes # (auto) 0.48 K/uL (1.2-3.4); Lymphocytes % (auto) 5.9 %; Mean Corpuscular Hemoglobin 29.5 pg (25-34); Mean Corpuscular Hgb Conc 31.6 g/dL (32-36); Mean Corpuscular Volume 93.3 fL (80-100); Mean Platelet Volume 11.1 fL (7.4-10.4); Monocytes # (auto) 0.62 K/uL (0.11-0.59); Monocytes % (auto) 7.6 %; Neutrophils # (auto) 7.07 K/uL (1.4-6.5); Neutrophils % (auto) 86.4 %; Platelet Count 202 K/uL (130-400); RDW Coefficient of Variation 14.9 % (11.5-14.5); RDW Standard Deviation 51.2 fL (36.4-46.3); Red Blood Count 3.56 M/uL (4.2-5.4); White Blood Count 8.18 K/uL (4.8-10.8)
[2021-02-14 08:20] LABS: Creatinine Clr Calc Pharmacy 27.2 ml/min; Est GFR (African American) 51.7 ml/min; Est GFR (Non-African American) 44.6 ml/min; Potassium 3.6 mmol/L (3.5-5.1)
[2021-02-14 08:23] LABS: Phosphorus 3.6 mg/dl (2.5-4.9)
[2021-02-14] MEDS: PANTOprazole 40 MG TAB PO SCH ×2 (09:53→21:45)
[2021-02-14] MEDS: MULTIVITAMIN TAB PO SCH (09:54)
[2021-02-14] MEDS: METOPROLOL TARTRATE 25 MG TAB PO SCH ×2 (09:54→21:45)
[2021-02-14] MEDS: ASPIRIN 81 MG ECTAB PO SCH (09:54)
[2021-02-14] MEDS: FERROUS SULFATE 325 MG TAB PO SCH ×2 (09:54→17:19)
[2021-02-14] MEDS: LORATADINE 10 MG TAB PO SCH (09:55)
[2021-02-14] MEDS: FLUTICASONE PROPIONATE NA SPR 16 GM BTL SCH (09:55)
[2021-02-14] MEDS: lisinopril 2.5 MG TAB PO SCH (09:55)
[2021-02-14] MEDS: CLOPIDOGREL BISULFATE 75 MG TAB PO SCH (09:56)
--- NOTE | 2021-02-14 13:47 | Cardiology Progress Note ---
Date of Service February 14, 2021 Assessment & Plan (1) NSTEMI (non-ST elevated myocardial infarction): Plan: -troponin I peaked at 15.4. -found to have multivessel disease at cardiac catheterization. -bypass surgery is recommended, however, the patient was not interested. -had a JASPER placed in the proximal LCx yesterday by Dr. Fierro. -dual anti-platelet therapy for least 1 year. -stable for hospital discharge from a cardiac perspective. (2) Supraventricular tachycardia: Plan: -pastry chef is benign. -continue metoprolol. (3) Mitral regurgitation: Plan: -moderate in degree on current echocardiogram. -consider repeat echocardiogram in approximately 1 year. Admission and Anticipated Discharge Date Admission Date: February 11, 2021 Subjective The patient is resting comfortably in bed without complaints of chest pain or dyspnea. Physical Exam Physical Exam: In general is well-developed well-nourished white female in no acute distress. HEENT exam is negative. Neck is supple with full carotid upstrokes. No obvious bruits. Jugular is pressure is flat at 90. Cardiovascular exam reveals a regular rhythm with normal S1 and S2. A 2/6 apical holosystolic murmur is noted. Abdomen is soft nontender without bruits extremities reveal intact radial artery pulses bilaterally. There is no peripheral edema. Results & Data ([facility]) Vital Signs (Past 12 Hours) Vital Signs Temp Pulse Pulse Resp BP Pulse Ox 02/14/21 11:55 36.5 C 77 16 105/64 94 02/14/21 09:52 76 123/62 02/14/21 07:51 101 H 02/14/21 06:18 36.4 C L 103 H 18 158/80 H 96 Diagnostic Findings gas plant dispatcher notes normal sinus rhythm. PG Care Time/CCT Total # of Minutes Spent Total Time Spent with Patient: Total time spent is greater than 50% in coordination of care (as documented) at patient's floor/unit and/or counseling patient: Coding Level of Care Code 30908 Subseq Hosp Care Lvl 3 Diagnoses NSTEMI (non-ST elevated myocardial infarction) I21.4 Supraventricular tachycardia I47.1 Mitral regurgitation I34.0
[2021-02-14] MEDS ORDERED: MELATONIN 3 MG TAB PO PRN (14:36)
[2021-02-14] MEDS: AMIODARONE / D5W 360 MG/200 ML BAG IV SCH (18:57)
[2021-02-15 05:54] LABS: Hematocrit (blood only) 34.8 % (37-47); Immature Granulocytes # (auto) 0.02 K/uL (0.00-0.02); Immature Granulocytes % (auto) 0.2 %; Lymphocytes # (auto) 0.58 K/uL (1.2-3.4); Lymphocytes % (auto) 6.3 %; Mean Corpuscular Hemoglobin 29.6 pg (25-34); Mean Corpuscular Hgb Conc 31.6 g/dL (32-36); Mean Corpuscular Volume 93.5 fL (80-100); Mean Platelet Volume 11.3 fL (7.4-10.4); Monocytes # (auto) 0.67 K/uL (0.11-0.59); Monocytes % (auto) 7.3 %; Neutrophils # (auto) 7.91 K/uL (1.4-6.5); Neutrophils % (auto) 86.2 %; Platelet Count 188 K/uL (130-400); RDW Coefficient of Variation 15.2 % (11.5-14.5); RDW Standard Deviation 51.6 fL (36.4-46.3); Red Blood Count 3.72 M/uL (4.2-5.4); White Blood Count 9.18 K/uL (4.8-10.8)
[2021-02-15 06:19] LABS: BUN Creatinine Ratio 21.2 (10-20); Calcium 8.8 mg/dl (8.5-10.1); Creatinine Clr Calc Pharmacy 29.7 ml/min; Est GFR (African American) 55.9 ml/min; Est GFR (Non-African American) 48.3 ml/min; Magnesium 1.8 mg/dl (1.8-2.4); Potassium 3.3 mmol/L (3.5-5.1)
[2021-02-15 06:21] LABS: Phosphorus 2.1 mg/dl (2.5-4.9)
[2021-02-15] MEDS ORDERED: POTASSIUM PHOS 3 MMOL/1 ML INFUSION IV STA (07:01)
[2021-02-15] MEDS ORDERED: POTASSIUM PHOSPHATE 15 MMOL in SODIUM CHLORIDE 0.9% 250 ML IV ONE (07:45)
[2021-02-15] MEDS: SODIUM CHLORIDE 0.9% 1000ML 1,000 ML IV SCH (08:10)
[2021-02-15] MEDS: MAGNESIUM SULFATE / D5W 1 GM/100 ML BAG IV SCH ×2 (08:10→10:00)
[2021-02-15] MEDS: MULTIVITAMIN TAB PO SCH (08:20)
[2021-02-15] MEDS: FERROUS SULFATE 325 MG TAB PO SCH ×2 (08:20→16:27)
[2021-02-15] MEDS: METOPROLOL TARTRATE 25 MG TAB PO SCH ×2 (08:20→20:07)
[2021-02-15] MEDS: PANTOprazole 40 MG TAB PO SCH (08:20)
[2021-02-15] MEDS: LORATADINE 10 MG TAB PO SCH (08:20)
[2021-02-15] MEDS: CLOPIDOGREL BISULFATE 75 MG TAB PO SCH (08:20)
[2021-02-15] MEDS: FLUTICASONE PROPIONATE NA SPR 16 GM BTL SCH (08:21)
[2021-02-15] MEDS: ASPIRIN 81 MG ECTAB PO SCH (08:21)
[2021-02-15] MEDS: lisinopril 2.5 MG TAB PO SCH (08:21)
--- NOTE | 2021-02-15 10:46 | XRay Report ---
SINGLE VIEW CHEST CLINICAL HISTORY: Change in mental status. FINDINGS: An AP, portable, upright chest radiograph is compared to study dated 02/11/2021. The examina tion is degraded by portable technique and patient rotation. The heart is enlarged. The pulmonary va sculature is noncongested. Chronic interstitial thickening is similar to previous. Small pleural effu sions are noted with bibasilar atelectasis. No airspace consolidation is seen typical for pneumonia. No pneumothorax is seen. The skeletal structures are osteopenic. The bony thorax is grossly intact. IMPRESSION: Cardiomegaly and small pleural effusions. ACT 112: Negative or not required by law. Electronically signed by: Karri Peñaloza M.D. 02/15/2021 10:45 AM
--- NOTE | 2021-02-15 11:00 | CT Scan Report ---
CT SCAN OF THE BRAIN WITHOUT IV CONTRAST CLINICAL HISTORY: Change in mental status COMPARISON STUDY: No priors. TECHNIQUE: Unenhanced axial CT scan of the brain is performed from the vertex to the skull base. A do se lowering technique was utilized adhering to the principles of ALARA. CT DOSE: 537.48 mGy.cm FINDINGS: Brain parenchyma: There are age-related involutional changes noting moderate subcortical and periven tricular microangiopathic change. There is no hemorrhage, mass effect, or evidence of acute territori al ischemia by CT criteria. Mckinley-white matter differentiation is preserved. No extra-axial fluid shonna ection is seen. Ventricles, sulci, cisterns: Prominent secondary to involutional change. Intracranial vasculature: There is atherosclerotic calcification of the cavernous carotid and vertebr al arteries. Calvarium: Unremarkable. Sinuses and mastoids: The visualized paranasal sinuses are clear. The mastoid air cells are well pneu matized. Orbits: The bony orbits are grossly intact. There are bilateral ocular lens implants. IMPRESSION: There is no hemorrhage, mass effect, or evidence of acute territorial ischemia by CT jason ovalles. ACT 112: Negative or not required by law. Electronically signed by: Karri Peñaloza M.D. 02/15/2021 10:59 AM
--- NOTE | 2021-02-15 11:31 | Hospitalist Progress Note ---
Date of Service February 15, 2021 Assessment & Plan (1) NSTEMI (non-ST elevated myocardial infarction): Plan: April Montes is an 86yo female with PMHx significant for SVT (on metoprolol), hypertension, hyperlipidemia, GERD, hiatal hernia, anxiety, prediabetes (A1c 5.7 on 02/12/2021) admitted for NSTEMI; found to have multi- vessel disease on cardiac catheterization. Acute Encephalopathy Unclear etiology. Progressively worsening confusion/disorientation for the last three days. Unlikely to be due to PCI x2 with associated sedative medications given worsening status today. No focal neurologic deficits on exam although cannot fully r/o stroke without imaging. Also no focal infectious symptoms. Metabolically stable as well. Cannot safely assume hospital-induced delirium without further work-up. - CT head w/o contrast today without stroke/hemorrhage - CXR with cardiomegaly and small bilateral pleural effusions - likely 2/2 NSTEMI and possible previous ACS events as well - CRP elevated at 4.94 but Procalcitonin negative - UA ordered - pending - will obtain blood cultures given elevated CRP - Avoid sedating meds as much as possible; frequent re-orientation per nursing - Continue to monitor closely, consider Brain MRI tomorrow if infectious work-up remains negative NSTEMI s/p JASPER to Left Circumflex Typical ACS symptoms. EKG with inferolateral ST depressions and T-wave inversions, Troponin peaked at 15.4. Multi-vessel disease per cardiac catheterization on 02/12 - TTE with EF 55-60%, mild apical posterior hypokinesis, and moderate MR - received high-dose Aspirin and nitro x1 in the ED, no chest pain currently - Troponin I peaked at 15.4 on 02/12 - JASPER x1 in LCx on 02/13, POD 2 - Cardiology on board - appreciate recs - continue DAPT for at least 1 year. - continue Aspirin 81mg, Clopidogrel 75mg, Lopressor 25mg PO BID, Lisinopril 2.5mg PO QAM - statins contraindicated in this patient; had severe myalgias with multiple fat-soluble/water-soluble statins - EKG and nitro PRN for chest pain - PT/OT consulted for evaluation of rehab needs vs safety for home Chronic Medical history Hypertension: Continue metoprolol; continue low-dose lisinopril Hyperlipidemia: Has had intolerance (severe myalgias) to multiple fat-soluble and water-soluble statins. Given NSTEMI care should be given to medications such as Repatha. Defer to cardiology. Prediabetes: A1c 5.7 during this hospitalization. No intervention at this time. GERD, history of stomach ulcer: Given history of stomach ulcer and GERD will continue PPI twice daily while admitted. Anxiety: Continue as needed alprazolam. Code status: DNR/DNI FEN: Heart-healthy diet, stopped IVFs today DVT prophylaxis: Started on DAPT after PCI/JASPER; defer chemoppx at this time Dispo: PCU/Tele (2) Hyperlipidemia: (3) Hypertension: (4) Anxiety: (5) Gastroesophageal reflux disease: (6) Supraventricular tachycardia: (7) Prediabetes: Admission and Anticipated Discharge Date Admission Date: February 11, 2021 Supervising Physician Co-Signing Physician Notes I also saw the patient confirmed engle portions of the history and physical examination. I discussed the case with the resident physician and the consultant rn. I agree with the impression and plan as noted in the resident documentation. She is significantly confused this morning. On days previous, she was able to recognize her confusion. Today she has been moved to a 1:1 room. She thinks she is in a pharmacy. She believes she is talking to family members and is getting ready to attend to play. She denies any chest pain or shortness of breath. She is a 1 person assist ambulatory to the bathroom. EXAM 161/83, 95, 16, 36.6, 92% on room air Alert and oriented. No distress. Heart regular rate and rhythm. Soft systolic murmur appreciated. Lungs clear. Extremities without edema. No neurologic deficits appreciated; equal strength in upper and lower extremities, symmetrical. DATA Hemoglobin 11, platelet count 188. Sodium 141, potassium 3.3, BUN 22, creatinine 1.[address] scan of the brain done today shows no evidence of hemorrhage, mass-effect, or ischemia. A chest x-ray done today shows cardiomegaly; no consolidation or overt failure. IMPRESSION AND PLAN Non-STEMI, status post drug-eluting stent to circumflex Mental status change/confusion, worse today compared to yesterday Coronary disease Statin intolerance From a cardiac standpoint, she is ready for discharge. However, her mental status changes have actually progressed. Etiology is not clear. Originally I thought was secondary to medications used as sedatives during catheterizations; but we are more than 48 hours removed and her confusion is actually worse. In reviewing the outpatient chart, she had a mini cog completed at her October 09, 2020 Medicare wellness visit at which time she scored a perfect score. CT scan of the head and chest x-ray done today showed no acute findings. Blood cultures were drawn today. Urine cultures pending collection no obvious metabolic abnormalities. Will discontinue Protonix, melatonin, and Xanax Consider MRI brain tomorrow if no improvement Continue 1:1 and redirection/reorientation Else per resident documentation Subjective Patient became more confused/disoriented overnight and now requires 1-to-1 (was not agitated and did not require PRNs). This morning the patient is only A+O to self and otherwise disoriented. Denies fever/chills, chest pain, palpitations, SOB, N/V, abdominal pain, urinary symptoms. Review of Systems Review of Systems: All systems reviewed & are unremarkable except as noted in HPI & below Physical Exam Physical Exam: General: A&O to self only. Sitting in chair. Awake/alert. NAD. Cooperative. HEENT: Atraumatic, normocephalic. Pulm: CTAB A&P. -wheezes, -rales, -rhonchi. Symmetrical chest rise. No increase work of breathing. No respiratory distress. Cardiac: RRR, -mrg. Radial pulses intact and symmetrical. Abdominal: soft, non-tender, non-distended, BS x 4 Skin: warm, dry, no rash Results & Data Results & Data ([facility]) Vital Signs (Past 12 Hours) Vital Signs Temp Pulse Pulse Resp BP Pulse Ox 02/15/21 10:28 36.6 C 95 H 16 161/83 H 93 02/15/21 07:28 37.4 C 108 H 17 164/91 H 92 02/15/21 04:00 36.8 C 85 18 150/88 H 92 02/15/21 03:19 75 Resident Activity Tracking Resident Involvement: Resident Care Provided Care Provided: Adult Hospital Medicine (1) Hypertension Hypertension type: essential hypertension Qualified Code(s): I10 - Essential (primary) hypertension
[2021-02-15 18:28] LABS: Appearance Urine Clear (Clear); Bilirubin Urine Negative (Negative); Blood Urine Negative (Negative); Color Urine Yellow; Glucose Urine UA Negative (Negative); Ketones Urine Trace (Negative); Leukocyte Esterase Urine Negative (Negative); Nitrite Urine Negative (Negative); Protein Urine Negative (Negative); Specific Gravity Urine 1.012 (1.000-1.030); Urobilinogen Urine Negative (Negative)
[2021-02-16 06:00] LABS: Eosinophils # (auto) 0.05 K/uL (0-0.5); Eosinophils % (auto) 0.9 %; Hematocrit (blood only) 30.5 % (37-47); Hemoglobin 9.9 g/dL (12.0-16.0); Immature Granulocytes # (auto) 0.01 K/uL (0.00-0.02); Immature Granulocytes % (auto) 0.2 %; Lymphocytes # (auto) 0.66 K/uL (1.2-3.4); Lymphocytes % (auto) 12.2 %; Mean Corpuscular Hgb Conc 32.5 g/dL (32-36); Mean Corpuscular Volume 92.4 fL (80-100); Mean Platelet Volume 11.1 fL (7.4-10.4); Monocytes # (auto) 0.39 K/uL (0.11-0.59); Monocytes % (auto) 7.2 %; Neutrophils # (auto) 4.29 K/uL (1.4-6.5); Neutrophils % (auto) 79.5 %; Platelet Count 152 K/uL (130-400); RDW Coefficient of Variation 15.1 % (11.5-14.5); RDW Standard Deviation 51.3 fL (36.4-46.3)
[2021-02-16 06:19] LABS: Albumin Level 2.4 gm/dl (3.4-5.0); BUN Creatinine Ratio 17.9 (10-20); Calcium 8.4 mg/dl (8.5-10.1); Est GFR (African American) 73.5 ml/min; Est GFR (Non-African American) 63.4 ml/min; Magnesium 2.1 mg/dl (1.8-2.4); Potassium 3.7 mmol/L (3.5-5.1)
[2021-02-16 06:23] LABS: Albumin Globulin Ratio 0.8 (0.9-2); Bilirubin,Total 0.9 mg/dl (0.2-1); C Reactive Protein 7.53 mg/dl (0-0.29); Globulin 3.2 gm/dl (2.5-4.0); Phosphorus 2.7 mg/dl (2.5-4.9); Total Protein 5.6 gm/dl (6.4-8.2)
[2021-02-16] MEDS: METOPROLOL TARTRATE 25 MG TAB PO SCH (07:31)
[2021-02-16] MEDS: CLOPIDOGREL BISULFATE 75 MG TAB PO SCH (07:32)
[2021-02-16] MEDS: lisinopril 2.5 MG TAB PO SCH (07:32)
[2021-02-16] MEDS: FERROUS SULFATE 325 MG TAB PO SCH ×2 (07:33→16:35)
[2021-02-16] MEDS: ASPIRIN 81 MG ECTAB PO SCH (07:33)
[2021-02-16] MEDS: LORATADINE 10 MG TAB PO SCH (07:34)
[2021-02-16] MEDS: FLUTICASONE PROPIONATE NA SPR 16 GM BTL SCH (07:34)
[2021-02-16] MEDS: MULTIVITAMIN TAB PO SCH (07:34)
--- NOTE | 2021-02-16 09:42 | Hospitalist Progress Note ---
Date of Service February 16, 2021 Assessment & Plan (1) NSTEMI (non-ST elevated myocardial infarction): Plan: April Montes is an 86yo female with PMHx significant for SVT (on metoprolol), hypertension, hyperlipidemia, GERD, hiatal hernia, anxiety, prediabetes (A1c 5.7 on 02/12/2021) admitted for NSTEMI; found to have multi- vessel disease on cardiac catheterization. Acute Encephalopathy, improving Progressively worsening confusion/disorientation for the last three days, with significant improvement today. Suspect delirium due to medications (stopped Xanax and Melatonin yesterday; also patient received sedative medications for PCI x2 several days ago) as well as prolonged hospital stay. Infectious work-up and stroke work-up negative yesterday. - CT head w/o contrast without stroke/hemorrhage - CXR with cardiomegaly and small bilateral pleural effusions - likely 2/2 NSTEMI and possible previous ACS events as well - CRP elevated at 4.94 but Procalcitonin negative, most likely due to NSTEMI - UA clean, blood cultures pending - Avoid sedating meds as much as possible; frequent re-orientation per nursing - Continue to monitor closely while hospitalized NSTEMI s/p JASPER to Left Circumflex Typical ACS symptoms. EKG with inferolateral ST depressions and T-wave inversions, Troponin peaked at 15.4. Multi-vessel disease per cardiac catheterization on 02/12 - TTE with EF 55-60%, mild apical posterior hypokinesis, and moderate MR - received high-dose Aspirin and nitro x1 in the ED, no chest pain currently - Troponin I peaked at 15.4 on 02/12 - JASPER x1 in LCx on 02/13, POD 2 - Cardiology on board - appreciate recs - continue DAPT for at least 1 year - continue Aspirin 81mg, Clopidogrel 75mg, Lopressor 25mg PO BID, Lisinopril 2.5mg PO QAM - statins contraindicated in this patient; had severe myalgias with multiple fat-soluble/water-soluble statins - EKG and nitro PRN for chest pain - PT/OT consulted - pending Chronic Medical history Hypertension: Continue metoprolol; continue low-dose lisinopril Hyperlipidemia: Has had intolerance (severe myalgias) to multiple fat-soluble and water-soluble statins. Given NSTEMI care should be given to medications such as Repatha. Defer to cardiology. Prediabetes: A1c 5.7 during this hospitalization. No intervention at this time. GERD, history of stomach ulcer: Given history of stomach ulcer and GERD will c ontinue PPI twice daily while admitted. Anxiety: Continue as needed alprazolam. Code status: DNR/DNI FEN: Heart-healthy diet DVT prophylaxis: DAPT Dispo: med/surg, pending PT/OT recs for rehab vs home (2) Hyperlipidemia: (3) Hypertension: (4) Anxiety: (5) Gastroesophageal reflux disease: (6) Supraventricular tachycardia: (7) Prediabetes: Admission and Anticipated Discharge Date Admission Date: February 11, 2021 Subjective Patient's mental status significantly improved overnight and into this morning. Now A+O to self, place, year and situation. Amenable to rehab. No chest pain or other concerns today. Denies fever/chills, palpitations, SOB, N/V, abdominal pain, urinary symptoms, rash. Review of Systems Review of Systems: All systems reviewed & are unremarkable except as noted in HPI & below Physical Exam Physical Exam: General: A&O x3. Sitting in bed. Awake/alert. NAD. Cooperative. HEENT: Atraumatic, normocephalic. Pulm: CTAB A&P. -wheezes, -rales, -rhonchi. Symmetrical chest rise. No increase work of breathing. No respiratory distress. Cardiac: RRR, -mrg. Radial pulses intact and symmetrical. Abdominal: soft, non-tender, non-distended, BS x 4 Skin: warm, dry, no rash Results & Data Results & Data ([facility]) Vital Signs (Past 12 Hours) Vital Signs Temp Pulse Resp BP Pulse Ox 02/16/21 07:18 36.8 C 80 17 128/68 91 02/16/21 03:26 36.4 C L 97 H 22 158/72 H 94 02/15/21 22:48 36.9 C 95 H 22 154/67 H 94 (1) Hypertension Hypertension type: essential hypertension Qualified Code(s): I10 - Essential (primary) hypertension
--- NOTE | 2021-02-16 09:56 | Cardiology Progress Note ---
Date of Service February 16, 2021 Assessment & Plan (1) NSTEMI (non-ST elevated myocardial infarction): Plan: - No recurrent symptoms. However, she has not really been ambulatory. I think the true test will be when she is more ambulatory. In the absence of s ymptoms she could be safely discharged with follow-up in our clinic. She should continue her dual anti-platelet therapy. She should continue metoprolol at the current dose. Continue lisinopril. Ideally she would be on statin therapy, but appears to have had myalgias with different agents. (2) Supraventricular tachycardia: Plan: No recurrence on telemetry. Continue metoprolol. (3) Mitral regurgitation: Plan: -moderate in degree on current echocardiogram. -consider repeat echocardiogram in approximately 1 year. Admission and Anticipated Discharge Date Admission Date: February 11, 2021 Subjective this morning the patient did not have any specific complaints. She was aware of her confusion over the past few days and states that this morning she is remembering things more clearly. She did not endorse symptoms of chest discomfort or dyspnea. She cannot recall ambulating yesterday. No dizziness. No pain at her right radial access site. Physical Exam Physical Exam: She is alert and oriented x3. Mood affect appear normal. She answered all questions appropriately. HEENT: Sclerae are anicteric. Pupils are equal and reactive to light and accommodation. Extraocular movements were intact. Neuro: Cranial nerves intact Lungs: She has normal respiratory effort without use of accessory muscles. There is normal pulmonary excursion. Cardiac: The rhythm was regular. S1 and S2 were normal. Soft holosystolic murmur. The PMI was not markedly displaced on palpation. ENMT: Mallampati Class: II Respiratory: normal respiratory effort Cardiovascular: Rate/Rhythm: regular rate and regular rhythm Results & Data ([facility]) Vital Signs (Past 12 Hours) Vital Signs Temp Pulse Resp BP Pulse Ox 02/16/21 07:18 36.8 C 80 17 128/68 91 02/16/21 03:26 36.4 C L 97 H 22 158/72 H 94 02/15/21 22:48 36.9 C 95 H 22 154/67 H 94 Laboratory Results Abnormal Lab Results 02/15/21 02/15/21 02/15/21 11:11 11:11 18:00 WBC RBC Hgb Hct MCV MCH MCHC RDW Std Deviation RDW Coeff of Chris Plt Count MPV Immature Gran % (Auto) Neut % (Auto) Lymph % (Auto) Bartholomew % (Auto) Eos % (Auto) Baso % (Auto) Neut # (Auto) Lymph # (Auto) Bartholomew # (Auto) Eos # (Auto) Baso # (Auto) Immature Gran # (Auto) Sodium Potassium Chloride Carbon Dioxide Anion Gap BUN Creatinine Est Cr Clr Drug Dosing Est GFR ( Amer) Est GFR (Non-Af Amer) BUN/Creatinine Ratio Glucose Calcium Phosphorus Magnesium Total Bilirubin AST ALT Alkaline Phosphatase C-Reactive Protein 4.94 H Total Protein Albumin Globulin Albumin/Globulin Ratio Procalcitonin < 0.05 Urine Color Yellow Urine Appearance Clear Urine pH 5.0 Ur Specific Drexel 1.012 Urine Protein Negative Urine Glucose (UA) Negative Urine Ketones Trace H Urine Blood Negative Urine Nitrite Negative Urine Bilirubin Negative Urine Urobilinogen Negative Ur Leukocyte Esterase Negative 02/16/21 02/16/21 05:50 05:50 WBC 5.40 RBC 3.30 L Hgb 9.9 L Hct 30.5 L MCV 92.4 MCH 30.0 MCHC 32.5 RDW Std Deviation 51.3 H RDW Coeff of Chris 15.1 H Plt Count 152 MPV 11.1 H Immature Gran % (Auto) 0.2 Neut % (Auto) 79.5 Lymph % (Auto) 12.2 Bartholomew % (Auto) 7.2 Eos % (Auto) 0.9 Baso % (Auto) 0.0 Neut # (Auto) 4.29 Lymph # (Auto) 0.66 L Bartholomew # (Auto) 0.39 Eos # (Auto) 0.05 Baso # (Auto) 0.00 Immature Gran # (Auto) 0.01 Sodium 141 Potassium 3.7 Chloride 112 H Carbon Dioxide 23 Anion Gap 6.0 BUN 15 Creatinine 0.83 Est Cr Clr Drug Dosing 37.0 Est GFR ( Amer) 73.5 Est GFR (Non-Af Amer) 63.4 BUN/Creatinine Ratio 17.9 Glucose 91 Calcium 8.4 L Phosphorus 2.7 Magnesium 2.1 Total Bilirubin 0.9 AST 37 ALT 22 Alkaline Phosphatase 41 L C-Reactive Protein 7.53 H Total Protein 5.6 L Albumin 2.4 L Globulin 3.2 Albumin/Globulin Ratio 0.8 L Procalcitonin Urine Color Urine Appearance Urine pH Ur Specific D[place]el Urine Protein Urine Glucose (UA) Urine Ketones Urine Blood Urine Nitrite Urine Bilirubin Urine Urobilinogen Ur Leukocyte Esterase PG Care Time/CCT Total # of Minutes Spent Total Time Spent with Patient: Total time spent is greater than 50% in coordination of care (as documented) at patient's floor/unit and/or counseling p atient: Coding Level of Care Code 50060 Subseq Hosp Care Lvl 2 Diagnoses NSTEMI (non-ST elevated myocardial infarction) I21.4 Supraventricular tachycardia I47.1 Mitral regurgitation I34.0
--- NOTE | 2021-02-16 14:10 | Discharge Summary ---
Date of Service February 16, 2021 Admission HPI Per Admitting Provider 86-year-old female past medical history significant for SVT on metoprolol, hypertension, hyperlipidemia, GERD, hiatal hernia, anxiety, prediabetes presented to the ER for intermittent epigastric to left chest pain for the last 10 days that worsens with exertion. She does not report associated nausea or vomiting, diaphoresis with these events, but does endorse some breathlessness during them. In general she denies recent fevers, chills, urinary symptoms. She reports that in this 10-day time she would have this cramping sensation and shortness of breath at the end of her 100 foot walk from her front door to her mailbox. It would take her several minutes of resting before the symptoms would improve. At first she thought that the symptoms were a worsening of her GERD symptoms and so she increased her omeprazole to twice daily for the last 3 days. When this did not help she came to the ER for evaluation. In the ER patient was noted to be hypertensive to 160s/90s, otherwise hemodynamically stable. CBC revealed anemia with hemoglobin 11.7 with normocytic MCV, normal CMP, troponin 0.891. EKG notable for T wave depressions in inferior and lateral leads as compared to EKG in May 2019. COVID-19 gem ting negative. Chest x-ray without acute process. CTAP with cholelithiasis and small hiatal hernia. Admission Exam Per Admitting Provider Constitutional: WD/WN, vitals as above Eyes: PERRL, conjunctivae normal, anicteric sclerae ENMT: external ear and nose normal, oropharynx normal Neck: normal visual inspection Respiratory: normal respiratory effort, lungs clear to auscultation Cardiovascular: RRR, no murmur, no edema Gastrointestinal (Abdomen): Inspection/Auscultation: abdomen normal to inspection and normal bowel sounds Percussion/Palpation: + abdomen tender and abdomen soft (mild epigastric); no guarding Musculoskeletal: no cyanosis or clubbing, extremities motor strength 5/5 Skin: no rashes, warm and dry Neurologic: AAOx3, normal speech. Bilateral UE, LE, and face without sensory or motor deficits. Psychiatric: A+Ox3, euthymic affect Principal Diagnosis NSTEMI Discharge Exam General: A&O x3. Sitting in bed. Awake/alert. NAD. Cooperative. HEENT: Atraumatic, normocephalic. Pulm: CTAB A&P. -wheezes, -rales, -rhonchi. Symmetrical chest rise. No increase work of breathing. No respiratory distress. Cardiac: RRR, -mrg. Radial pulses intact and symmetrical. Abdominal: soft, non-tender, non-distended, BS x 4 Skin: warm, dry, no rash Discharge Data Allergies Allergy/AdvReac Type Severity Reaction Status Date / Time Iodinated Contrast Media Allergy Intermediate HIVES Verified 02/11/21 21:34 atorvastatin [From Lipitor] AdvReac Intermediate myalgia Verified 02/11/21 21:34 levofloxacin [From Levaquin] AdvReac Intermediate Anxiety Verified 02/11/21 21:34 pravastatin AdvReac Intermediate myalgia Verified 02/11/21 21:34 prednisone AdvReac Mild hyperactivi Verified 02/15/21 11:34 ty Consultations 02/11/21 22:53 ED Decision to Admit Stat 02/12/21 03:21 Consult Cardiology Routine Procedures Performed Operation Date: 02/12/21 13:00 Actual Procedures p Cath, Left with Cors and Vent - Steffen Banegas MD s Cineradiography w/Routine Exam - Steffen Banegas MD Operation Date: 02/13/21 13:00 Actual Procedures p Drug Eluting Stent SGl Vessel - Steffen Fierro MD Ordered Studies 02/11/21 21:21 CT abd pelvis wo con Urgent 02/12/21 13:49 CL Cath Imgs for PACS use only Routine 02/13/21 11:45 CL Cath Imgs for PACS use only Routine 02/15/21 10:02 CT head/brain wo con Stat Hospital Course (1) NSTEMI (non-ST elevated myocardial infarction): April Montes is an 86yo female with PMHx significant for SVT (on metoprolol), hypertension, hyperlipidemia, GERD, hiatal hernia, anxiety, prediabetes (A1c 5.7 on 02/12/2021) admitted for NSTEMI; found to have multi- vessel disease on cardiac catheterization and requires transfer for CABG. NSTEMI s/p JASPER to Left Circumflex Typical ACS symptoms. EKG with inferolateral ST depressions and T-wave inversions, Troponin peaked at 15.4. Multi-vessel disease per cardiac catheterization on 02/12 - TTE with EF 55-60%, mild apical posterior hypokinesis, and moderate MR - received high-dose Aspirin and nitro x1 in the ED, no chest pain currently - Troponin I peaked at 15.4 on 02/12 - JASPER x1 in LCx on 02/13, POD 3 - Cardiology on board - appreciate recs - continue DAPT for at least 1 year - continue Aspirin 81mg, Clopidogrel 75mg, Lopressor 25mg PO BID, Lisinopril 2.5mg PO QAM - statins contraindicated in this patient; had severe myalgias with multiple fat-soluble/water-soluble statins - EKG and nitro PRN for chest pain - PT/OT consulted - recommended acute rehab Acute Encephalopathy, resolved Progressively worsening confusion/disorientation for 2 days following PCIx2, with significant improvement over the last 24 hours. Suspect delirium due to medications (stopped Xanax and Melatonin yesterday; also patient received sedative medications for PCI x2 several days ago) as well as prolonged hospital stay. Infectious work-up and stroke work-up negative on 02/15. - CT head w/o contrast without stroke/hemorrhage - CXR with cardiomegaly and small bilateral pleural effusions - likely 2/2 NSTEMI and possible previous ACS events as well - CRP elevated at 4.94 but Procalcitonin negative, most likely due to NSTEMI - UA clean, blood cultures no growth after 24 hours - Avoid sedating meds as much as possible; frequent re-orientation per nursing - continue to hold home Xanax Chronic Medical history Hypertension: Continue metoprolol; continue low-dose lisinopril Hyperlipidemia: Has had intolerance (severe myalgias) to multiple fat-soluble and water-soluble statins. Given NSTEMI care should be given to medications such as Repatha. Defer to cardiology. Prediabetes: A1c 5.7 during this hospitalization. No intervention at this time. GERD, history of stomach ulcer: Given history of stomach ulcer and GERD will continue PPI twice daily while admitted. Anxiety: Continue as needed alprazolam. Code status: DNR/DNI FEN: Heart-healthy diet DVT prophylaxis: DAPT (2) Hyperlipidemia: (3) Hypertension: (4) Anxiety: (5) Gastroesophageal reflux disease: (6) Supraventricular tachycardia: (7) Prediabetes: Total Time Total Time Spent Total Time Spent (In Minutes): <30 Discharge Plan Discharge Items Patient Disposition: Transfer Inpatient Rehab Fac Reason For Visit: NSTEMI Discharge Diagnosis: NSTEMI Activity: Per Instructions section Non-emergency contact: Primary Care Provider and Acid Wash Operator Call non-emergency contact if: you have any medication questions and your symptoms worsen Follow-up/Referrals: Carlos Downey MD [Primary Care Provider] - (please schedule patient within 2 weeks) Diet: Heart Healthy Addtl Attending Provider Instructions: April Montes is an 86yo female with PMHx significant for SVT (on metoprolol), hypertension, hyperlipidemia, GERD, hiatal hernia, anxiety, prediabetes (A1c 5.7 on 02/12/2021) admitted for NSTEMI; found to have multi- vessel disease on cardiac catheterization and requires transfer for CABG. NSTEMI s/p JASPER to Left Circumflex Typical ACS symptoms. EKG with inferolateral ST depressions and T-wave inversions, Troponin peaked at 15.4. Multi-vessel disease per cardiac catheterization on 02/12 - TTE with EF 55-60%, mild apical posterior hypokinesis, and moderate MR - received high-dose Aspirin and nitro x1 in the ED, no chest pain currently - Troponin I peaked at 15.4 on 02/12 - JASPER x1 in LCx on 02/13, POD 3 - Cardiology on board - appreciate recs - continue DAPT for at least 1 year - continue Aspirin 81mg, Clopidogrel 75mg, Lopressor 25mg PO BID, Lisinopril 2.5mg PO QAM - statins contraindicated in this patient; had severe myalgias with multiple fat-soluble/water-soluble statins - EKG and nitro PRN for chest pain - PT/OT consulted - recommended acute rehab Acute Encephalopathy, resolved Progressively worsening confusion/disorientation for 2 days following PCIx2, with significant improvement over the last 24 hours. Suspect delirium due to medications (stopped Xanax and Melatonin yesterday; also patient received sedative medications for PCI x2 several days ago) as well as prolonged hospital stay. Infectious work-up and stroke work-up negative on 02/15. - CT head w/o contrast without stroke/hemorrhage - CXR with cardiomegaly and small bilateral pleural effusions - likely 2/2 NSTEMI and possible previous ACS events as well - CRP elevated at 4.94 but Procalcitonin negative, most likely due to NSTEMI - UA clean, blood cultures no growth after 24 hours - Avoid sedating meds as much as possible; frequent re-orientation per nursing - continue to hold home Xanax Chronic Medical history Hypertension: Continue metoprolol; continue low-dose lisinopril Hyperlipidemia: Has had intolerance (severe myalgias) to multiple fat-soluble and water-soluble statins. Given NSTEMI care should be given to medications such as Repatha. Defer to cardiology. Prediabetes: A1c 5.7 during this hospitalization. No intervention at this time. GERD, history of stomach ulcer: Given history of stomach ulcer and GERD will continue PPI twice daily while admitted. Anxiety: Continue as needed alprazolam. Code status: DNR/DNI FEN: Heart-healthy diet DVT prophylaxis: DAPT Pending Studies at Discharge: No Stand-Alone Forms: [place], Smoking Cessation Skilled Items Patient informed of condition?: Yes DNR: Yes Discharge Level of Care: Other Communicable Disease: No Discharge Prognosis: Stable Lines: None Urinary Catheter: No Medications and DC Order Prescriptions: New clopidogrel 75 mg tablet 75 mg PO DAILY Qty: 90 RF: 1 metoprolol tartrate 25 mg tablet 25 mg PO BID Qty: 60 RF: 2 lisinopril 2.5 mg tablet 2.5 mg PO DAILY Qty: 30 RF: 2 Continued multivitamin [Daily Multi-Vitamin] tablet 1 tab PO QAM RF: 0 ferrous sulfate 325 mg (65 mg iron) tablet 325 mg PO BID RF: 0 metoprolol tartrate 25 mg tablet 25 mg PO BID Qty: 60 RF: 5 Hold Instructions: weak feelings in the morning loratadine [Claritin] 10 mg tablet 10 mg PO DAILY RF: 0 aspirin 81 mg Tablet,Chewable 81 mg PO QAM RF: 0 omeprazole 20 mg capsule,delayed release(DR/EC) 20 mg PO BID RF: 0 fluticasone propionate 50 mcg/actuation spray,suspension 2 spray INTNAS DAILY RF: 0 vitamin B complex Tablet 1 tab PO DAILY RF: 0 PreserVision AREDS-2 250-90-40-1 mg Capsule 1 tab PO BID RF: 0 Discontinued alprazolam 0.25 mg tablet 0.25 mg PO DAILY PRN (Reason: anxiety) Qty: 30 RF: 0 Discharge Orders: Discharge Order (Routine); Ordered 02/16/21 Ordered By: Sea Stark Admission Data Admit Date/Time: 02/11/21 23:55 Attending Provider: Tex Starr Admit Provider: Camden Ferreira Primary Care Provider: Carlos Downey Other Providers: Beena Vela ; Steffen Banegas ; Dorothy Louis ; [facility] Supervising Physician Co-Signing Physician Notes I personally examined the patient and verified all engle points of history and exam, discussed case, and agree with decision making with Dr Stark Feeling much better. Much more alert and lucid, notes that she is talked with several family members who are pleased that she is sounding much more like herself now. Vitals noted, in general she is awake and alert pleasant no distress. HEENT n ormocephalic atraumatic mucous membranes moist. Breathing unlabored no accessory muscle use good effort. Skin shows no rashes no pallor or icterus. Encephalopathycleared quickly, probably environmentally induced/hospital delirium, fortunately improved nicely. NSTEMInow status post drug-eluting stents to circumflexmed management and supportive care Dispounfortunately appears to need rehabfortunately this was able to be set up for today. Stable for discharge. Resident Activity Tracking Resident Involvement: Resident Care Provided Care Provided: Adult Hospital Medicine
--- NOTE | 2021-02-16 18:31 | Billing Data ---
Date of Service February 16, 2021 Coding Level of Care Code D/C DAY MANAGEMENT <30 MINS
== END 2021-02-16 17:19 | DRG 247 ==
LOC: ED 19:33 → EDINP 23:55 → SUATTDRO 23:55 → 2S 02-12 02:41

== ENCOUNTER 2022-10-14 07:35 | Inpatient (IN) ==
--- NOTE | 2022-10-14 07:58 | Emergency Department Note ---
Impression & Plan Fatigue, Anemia, Lightheadedness ED Provider Note ED Provider Note NAME: KONSTANTIN GRADY AGE:87 SEX: Female : 1935 ARRIVES VIA: EMS INFORMANT: Patient ED PROVIDER(s): Delia Jacob DO CHIEF COMPLAINT: Fatigue HPI: This is an 87-year-old female presents emergency department due to concern for not feeling well since her blood pressure medication was changed 2 weeks ago. Patient states she saw Dr. Monte of cardiology 2 weeks ago and her lisinopril was doubled. She states since that time she had not been feeling well. She states she called a couple of days ago to tell them she did not feel well and they told her she could decrease it back to 1 pill/day again. She states she has done that now for a few days and has not noted any improvement. Patient states this morning she felt very weak and slightly off balance, very fatigued, and was concerned and called 911. She denies any accompanying he adaches, chest pain, palpitations, trouble breathing, leg swelling, change in urine or stools. Patient states she feels her appetite has been normal and she has been drinking enough water. No other recent change in medications. Patient states she follows with cardiology because she had a heart attack 2 years ago. Patient states she fell 4 weeks ago, however her granddaughter who is a PA came and checked her out and told her she was okay. PAST MEDICAL HISTORY:See Below PAST SURGICAL HISTORY:See Below FAMILY HISTORY:See Below SOCIAL HISTORY:See Below HOME MEDICATIONS:See Below ALLERGIES:See Below VITALS:See Below PHYSICAL EXAMINATION: GENERAL: alert, well appearing, well nourished, no distress, non-toxic EYE EXAM: normal conjunctiva, PERRL and EOM's grossly intact OROPHARYNX: no exudate, no erythema, lips, buccal mucosa, and tongue normal and mucous membranes are moist NECK: supple, no nuchal rigidity, no adenopathy, non-tender LUNGS: Clear to auscultation. Normal chest wall mechanics, no w/r/r HEART: no murmurs, S1 normal and S2 normal ABDOMEN: abdomen soft, non-tender, normo-active bowel sounds, no masses, no rebound or guarding. BACK: Back is symmetrical on inspection and there is no deformity, no midline tenderness, no CVA tenderness. SKIN: no rashes, petechiae, orbruising UPPER EXTREMITIES: upper extremities are grossly normal. FROM, nml pulses b/l. LOWER EXTREMITIES: No pitting edema. FROM, nml pulses b/l. NEURO EXAM: Normal sensorium, cranial nerves II-XII grossly intact, normal speech, no facial droop,nogross weakness of arms, no gross weakness of legs. Gross sensation intact. No ataxia. Vital Signs: reviewed and remarkable Differential Diagnosis: Medication ADR, HOLLY, electrolyte abnormality, anxiety, dehydration, ICH, CVA, hypertensive urgency, as well as others were considered MEDICAL DECISION MAKING: This is an 87-year-old female who presents to the emergency room due to concern for increased fatigue, lightheadedness, difficulty walking and concern for possible adverse reaction to the blood pressure med. Patient afebrile and vital signs stable. Labs drawn and sent, IV established, EKG and CXR performed and interpreted at bedside, and patient placed on telemetry. Patient well-appearing here, labs and imaging reassuring, vital signs stable. Patient initially hypertensive but did not take in her normal blood pressure meds in the morning. She was given blood pressure meds here and blood pressure improved. I did discuss her anemia with hematology who is she is seen before for iron infusions. We did try ambulatory trial here and patient did very poorly. Concern by myself as well as family for patient's safety as she lives home alone and does use 2 antiplatelet medications. Patient states she felt both dyspneic and very weak with trying to ambulate. Given she had already returned her prior medication changed to her normal dosing, I am less suspicious this is related to an adverse reaction to her blood pressure meds. This may more likely be related to symptomatic anemia. Case discussed with hospitalist for additional evaluation and management. Consultation(s): 1224: Discussed with Dr. Schneider. If patient is safe to go home, they will try to get her in for a sooner appointment for another iron infusion. 1411: Discussed with Dr. Bello, [facility] hospitalist team. ER Treatment Provided: See below 1255: Patient unable to ambulate here independently. Patient became pale, appeared dyspneic, and reported feeling weak and short of breath. Diagnostics Interpreted By Me: -ECG: Normal sinus at 79, normal axis, normal intervals, nonspecific ST/T wave changes, baseline artifact noted -Cardiac Monitoring: An order was placed for continuous cardiac monitoring. The monitor shows a rate of 88 with normal sinus rhythm. -Laboratory studies: As stated above and show below. -Imaging studies: X-ray Chest: A single view study of the chest was reviewed and was negative for cardiomegaly, focal infiltrate, effusion, pulmonary edema, or wide mediastinum. Triage Nursing Note Reviewed Prior/Outside Records Reviewed Past Med/Surg History Medical History Acute epigastric pain Anxiety Arthritis Gastroesophageal reflux disease Hiatal hernia Hyperlipidemia Hypertension Prediabetes Per records Supraventricular tachycardia Metoprolol bid. follows with Dr. Downey (PCP) Surgical History History of cataract surgery History of D&C Family History Brother Diabetes Heart disease Cardiac disorder Father Liver cancer Sister Cardiac disorder Denies family history of Ovarian cancer Prostate cancer Myocardial infarction Breast cancer Colorectal cancer Social History Smoking Status: Never smoker Second Hand Exposure: Yes (hx as a child); Do You Dip or Chew Tobacco: No; Hx Alcohol Use: No Hx Substance Use: No Preferred Language: Turkish Communication Ability: Effective Visual Impairment: No Limitations Hearing Ability: Normal Acetylene Burner Required: No Beliefs That Will Affect Care: None marital status: / marital status details: Lives alone Current Living Situation: Alone current occupational status: retired Feels Safe at Home: Yes Childhood Exposure to Second-Hand Smoke: Yes Diet: other Diet Comment: healthy caffeine: Yes during the past year weight has: remained stable Dental Care, Regularly: Yes Physical Activity Frequency: Does not Exercise Seatbelt Use: always Sunscreen Use: No Assistive Devices: None Allergies Allergies Allergy/AdvReac Type Severity Reaction Status Date / Time haloperidol [From Haldol] Allergy Severe Verified 09/27/22 09:28 Iodinated Contrast Media Allergy Intermediate HIVES Verified 09/27/22 09:28 atorvastatin [From Lipitor] AdvReac Intermediate myalgia Verified 09/27/22 09:28 levofloxacin [From Levaquin] AdvReac Intermediate Anxiety Verified 09/27/22 09: 28 losartan AdvReac Intermediate nervous / Verified 09/27/22 09:28 hanane horses and insomnia pravastatin AdvReac Intermediate myalgia Verified 09/27/22 09:28 prednisone AdvReac Mild hyperactivi Verified 09/27/22 09:28 ty Home Meds Home Medications Medication Instructions Recorded Confirmed multivitamin (Daily Multi-Vitamin 1 tab PO QAM 05/13/19 10/14/22 tablet) loratadine 10 mg tablet (Claritin) 10 mg PO DAILY 05/25/19 10/14/22 aspirin 81 mg chewable tablet 81 mg PO QAM 06/04/19 10/14/22 mecobalamin (vitamin B12) 1,000 1,000 mcg PO DAILY 09/27/22 10/14/22 mcg chewable tablet Previous Rx's Medication Instructions Recorded clopidogrel 75 mg tablet 75 mg PO DAILY #90 tabs 12/15/21 famotidine 20 mg tablet 20 mg PO DAILY #90 tabs 08/03/22 fluticasone propionate 50 2 spray intranasal DAILY #16 grams 08/28/22 mcg/actuation nasal spray,suspension lisinopril 2.5 mg tablet 5 mg PO DAILY #90 tabs 09/27/22 metoprolol tartrate 25 mg tablet 37.5 mg PO BID #270 tabs 10/14/22 Results & Data (ED) Vital Signs Vital Signs - 24 hr 10/14/22 07:43 10/14/22 07:53 10/14/22 08:22 Temperature 37.1 C Temperature Source Oral Pulse Rate 86 86 Pulse Rate [Right Finger] 68 Respiratory Rate 20 16 20 Respiratory Effort / Characteristics Non-Labored Non-Labored Respiratory Depth Normal Normal Respiratory Pattern Blood Pressure 207/92 H Blood Pressure [Right Arm] 172/75 H Blood Pressure Mean 130 Blood Pressure Mean [Right Arm] 107 Pulse Oximetry 97 97 96 Oxygen Delivery Method Room Air Room Air Room Air Sepsis Recent Fever Within 48 Hours No Sepsis New/Unexplained Change in Mental Status N/A Sepsis Action Taken by Nursing No Action Required 10/14/22 09:14 10/14/22 09:18 10/14/22 10:08 Temperature Temperature Source Pulse Rate 71 Pulse Rate [Right Finger] 70 86 Respiratory Rate 20 20 Respiratory Effort / Characteristics Non-Labored Non-Labored Respiratory Depth Normal Normal Respiratory Pattern Blood Pressure Blood Pressure [Right Arm] 176/72 H 139/74 Blood Pressure Mean Blood Pressure Mean [Right Arm] 106 95 Pulse Oximetry 95 98 Oxygen Delivery Method Room Air Room Air Sepsis Recent Fever Within 48 Hours Sepsis New/Unexplained Change in Mental Status Sepsis Action Taken by Nursing 10/14/22 10:09 10/14/22 11:46 10/14/22 13:16 Temperature Temperature Source Pulse Rate Pulse Rate [Right Finger] 82 82 Respiratory Rate 20 14 Respiratory Effort / Characteristics Non-Labored Non-Labored Respiratory Depth Normal Normal Respiratory Pattern Blood Pressure Blood Pressure [Right Arm] 139/74 185/108 H Blood Pressure Mean Blood Pressure Mean [Right Arm] 95 133 Pulse Oximetry 98 99 Oxygen Delivery Method Room Air Room Air Room Air Sepsis Recent Fever Within 48 Hours Sepsis New/Unexplained Change in Mental Status Sepsis Action Taken by Nursing 10/14/22 13:16 10/14/22 13:40 Temperature Temperature Source Pulse Rate 71 Pulse Rate [Right Finger] 75 Respiratory Rate 18 Respiratory Effort / Characteristics Non-Labored Respiratory Depth Normal Respiratory Pattern Regular Blood Pressure Blood Pressure [Right Arm] 128/60 Blood Pressure Mean Blood Pressure Mean [Right Arm] 82 Pulse Oximetry 98 Oxygen Delivery Method Room Air Sepsis Recent Fever Within 48 Hours Sepsis New/Unexplained Change in Mental Status Sepsis Action Taken by Nursing Laboratory Data 10/14/22 07:46 10/14/22 07:46 Lab Results 10/14/22 10/14/22 10/14/22 Range/Units 07:46 07:46 07:46 WBC 5.55 (4.8-10.8) K/ul RBC 3.15 L (4.20-5.40) M/uL Hgb 9.8 L (12.0-16.0) g/dl Hct 30.2 L (37.0-47.0) % MCV 95.9 (80.0-100.0) fL MCH 31.1 (25.0-34.0) pg MCHC 32.5 (32.0-36.0) g/dL RDW Std Deviation 47.0 H (36.4-46.3) fL RDW Coeff of Chris 13.4 (11.5-14.5) % Plt Count 222 (130-400) K/uL MPV 11.1 (9.4-12.4) fL Immature Gran % (Auto) 0.2 % Neut % (Auto) 51.8 % Lymph % (Auto) 38.2 % Dare % (Auto) 7.0 % Eos % (Auto) 2.3 % Baso % (Auto) 0.5 % Neut # (Auto) 2.87 (1.40-6.50) K/uL Lymph # (Auto) 2.12 (1.2-3.4) K/uL Dare # (Auto) 0.39 (0.11-0.59) K/uL Eos # (Auto) 0.13 (0-0.50) K/uL Baso # (Auto) 0.03 (0-0.2) K/uL Immature Gran # (Auto) 0.01 (0.01-0.20) K/uL Sodium 141 (136-145) mmol/L Potassium 4.4 (3.5-5.1) mmol/L Chloride 106 (98-107) mmol/L Carbon Dioxide 30 (21-32) mmol/L Anion Gap 5 (3-11) BUN 26 H (6-23) mg/dl Creatinine 1.23 H (0.6-1.2) mg/dl Est Cr Clr Drug Dosing 24.6 ml/min Est GFR ( Amer) 45.4 ml/min Est GFR (Non-Af Amer) 39.1 ml/min BUN/Creatinine Ratio 21.1 H (10-20) Glucose 105 H (70-99(Fasting)) mg/dl Calcium 10.0 (8.6-10.3) mg/dl Magnesium 2.0 (1.7-2.4) mg/dl Total Bilirubin 0.5 (0.2-1.0) mg/dl AST 20 (13-39) U/L ALT 11 (7-52) U/L Alkaline Phosphatase 47 (34-104) U/L Troponin I High Sens 28.7 H (0-14) pg/ml Total Protein 6.9 (6.0-8.3) gm/dl Albumin 4.1 (3.4-5.0) gm/dl Globulin 2.8 (2.5-4.0) gm/dl Albumin/Globulin Ratio 1.5 (0.9-2) Lipase 61 (11-82) U/L TSH 8.465 H (0.300-4.500) uIu/ml Free T4 0.84 (0.61-1.60) ng/dl Urine Color Urine Appearance (Clear) Urine pH (4.5-7.5) Ur Specific [place] (1.000-1.030) Urine Protein (Negative) Urine Glucose (UA) (Negative) Urine Ketones (Negative) Urine Blood (Negative) Urine Nitrite (Negative) Urine Bilirubin (Negative) Urine Urobilinogen (Negative) Ur Leukocyte Esterase (Negative) Urine WBC (Auto) (0-5) /hpf Urine RBC (Auto) (0-4) /hpf U Hyaline Cast (Auto) (0-5) /lpf U Epithel Cells (Auto) (0-5) /lpf Urine Bacteria (Auto) (Negative) Lyme Disease IgG Ab (Negative) Lyme Disease IgM Ab (Negative) SARS-CoV-2, RNA, NAAT (NEGATIVE) 10/14/22 10/14/22 10/14/22 Range/Units 07:46 10:30 10:36 WBC (4.8-10.8) K/ul RBC (4.20-5.40) M/uL Hgb (12.0-16.0) g/dl Hct (37.0-47.0) % MCV (80.0-100.0) fL MCH (25.0-34.0) pg MCHC (32.0-36.0) g/dL RDW Std Deviation (36.4-46.3) fL RDW Coeff of Chris (11.5-14.5) % Plt Count (130-400) K/uL MPV (9.4-12.4) fL Immature Gran % (Auto) % Neut % (Auto) % Lymph % (Auto) % Dare % (Auto) % Eos % (Auto) % Baso % (Auto) % Neut # (Auto) (1.40-6.50) K/uL Lymph # (Auto) (1.2-3.4) K/uL Dare # (Auto) (0.11-0.59) K/uL Eos # (Auto) (0-0.50) K/uL Baso # (Auto) (0-0.2) K/uL Immature Gran # (Auto) (0.01-0.20) K/uL Sodium (136-145) mmol/L Potassium (3.5-5.1) mmol/L Chloride (98-107) mmol/L Carbon Dioxide (21-32) mmol/L Anion Gap (3-11) BUN (6-23) mg/dl Creatinine (0.6-1.2) mg/dl Est Cr Clr Drug Dosing ml/min Est GFR ( Amer) ml/min Est GFR (Non-Af Amer) ml/min BUN/Creatinine Ratio (10-20) Glucose (70-99(Fasting)) mg/dl Calcium (8.6-10.3) mg/dl Magnesium (1.7-2.4) mg/dl Total Bilirubin (0.2-1.0) mg/dl AST (13-39) U/L ALT (7-52) U/L Alkaline Phosphatase (34-104) U/L Troponin I High Sens 28.8 H (0-14) pg/ml Total Protein (6.0-8.3) gm/dl Albumin (3.4-5.0) gm/dl Globulin (2.5-4.0) gm/dl Albumin/Globulin Ratio (0.9-2) Lipase (11-82) U/L TSH (0.300-4.500) uIu/ml Free T4 (0.61-1.60) ng/dl Urine Color Yellow Urine Appearance Clear (Clear) Urine pH 6.5 (4.5-7.5) Ur Specific [place] 1.009 (1.000-1.030) Urine Protein Negative (Negative) Urine Glucose (UA) Negative (Negative) Urine Ketones Negative (Negative) Urine Blood Negative (Negative) Urine Nitrite Negative (Negative) Urine Bilirubin Negative (Negative) Urine Urobilinogen Negative (Negative) Ur Leukocyte Esterase 1+ H (Negative) Urine WBC (Auto) 1-5 (0-5) /hpf Urine RBC (Auto) 0-4 (0-4) /hpf U Hyaline Cast (Auto) 1-5 (0-5) /lpf U Epithel Cells (Auto) 20-30 H (0-5) /lpf Urine Bacteria (Auto) Negative (Negative) Lyme Disease IgG Ab Negative (Negative) Lyme Disease IgM Ab Negative (Negative) SARS-CoV-2, RNA, NAAT (NEGATIVE) 10/14/22 Range/Units 14:05 WBC (4.8-10.8) K/ul RBC (4.20-5.40) M/uL Hgb (12.0-16.0) g/dl Hct (37.0-47.0) % MCV (80.0-100.0) fL MCH (25.0-34.0) pg MCHC (32.0-36.0) g/dL RDW Std Deviation (36.4-46.3) fL RDW Coeff of Chris (11.5-14.5) % Plt Count (130-400) K/uL MPV (9.4-12.4) fL Immature Gran % (Auto) % Neut % (Auto) % Lymph % (Auto) % Dare % (Auto) % Eos % (Auto) % Baso % (Auto) % Neut # (Auto) (1.40-6.50) K/uL Lymph # (Auto) (1.2-3.4) K/uL Dare # (Auto) (0.11-0.59) K/uL Eos # (Auto) (0-0.50) K/uL Baso # (Auto) (0-0.2) K/uL Immature Gran # (Auto) (0.01-0.20) K/uL Sodium (136-145) mmol/L Potassium (3.5-5.1) mmol/L Chloride (98-107) mmol/L Carbon Dioxide (21-32) mmol/L Anion Gap (3-11) BUN (6-23) mg/dl Creatinine (0.6-1.2) mg/dl Est Cr Clr Drug Dosing ml/min Est GFR ( Amer) ml/min Est GFR (Non-Af Amer) ml/min BUN/Creatinine Ratio (10-20) Glucose (70-99(Fasting)) mg/dl Calcium (8.6-10.3) mg/dl Magnesium (1.7-2.4) mg/dl Total Bilirubin (0.2-1.0) mg/dl AST (13-39) U/L ALT (7-52) U/L Alkaline Phosphatase (34-104) U/L Troponin I High Sens (0-14) pg/ml Total Protein (6.0-8.3) gm/dl Albumin (3.4-5.0) gm/dl Globulin (2.5-4.0) gm/dl Albumin/Globulin Ratio (0.9-2) Lipase (11-82) U/L TSH (0.300-4.500) uIu/ml Free T4 (0.61-1.60) ng/dl Urine Color Urine Appearance (Clear) Urine pH (4.5-7.5) Ur Specific [place] (1.000-1.030) Urine Protein (Negative) Urine Glucose (UA) (Negative) Urine Ketones (Negative) Urine Blood (Negative) Urine Nitrite (Negative) Urine Bilirubin (Negative) Urine Urobilinogen (Negative) Ur Leukocyte Esterase (Negative) Urine WBC (Auto) (0-5) /hpf Urine RBC (Auto) (0-4) /hpf U Hyaline Cast (Auto) (0-5) /lpf U Epithel Cells (Auto) (0-5) /lpf Urine Bacteria (Auto) (Negative) Lyme Disease IgG Ab (Negative) Lyme Disease IgM Ab (Negative) SARS-CoV-2, RNA, NAAT NEGATIVE (NEGATIVE) Administered Medications Sodium Chloride (Nss 1000ml) 1,000 mls @ 125 mls/hr IV .Q8H [facility] Stop: 11/13/22 07:59 Last Admin: 10/14/22 09:19 Dose: 125 mls/hr Documented By: NRB Discontinued Medications Lisinopril (Lisinopril 5 Mg Tab) 2.5 mg PO NOW ONE Stop: 10/14/22 12:15 Last Admin: 10/14/22 12:28 Dose: 2.5 mg Documented By: KORI Metoprolol Tartrate (Metoprolol Tartrate 25 Mg Tab) 25 mg PO NOW STA Stop: 10/14/22 12:15 Last Admin: 10/14/22 12:28 Dose: 25 mg Documented By: KORI Imaging Data Radiologist's Impression: Chest X-Ray 10/14/22 07:58 XR chest 1V not portable HISTORY: 87 years-old Female fatigue,htn acute cough with fatigue and hypertension COMPARISON: 03/01/2022 TECHNIQUE: AP view of the chest FINDINGS: Cardiac silhouette is enlarged. No pneumothorax, pleural effusion, airspace consolidation or pulmonary edema. Degenerative changes of the shoulders and spine. IMPRESSION: Cardiomegaly without acute process. ACT 112: Negative or not required by law. The above report was generated using voice recognition software. It may contain grammatical, syntax or spelling errors. Electronically signed by: Charles Roy M.D. 10/14/2022 9:[address] 10/14/22 07:58 CT head/brain wo con CLINICAL HISTORY: 87 years-old Female with lightheaded. Acute dizziness with lightheadedness TECHNIQUE: Multiple axial CT images of the head were obtained without contrast. A dose lowering technique was utilized adhering to the principles of ALARA. CT DOSE: 625.80 mGy.cm COMPARISON: 02/15/2021 FINDINGS: No acute intracranial hemorrhage, midline shift, intracranial mass, hydrocephalus, territorial ischemia or abnormal extra-axial collection. Involutional changes with chronic microvascular ischemic disease. Cerebrovascular calcifications. The calvarium is intact. Prior bilateral lens repair. The paranasal sinuses, mastoid air cells, and middle ear cavities are clear. IMPRESSION: No acute intracranial abnormality. ACT 112: Negative or not required by law. The above report was generated using voice recognition software. It may contain grammatical, syntax or spelling errors. Electronically signed by: Cahrles Roy M.D. 10/14/2022 8:57 AM Discharge Plan Visit Data Chief Complaint: Illness ED Provider: Delia Jacob Discharge Problem: Fatigue, Anemia, Lightheadedness Forms Stand Alone Forms: [facility] [place] [employer] Prescriptions Prescriptions: No Action multivitamin [Daily Multi-Vitamin] tablet 1 tab PO QAM clopidogrel 75 mg tablet 75 mg PO DAILY Qty: 90 3RF famotidine 20 mg tablet 20 mg PO DAILY Qty: 90 3RF Rx Instructions: Per pt she takes twice daily. fluticasone propionate 50 mcg/actuation spray,suspension 2 spray INTNAS DAILY Qty: 16 5RF metoprolol tartrate 25 mg tablet 37.5 mg PO BID Qty: 270 3RF Rx Instructions: Per pt and daughter she takes 1 tab am and 1 and 1/2 tablets at night. mecobalamin (vitamin B12) 1,000 mcg tablet,chewable 1,000 mcg PO DAILY lisinopril 2.5 mg tablet 5 mg PO DAILY Qty: 90 3RF Rx Instructions: Per pt and daughter, she takes just one 2.5 tablet in the mornings. loratadine [Claritin] 10 mg tablet 10 mg PO DAILY aspirin 81 mg Tablet,Chewable 81 mg PO QAM Referrals Referrals: Carlos Downey MD [Physician] -
[2022-10-14 08:22] LABS: Basophils # (auto) 0.03 K/uL (0-0.2); Basophils % (auto) 0.5 %; Eosinophils # (auto) 0.13 K/uL (0-0.50); Eosinophils % (auto) 2.3 %; Hematocrit (blood only) 30.2 % (37.0-47.0); Hemoglobin 9.8 g/dl (12.0-16.0); Immature Granulocytes # (auto) 0.01 K/uL (0.01-0.20); Immature Granulocytes % (auto) 0.2 %; Lymphocytes # (auto) 2.12 K/uL (1.2-3.4); Lymphocytes % (auto) 38.2 %; Mean Corpuscular Hemoglobin 31.1 pg (25.0-34.0); Mean Corpuscular Hgb Conc 32.5 g/dL (32.0-36.0); Mean Corpuscular Volume 95.9 fL (80.0-100.0); Mean Platelet Volume 11.1 fL (9.4-12.4); Monocytes # (auto) 0.39 K/uL (0.11-0.59); Neutrophils # (auto) 2.87 K/uL (1.40-6.50); Neutrophils % (auto) 51.8 %; Platelet Count 222 K/uL (130-400); RDW Coefficient of Variation 13.4 % (11.5-14.5); Red Blood Count 3.15 M/uL (4.20-5.40); White Blood Count 5.55 K/ul (4.8-10.8)
[2022-10-14 08:41] LABS: Troponin I High Sensitivity 28.7 pg/ml (0-14)
[2022-10-14 08:44] LABS: Albumin Level 4.1 gm/dl (3.4-5.0); Bilirubin,Total 0.5 mg/dl (0.2-1.0); Potassium 4.4 mmol/L (3.5-5.1)
[2022-10-14 08:50] LABS: Albumin Globulin Ratio 1.5 (0.9-2); BUN Creatinine Ratio 21.1 (10-20); Creatinine Clr Calc Pharmacy 24.6 ml/min; Est GFR (African American) 45.4 ml/min; Est GFR (Non-African American) 39.1 ml/min; Globulin 2.8 gm/dl (2.5-4.0); Total Protein 6.9 gm/dl (6.0-8.3)
[2022-10-14 08:53] LABS: Lyme Ab IgG w/WB Rflx Negative (Negative); Lyme Ab IgM w/WB Rflx Negative (Negative)
--- NOTE | 2022-10-14 09:00 | CT Scan Report ---
CT head/brain wo con CLINICAL HISTORY: 87 years-old Female with lightheaded. Acute dizziness with lightheadedness TECHNIQUE: Multiple axial CT images of the head were obtained without contrast. A dose lowering tech nique was utilized adhering to the principles of ALARA. CT DOSE: 625.80 mGy.cm COMPARISON: 02/15/2021 FINDINGS: No acute intracranial hemorrhage, midline shift, intracranial mass, hydrocephalus, territorial ischem ia or abnormal extra-axial collection. Involutional changes with chronic microvascular ischemic disea se. Cerebrovascular calcifications. The calvarium is intact. Prior bilateral lens repair. The paranasal sinuses, mastoid air cells, and m iddle ear cavities are clear. IMPRESSION: No acute intracranial abnormality. ACT 112: Negative or not required by law. The above report was generated using voice recognition software. It may contain grammatical, syntax o r spelling errors. Electronically signed by: Charles Roy M.D. 10/14/2022 8:57 AM
--- NOTE | 2022-10-14 09:15 | XRay Report ---
XR chest 1V not portable HISTORY: 87 years-old Female fatigue,htn acute cough with fatigue and hypertension COMPARISON: 03/01/2022 TECHNIQUE: AP view of the chest FINDINGS: Cardiac silhouette is enlarged. No pneumothorax, pleural effusion, airspace consolidation or pulmonar y edema. Degenerative changes of the shoulders and spine. IMPRESSION: Cardiomegaly without acute process. ACT 112: Negative or not required by law. The above report was generated using voice recognition software. It may contain grammatical, syntax o r spelling errors. Electronically signed by: Charles Roy M.D. 10/14/2022 9:14 AM
[2022-10-14] MEDS: SODIUM CHLORIDE 0.9% 1000ML 1,000 ML IV SCH ×2 (09:19→17:56)
[2022-10-14 10:06] LABS: Thyroid Stimulating Hormone 8.465 uIu/ml (0.300-4.500)
[2022-10-14 10:48] LABS: Appearance Urine Clear (Clear); Bacteria Urine Automated Negative (Negative); Bilirubin Urine Negative (Negative); Blood Urine Negative (Negative); Color Urine Yellow; Epithelial Cell Urine Auto 20-30 /lpf (0-5); Glucose Urine UA Negative (Negative); Ketones Urine Negative (Negative); Leukocyte Esterase Urine 1+ (Negative); Nitrite Urine Negative (Negative); Protein Urine Negative (Negative); RBC Urine Automated 0-4 /hpf (0-4); Specific Gravity Urine 1.009 (1.000-1.030); Urobilinogen Urine Negative (Negative); pH Urine 6.5 (4.5-7.5)
[2022-10-14 10:48] LABS: T4 Free Thyroxine 0.84 ng/dl (0.61-1.60)
[2022-10-14] MEDS ORDERED: METOPROLOL TARTRATE 25 MG TAB PO STA (12:14)
[2022-10-14] MEDS ORDERED: lisinopril 5 MG TAB PO ONE (12:14)
--- NOTE | 2022-10-14 14:02 | History & Physical Report ---
Date of Service October 14, 2022 Assessment & Plan (1) Weakness: Plan: Weakness, acute on chronic end-stage Suspect multifactorial with acute on chronic anemia,? Subclinical hypothyroidism, and possibly orthostasis related to antihypertensive treatment Patient has had lightheadedness and dizziness related to hemoglobin less than 10 previously Treatment of each otherwise noted PT/OT Acute on Chronic Anemia, symptomatic - With hx of RENEE and ?AOCD. - Refused colonoscopies, although denies hx of melena/GIB - Iron studies pending. If ferritin less than 30/reduced transferrin saturation we will treat with Venofer while inpatient. If ferritin is normal and picture fits more of that of anemia of chronic disease then we will treat with Epogen. Discussed above with oncology, agree with plan of care. May formally consult if any complications/concerns develop, will defer this for now B12/folic acid levels pending No indication for transfusion at this time, hemodynamically stable Hypertension, chronic with multiple adjustments prior to admission Patient with labile hypertension with concern for HI/CVA. Normotensive on admit Continue home medications, lisinopril continued at 2.5 mg dose. Defer metoprolol dose reduction given history of SVT in the past Orthostatics pending, her blood pressure at bedside is 120/1-teens while on lisinopril 2.5/metoprolol. ? Subclinical hypothyroidism, acute/new TSH 8.4, free T4 low normal 0.84 Patient does endorse that she is frequently very cold and with poor energy, although this is in the setting of? Anemia/antihypertensive adjustments Discussed her/benefits of low-dose thyroid repletion. Discussed that over repletion is at risk for provoking tachyarrhythmias, given symptoms and subclinical findings we will trial a very low-dose of thyroid Hyperlipidemia, chronic Following up for PCSK9 as outpatient CAD, history of NSTEMI, chronic, stable History of JASPER x1 to LCx 02/2021. EF at that time 55 to 60%. Hospitalization was complicated by delirium in the setting of melatonin/Xanax use which improved with these being held On DAPT for 2 years and then remain on aspirin 81 mg daily per cardiology Titration of lisinopril/metoprolol as noted Patient has tried 3 statins, refuses additional statin medications. Following up for PCSK9 as outpatient No chest pain, troponin is slightly elevated with minimal MRIs on repeat will trend overnight and follow on medical telemetry MGUS, chronic, stable Stable, follows as outpatient. No acute intervention recommended at this time History of SVT, without recurrence on admission Suspected in the setting of hypothyroidism in the past Continue on telemetry Continue metoprolol as noted DVT prophylaxis: SCDs in the setting of anemia Disposition: Medical/telemetry while troponin being trended Diet: Heart healthy CODE STATUS: Full code (2) CAD (coronary artery disease): (3) Hyperlipidemia: (4) Hypertension: (5) Supraventricular tachycardia: (6) PSVT (paroxysmal supraventricular tachycardia): History of Present Illness Primary Care Provider: Seema Sweeney MD April is an 87-year-old female with past medical history of NSTEMI, HTN, anemia, and weakness She presents for general unwellness after increasing her lisinopril 2 weeks ago, she did call her butadiene convertor operator office several days ago and decrease this to 1 pill/day. This morning she felt particularly weak, with difficulty balancing and called 911 for transport to the ER. Creatinine baseline is approximately 1.2, admitting creatinine is 1.23 with slightly increased ratio No leukocytosis Sodium, potassium are normal High-sensitivity troponin 28.7, repeat 28.8. Chronically elevated last 02/2022 TSH elevated 8.4, free T40.84 UA is not infected appearing Lyme and negative CThead: No acute findings CXR: Cardiomegaly, no acute consolidation/edema/effusion April is seen at the bedside with family present. She has felt progressively weak and initially thought this was due to blood pressure medicines, but notes even going back to her regimen which has been stable for years she has been weak and had 1 fall to her knees from global fatigue/weakness, although denies focal weakness and syncope at that time Has been seen by her heart doctor for hx of NSTEMI and HTN. Her BP is very high intermittently (she think she gets white coat syndrome). 3 weeks ago her BP/Metoprolol was increased, but she started to have trouble with fatigue and energy. +lightheadedness. Has had some sweats with her lightheadedness. Happens daily, mostly in the morning. She talked to her cardiology office nurse and decreased lisinopril back to 2.5mg daily. Taking metoprolol 25mg AM 37.5mg in the evening. Some cramps last night no chest pain or chest pressure Has felt similarly with low iron before. Denies bleeding. No melena/BRPR Medical History: Reviewed Medications: Reviewed. Did not take AM medicines, only took medicines Surgical History: Reviewed Family history: Reviewed Allergies: Reviewed Social History: No tobacco or ETOH Code Status: Full Code Allergies Allergy/AdvReac Type Severity Reaction Status Date / Time haloperidol [From Haldol] Allergy Severe Verified 09/27/22 09:28 Iodinated Contrast Media Allergy Intermediate HIVES Verified 09/27/22 09:28 atorvastatin [From Lipitor] AdvReac Intermediate myalgia Verified 09/27/22 09:28 levofloxacin [From Levaquin] AdvReac Intermediate Anxiety Verified 09/27/22 09:28 losartan AdvReac Intermediate nervous / Verified 09/27/22 09:28 hanane horses and insomnia pravastatin AdvReac Intermediate myalgia Verified 09/27/22 09:28 prednisone AdvReac Mild hyperactivi Verified 09/27/22 09:28 ty Home Medications Medication Instructions Recorded Confirmed Type multivitamin (Daily Multi-Vitamin 1 tab PO QAM 05/13/19 10/14/22 History tablet) loratadine 10 mg tablet (Claritin) 10 mg PO DAILY 05/25/19 10/14/22 History aspirin 81 mg chewable tablet 81 mg PO QAM 06/04/19 10/14/22 History clopidogrel 75 mg tablet 75 mg PO DAILY #90 tabs 12/15/21 10/14/22 Rx famotidine 20 mg tablet 20 mg PO DAILY #90 tabs 08/03/22 10/14/22 Rx fluticasone propionate 50 2 spray intranasal DAILY #16 grams 08/28/22 10/14/22 R x mcg/actuation nasal spray,suspension lisinopril 2.5 mg tablet 5 mg PO DAILY #90 tabs 09/27/22 10/14/22 Rx mecobalamin (vitamin B12) 1,000 1,000 mcg PO DAILY 09/27/22 10/14/22 History mcg chewable tablet metoprolol tartrate 25 mg tablet 37.5 mg PO BID #270 tabs 10/14/22 Rx Past Med/Surg History Medical History Acute epigastric pain Anxiety Arthritis Gastroesophageal reflux disease Hiatal hernia Hyperlipidemia Hypertension Prediabetes Per records Supraventricular tachycardia Metoprolol bid. follows with Dr. Downey (PCP) Surgical History History of cataract surgery History of D&C Family History Brother Diabetes Heart disease Cardiac disorder Father Liver cancer Sister Cardiac disorder Denies family history of Ovarian cancer Prostate cancer Myocardial infarction Breast cancer Colorectal cancer Social History Smoking Status: Never smoker Second Hand Exposure: Yes (hx as a child); Do You Dip or Chew Tobacco: No; Hx Alcohol Use: No Hx Substance Use: No Preferred Language: [place]amb[place] Communication Ability: Effective Visual Impairment: No Limitations Hearing Ability: Normal Development Consultant Required: No Beliefs That Will Affect Care: None marital status: / marital status details: Lives alone Current Living Situation: Alone current occupational status: retired Feels Safe at Home: Yes Childhood Exposure to Second-Hand Smoke: Yes Diet: other Diet Comment: healthy caffeine: Yes during the past year weight has: remained stable Dental Care, Regularly: Yes Physical Activity Frequency: Does not Exercise Seatbelt Use: always Sunscreen Use: No Assistive Devices: None Review of Systems Review of Systems: All systems reviewed & are unremarkable except as noted in HPI & below Physical Exam Physical Exam: General: A&Ox3. NAD. Cooperative. HEENT: Atraumatic, normocephalic. Vision/hearing intact. Pulm: CTAB A&P. -wheezes, -rales, -rhonchi. Symmetrical chest rise. No increased work of breathing. No respiratory distress. Cardiac: RRR, +sm. Radial pulses intact and symmetrical. Abdominal: Nontender, nondistended, soft. BS present. Ext: warm, dry. Moves all extremities equally. Sensation to soft touch intac tin hants and feet bilaterally. Left knee with anterior patellar contusion, no swelling. No calf asymmetry. Results & Data Results & Data Vital Signs (Past 12 Hours) Vital Signs Temp Pulse Pulse Resp BP BP Pulse Ox 10/14/22 13:40 71 10/14/22 13:16 75 18 128/60 98 10/14/22 13:16 10/14/22 11:46 82 14 185/108 H 99 10/14/22 10:09 82 20 139/74 98 10/14/22 10:08 86 20 139/74 98 10/14/22 09:18 70 20 176/72 H 95 10/14/22 09:14 71 10/14/22 08:22 68 20 172/75 H 96 10/14/22 07:53 86 16 97 10/14/22 07:43 37.1 C 86 20 207/92 H 97 O2 Del Method 10/14/22 13:40 10/14/22 13:16 Room Air 10/14/22 13:16 Room Air 10/14/22 11:46 Room Air 10/14/22 10:09 Room Air 10/14/22 10:08 Room Air 10/14/22 09:18 Room Air 10/14/22 09:14 10/14/22 08:22 Room Air 10/14/22 07:53 Room Air 10/14/22 07:43 Room Air PG Care Time/CCT Total # of Minutes Spent Total Time Spent with Patient: Total time spent is greater than 50% in coordination of care (as documented) at patient's floor/unit and/or counseling patient: Coding Level of Care Code 27936 INT INP/OBS CARE 3/75MIN Diagnoses Weakness R53.1 CAD (coronary artery disease) I25.10 Hyperlipidemia E78.5 Hypertension I10 Hypertension type: essential hypertension Supraventricular tachycardia I47.1 PSVT (paroxysmal supraventricular tachycardia) I47.1 (4) Hypertension Hypertension type: essential hypertension Qualified Code(s): I10 - Essential (primary) hypertension
[2022-10-14 16:37] LABS: Vitamin B12 741 pg/ml (180-914)
[2022-10-14] MEDS ORDERED: POLYETHYLENE (MIRALAX) 17 GM PACK PO PRN (17:05)
[2022-10-14 18:47] LABS: Ferritin 87.8 ng/ml (8-388)
[2022-10-15] MEDS: LEVOTHYROXINE SODIUM 25 MCG TABLET PO SCH (05:43)
[2022-10-15 08:03] LABS: Basophils # (auto) 0.03 K/uL (0-0.2); Basophils % (auto) 0.7 %; Eosinophils # (auto) 0.11 K/uL (0-0.50); Eosinophils % (auto) 2.7 %; Hematocrit (blood only) 27.7 % (37.0-47.0); Hemoglobin 8.7 g/dl (12.0-16.0); Immature Granulocytes # (auto) 0.01 K/uL (0.01-0.20); Immature Granulocytes % (auto) 0.2 %; Lymphocytes # (auto) 1.15 K/uL (1.2-3.4); Lymphocytes % (auto) 27.7 %; Mean Corpuscular Hemoglobin 30.5 pg (25.0-34.0); Mean Corpuscular Hgb Conc 31.4 g/dL (32.0-36.0); Mean Corpuscular Volume 97.2 fL (80.0-100.0); Mean Platelet Volume 10.9 fL (9.4-12.4); Monocytes # (auto) 0.32 K/uL (0.11-0.59); Monocytes % (auto) 7.7 %; Neutrophils # (auto) 2.53 K/uL (1.40-6.50); Platelet Count 196 K/uL (130-400); RDW Coefficient of Variation 13.2 % (11.5-14.5); RDW Standard Deviation 47.5 fL (36.4-46.3); Red Blood Count 2.85 M/uL (4.20-5.40); White Blood Count 4.15 K/ul (4.8-10.8)
[2022-10-15] MEDS: CLOPIDOGREL BISULFATE 75 MG TAB PO SCH (08:14)
[2022-10-15] MEDS: ASPIRIN 81 MG CHEW PO SCH (08:14)
[2022-10-15] MEDS: LORATADINE 10 MG TAB PO SCH (08:14)
[2022-10-15] MEDS: lisinopril 2.5 MG TAB PO SCH (08:14)
[2022-10-15] MEDS: FAMOTIDINE 20 MG TAB PO SCH (08:14)
[2022-10-15] MEDS: CYANOCOBALAMIN (B-12) 500 MCG TABLET PO SCH (08:15)
[2022-10-15 08:16] LABS: Anion Gap 6 (3-11); BUN Creatinine Ratio 17.5 (10-20); Blood Urea Nitrogen 18 mg/dl (6-23); Carbon Dioxide 27 mmol/L (21-32); Chloride 108 mmol/L (98-107); Creatinine Clr Calc Pharmacy 28.8 ml/min; Est GFR (African American) 56.2 ml/min; Est GFR (Non-African American) 48.5 ml/min; Glucose 90 mg/dl (70-99(Fasting)); Potassium 4.1 mmol/L (3.5-5.1); Sodium 141 mmol/L (136-145)
[2022-10-15 08:21] LABS: Troponin I High Sensitivity 29.2 pg/ml (0-14)
[2022-10-15 08:50] LABS: C Reactive Protein < 0.50 mg/dl (0-0.5)
[2022-10-15] MEDS ORDERED: ARTIFICIAL TEARS OPB PRN (16:11)
[2022-10-15] MEDS: FLUTICASONE PROPIONATE NA SPR 16 GM BTL SCH (17:23)
[2022-10-15] MEDS: busPIRone 5 MG TAB PO SCH (20:20)
[2022-10-15] MEDS: METOPROLOL TARTRATE 25 MG TAB PO SCH (20:21)
--- NOTE | 2022-10-15 20:48 | Hospitalist Progress Note ---
Date of Service October 15, 2022 Assessment & Plan (1) Weakness: Plan: patient with a host of complaints but the weakness/fatigue are the most prominent symptoms. I do not think that the very modest dose increases in her lisinopril + metoprolol caused her weakness. Even with the increases her BPs remained elevated at home, and her BPs here have been quite elevated as well. her weakness is likely multifactorial - uncontrolled HTN, insomnia, hypothyroidism, Fe deficiency with anemia, anxiety, etc are all likely playing a role. she has mild leukopenia on CBC as well - however, her WBC count tends to run low-normal chronically (about 5 based on records). sed rate/crp checked and both normal. B12 level is wnl. recommendations - * resume her usual doses of lisinopril at 2.5mg daily + metoprolol tartrate at 25mg BID and simply trend her BPs * agree w/ starting synthroid; last 3 TSH levels have been high; replacement can only help her feel better * start buspar 2.5mg BID for anxiety and titrate as tolerated * IV venofer 200mg x 2 doses * consider dedicated sleep aid - would use melatonin, but she states she is allergic? * check a B1 level in am to be complete * check a CPK level * due to the leukopenia and mild lymphopenia checked anaplasmosis smear and this was negative; consider checking a DNA test * check 25-OH vit D level in am * PT, OT evals (2) CAD (coronary artery disease): Plan: 02/2021 - NSTEMI s/p heart cath -- severe diffuse disease including ostial LAD disease, 99% proximal circumflex disease and a chronic RCA occlusion. LV function preserved on echo. Initially CABG consider but with patient's age decision made to proceed with PCI of culprit circumflex vessel. Had single JASPER (3.0 x 8 mm Xience) placed to circumflex. Remains on asa/plavix - to complete 2 years of DAP therapy. Cont CECI Cont BB she is statin intolerant could CAD be contributing to #1 above?? no obvious ischemic symptoms, however, other than mild EVANS (3) Hyperlipidemia: Plan: statin intolerant (4) Hypertension: Plan: even despite dose increased in CECI + BB a few weeks ago she continued to have very high BPs at home she has attributed her weakness to these dose increases but I am not suspicious that the meds themselves are the culprits for the weakness suspect the actual uncontrolled HTN is more of the problem will place her back on her usual doses of lisinopril + metoprolol and see where her BPs land while here adjust as needed (5) PSVT (paroxysmal supraventricular tachycardia): Plan: h/o such as seen on cardiac monitoring at her home keep on tele here cont metoprolol (6) Anemia: Plan: h/o B12 def (now resolved) h/o FE def (s/p IV Fe) follows with [facility]CP B12 level, folate wnl Ferritin level is satisfactory, but trans sat is <20% reasonable to give 1-2 doses IV venofer while here will order such for am tomorrow (7) Lightheadedness: Plan: 2nd to orthostasis - intermittently? orthostatic BPs last pm were negative monitor (8) Gastroesophageal reflux disease: Plan: cont H2 olivia (9) Leukopenia: Plan: chronically runs low-normal (5 or so) but now is 4 with lymphopenia checked anaplasmosis smear - this was negative send anaplasmosis DNA test consider additional work-up (10) Anxiety: Plan: start buspar 2.5mg BID and titrate as tolerated (11) Insomnia: Plan: buspar at HS may help with this (12) Multiple falls: Plan: 1 with head injury about 6 weeks ago PT, BRAD dhillon (13) Hypothyroidism: Plan: started synthroid 25mcg daily TSH in 6 weeks as outpatient (14) Iron deficiency: Plan: as above Plan daughter, grand-daughter updated at bedside Admission and Anticipated Discharge Date Admission Date: October 14, 2022 Subjective patient with numerous complaints during the visit she reports on a lengthy amount of medical history from the last 6-12 months her daughter and grand-daughter (a family medicine physician embalmer assistant in [place]) were at bedside during the visit pt relates that at her cardiology office visit in late September her lisinopril was increased from 2.5mg to 5mg and her metoprolol was increased from 25mg BID to 37.5mg BID she states she was very upset by these increases because she didn't know her meds were changed until her grand-daughter saw the changes on the patient portal and until she picked up the new prescriptions from the pharmacy she correlates feeling "weak" with these medication increases she reports some intermittent dizziness/lightheadedness she admits to significant anxiety and feeling "shaky" at times in the midst of discussing the above she starts to become tearful, stating "I don't want to leave my house; I want to keep living in my house" her BPs at home are often in the 170s and 180s she has seen these values even with the recent dose increases in her CECI/BB about 5-6 days ago she went back to her old doses of her meds despite such she continued to feel weak she endorses fatigue, poor sleep at night-time, and mild EVANS no recent chest pains she reports progressive weight loss over years appetite has been fair at home mentions that a few years ago she was taken off xanax she had been taking that for many years to this day she is still upset that she was taken off of it we had lengthy discussion about her anemia and Fe deficiency she reports that with IV iron she has more energy she has never had formal w/u (colonoscopy, etc) for her Fe def lastly, she mentions about 6 weeks ago she had a fall with head injury she did not have a formal eval following this fall she has had other minor mishaps at home -- she shows me her knees where there are bruises tele overnight wnl Review of Systems Review of Systems: gen - no fevers, no shaking rigors cv - no chest pain pulm - mild EVANS; no cough GI - no pain/vomiting/nausea musculo - no obvious myalgia type pain/discomfort Physical Exam Physical Exam: gen - thin, very anxious, talks fast at times, no dyspnea, NAD mouth - MMM neck - no JVD; ?small nodules thyroid (<1cm); no lymph nodes cervical region heart - RRR, s1 s2, no murmur lungs - CTA b/l abd - soft NT ND BS+; no HSM ext - trace edema b/l shins, pulses 2+ b/l skin - bruises near knees/ankles (small) psych - a/o x 3 but very anxious neuro - no proximal muscle weakness arms or legs Results & Data Results & Data Vital Signs (Past 12 Hours) Vital Signs Temp Pulse Pulse Resp BP Pulse Ox O2 Del Method 10/15/22 19:33 36.7 C 100 H 18 167/79 H 95 Room Air 10/15/22 15:47 36.7 C 93 H 18 174/75 H 95 Room Air 10/15/22 15:35 106 H 10/15/22 12:21 36.6 C 111 H 16 120/79 97 Room Air Laboratory Results Laboratory Results - last 24 hr 10/14/22 10/15/22 10/15/22 22:28 06:52 06:52 WBC 4.15 L RBC 2.85 L Hgb 8.7 L Hct 27.7 L MCV 97.2 MCH 30.5 MCHC 31.4 L RDW Std Deviation 47.5 H RDW Coeff of Chris 13.2 Plt Count 196 MPV 10.9 Immature Gran % (Auto) 0.2 Neut % (Auto) 61.0 Lymph % (Auto) 27.7 Mccreary % (Auto) 7.7 Eos % (Auto) 2.7 Baso % (Auto) 0.7 Neut # (Auto) 2.53 Lymph # (Auto) 1.15 L Mccreary # (Auto) 0.32 Eos # (Auto) 0.11 Baso # (Auto) 0.03 Immature Gran # (Auto) 0.01 ESR Sodium 141 Potassium 4.1 Chloride 108 H Carbon Dioxide 27 Anion Gap 6 BUN 18 Creatinine 1.03 Est Cr Clr Drug Dosing 28.8 Est GFR ( Amer) 56.2 Est GFR (Non-Af Amer) 48.5 BUN/Creatinine Ratio 17.5 Glucose 90 Calcium 9.0 Troponin I High Sens 35.3 H 29.2 H C-Reactive Protein < 0.50 Anaplasma Smear See Comment 10/15/22 10/15/22 06:52 11:41 WBC RBC Hgb Hct MCV MCH MCHC RDW Std Deviation RDW Coeff of Chris Plt Count MPV Immature Gran % (Auto) Neut % (Auto) Lymph % (Auto) Mccreary % (Auto) Eos % (Auto) Baso % (Auto) Neut # (Auto) Lymph # (Auto) Mccreary # (Auto) Eos # (Auto) Baso # (Auto) Immature Gran # (Auto) ESR 5 Sodium Potassium Chloride Carbon Dioxide Anion Gap BUN Creatinine Est Cr Clr Drug Dosing Est GFR ( Amer) Est GFR (Non-Af Amer) BUN/Creatinine Ratio Glucose Calcium Troponin I High Sens 26.7 H C-Reactive Protein Anaplasma Smear PG Care Time/CCT Total # of Minutes Spent Total Time Spent with Patient: Total time spent is greater than 50% in coordination of care (as documented) at patient's floor/unit and/or counseling patient: Coding Level of Care Code 32931 SUB INP/OBS CARE 3/50MIN Diagnoses Weakness R53.1 CAD (coronary artery disease) I25.10 Hyperlipidemia E78.5 Hypertension I10 Hypertension type: essential hypertension PSVT (paroxysmal supraventricular tachycardia) I47.1 Anemia D64.9 Lightheadedness R42 Gastroesophageal reflux disease K21.9 Leukopenia D72.819 Anxiety F41.9 Insomnia G47.00 Multiple falls R29.6 Hypothyroidism E03.9 Iron deficiency E61.1 (4) Hypertension Hypertension type: essential hypertension Qualified Code(s): I10 - Essential (primary) hypertension
[2022-10-15] MEDS ORDERED: busPIRone 5 MG TAB PO SCH (21:00)
[2022-10-16] MEDS: LEVOTHYROXINE SODIUM 25 MCG TABLET PO SCH (06:01)
[2022-10-16 06:55] LABS: BUN Creatinine Ratio 21.9 (10-20); Calcium 9.2 mg/dl (8.6-10.3); Creatinine Clr Calc Pharmacy 28.3 ml/min; Est GFR (African American) 54.9 ml/min; Est GFR (Non-African American) 47.4 ml/min; Potassium 4.1 mmol/L (3.5-5.1)
[2022-10-16 07:04] LABS: Basophils # (auto) 0.04 K/uL (0-0.2); Basophils % (auto) 0.8 %; Eosinophils # (auto) 0.19 K/uL (0-0.50); Eosinophils % (auto) 3.9 %; Hematocrit (blood only) 27.6 % (37.0-47.0); Hemoglobin 8.8 g/dl (12.0-16.0); Immature Granulocytes # (auto) 0.01 K/uL (0.01-0.20); Immature Granulocytes % (auto) 0.2 %; Lymphocytes # (auto) 1.52 K/uL (1.2-3.4); Lymphocytes % (auto) 31.5 %; Mean Corpuscular Hemoglobin 30.6 pg (25.0-34.0); Mean Corpuscular Hgb Conc 31.9 g/dL (32.0-36.0); Mean Corpuscular Volume 95.8 fL (80.0-100.0); Mean Platelet Volume 10.9 fL (9.4-12.4); Monocytes # (auto) 0.42 K/uL (0.11-0.59); Monocytes % (auto) 8.7 %; Neutrophils # (auto) 2.65 K/uL (1.40-6.50); Neutrophils % (auto) 54.9 %; Platelet Count 204 K/uL (130-400); RDW Coefficient of Variation 13.5 % (11.5-14.5); RDW Standard Deviation 47.3 fL (36.4-46.3); Red Blood Count 2.88 M/uL (4.20-5.40); White Blood Count 4.83 K/ul (4.8-10.8)
[2022-10-16] MEDS ORDERED: IRON SUCROSE 200 MG in 0.9 % SODIUM CHLORIDE 100 ML IV ONE (08:00)
[2022-10-16] MEDS: busPIRone 5 MG TAB PO SCH ×2 (08:27→20:14)
[2022-10-16] MEDS: METOPROLOL TARTRATE 25 MG TAB PO SCH ×2 (08:27→20:13)
[2022-10-16] MEDS: CLOPIDOGREL BISULFATE 75 MG TAB PO SCH (08:28)
[2022-10-16] MEDS: lisinopril 2.5 MG TAB PO SCH (08:28)
[2022-10-16] MEDS: ASPIRIN 81 MG CHEW PO SCH (08:28)
[2022-10-16] MEDS: FAMOTIDINE 20 MG TAB PO SCH (08:28)
[2022-10-16] MEDS: FLUTICASONE PROPIONATE NA SPR 16 GM BTL SCH (08:28)
[2022-10-16] MEDS: LORATADINE 10 MG TAB PO SCH (08:28)
[2022-10-16] MEDS: CYANOCOBALAMIN (B-12) 500 MCG TABLET PO SCH (08:28)
--- NOTE | 2022-10-16 19:56 | Hospitalist Progress Note ---
Date of Service October 16, 2022 Assessment & Plan (1) Weakness: Plan: weakness improved today her weakness is likely multifactorial - uncontrolled HTN (both high and low - today her BPs have been low with some orthostasis ON HER USUAL REGIMEN OF METOPROLOL/LISINOPRIL), insomnia, hypothyroidism, Fe deficiency with anemia, SOPHY, etc she has mild leukopenia on CBC as well - however, her WBC count tends to run low-normal chronically (about 5 based on records). sed rate/crp wnl B12 level wnl plan: * HOLD lisinopril; cont metoprolol tartrate at 25mg BID and simply trend her BPs * agree w/ starting synthroid; last 3 TSH levels have been high; replacement can only help her feel better * cont buspar 2.5mg BID for anxiety and titrate as tolerated * IV venofer 200mg x 2 doses - first dose today * consider dedicated sleep aid - would use melatonin, but she states she is allergic? * B1 level pending; give thiamine 200mg BID empirically for now * CPK level wnl * due to the leukopenia and mild lymphopenia checked anaplasmosis smear and this was negative; DNA test sent and pending * 25-OH vit D level normal PT/OT evals completed and cleared for home but recommended HH nursing for med compliance, BP checks, etc also set up home PT eval for safety due to falls talk with family about starting to explore assisted living (2) CAD (coronary artery disease): Plan: 02/2021 - NSTEMI s/p heart cath -- severe diffuse disease including ostial LAD disease, 99% proximal circumflex disease and a chronic RCA occlusion. LV function preserved on echo. Initially CABG consider but with patient's age decision made to proceed with PCI of culprit circumflex vessel. Had single JASPER (3.0 x 8 mm Xience) placed to circumflex. Remains on asa/plavix - to complete 2 years of DAP therapy. HOLD CECI due to low BPs today Cont BB she is statin intolerant could CAD be contributing to #1 above?? no obvious ischemic symptoms, however, other than mild EVANS (3) Hyperlipidemia: Plan: statin intolerant (4) Hypertension: Plan: she was markedly hypertensive at time of admission she reported high BPs at home as well but daughter today stated she has "troubles with her BP cuff at home" today she is either normal or low is she getting LOW at home causing her falls and weakness?? HOLD lisinopril cont metoprolol trend BPs (5) PSVT (paroxysmal supraventricular tachycardia): Plan: h/o such as seen on cardiac monitoring at her home keep on tele here cont metoprolol (6) Anemia: Plan: h/o B12 def (now resolved) h/o FE def (s/p IV Fe) follows with [facility] B12 level, folate wnl Ferritin level is satisfactory, but trans sat is <20% reasonable to give 2 doses IV venofer while here will order such for today & tomorrow (7) Lightheadedness: Plan: 2nd to orthostasis - intermittently? orthostatic BPs last pm were negative but today were positive HOLD lisinopril monitor (8) Gastroesophageal reflux disease: Plan: cont H2 olivia (9) Leukopenia: Plan: chronically runs low-normal (5 or so) but now is 4 with lymphopenia checked anaplasmosis smear - this was negative sent anaplasmosis DNA test CBC in am (10) Anxiety: Plan: cont buspar 2.5mg BID and titrate as tolerated (11) Insomnia: Plan: buspar at HS may help with this (12) Multiple falls: Plan: 1 with head injury about 6 weeks ago PT, OT evals - cleared for home, but I recommended nursing and home PT safety eval also, discuss with family that it it probably prudent to start looking at assisted living facilities (13) Hypothyroidism: Plan: started synthroid 25mcg daily TSH in 6 weeks as outpatient (14) Iron deficiency: Plan: as above (15) Cognitive impairment: Plan: based on daughter's history it sounds like Mrs Montes has cognitive impairment - perhaps even early dementia advised neurology referral post-discharge for neuropsych testing await B1 level previous B12 def has been corrected mild hypothyroidism - started replacement Plan daughter updated at bedside today Admission and Anticipated Discharge Date Admission Date: October 14, 2022 Subjective tele stable overnight patient states "I feel better" weakness improved felt a little dizzy earlier today but improved she states last pm she was "sleep walking" she awoke late pm/early am and wasn't sure where she was she was re-oriented by staff pt's daughter was at bedside today they have noted 2-3 years ago mild cognitive impairment/memory issues repeats herself often times patient sometimes thinks her is still alive and when she wakes up in the morning at home she has to remind herself he is no longer living patient denies any new complaints she did sleep better last pm; fell asleep fast last pm which she is happy about eating ok Review of Systems Review of Systems: CV - no chest pain pulm - no dyspnea GI - no abd pain/nausea/emesis Physical Exam Physical Exam: gen - thin, modest confusion present, but looks good & NAD mouth - MMM neck - no JVD heart - RRR, s1 s2, no murmur lungs - CTA b/l abd - soft NT ND BS+; no HSM ext - trace edema b/l shins, pulses 2+ b/l skin - bruises near knees/ankles psych - a/o x 3 but a little confused during our conversation Results & Data Results & Data Vital Signs (Past 12 Hours) Vital Signs Temp Pulse Pulse Resp BP Pulse Ox O2 Del Method 10/16/22 16:28 86 10/16/22 12:16 89 17 93/58 L 97 Room Air 10/16/22 08:25 Room Air 10/16/22 08:12 36.3 C L 77 18 164/78 H 97 Room Air Laboratory Results Laboratory Results - last 24 hr 10/16/22 10/16/22 10/16/22 05:59 05:59 05:59 WBC 4.83 RBC 2.88 L Hgb 8.8 L Hct 27.6 L MCV 95.8 MCH 30.6 MCHC 31.9 L RDW Std Deviation 47.3 H RDW Coeff of Chris 13.5 Plt Count 204 MPV 10.9 Immature Gran % (Auto) 0.2 Neut % (Auto) 54.9 Lymph % (Auto) 31.5 [place] % (Auto) 8.7 Eos % (Auto) 3.9 Baso % (Auto) 0.8 Neut # (Auto) 2.65 Lymph # (Auto) 1.52 [place] # (Auto) 0.42 Eos # (Auto) 0.19 Baso # (Auto) 0.04 Immature Gran # (Auto) 0.01 Sodium 142 Potassium 4.1 Chloride 110 H Carbon Dioxide 27 Anion Gap 5 BUN 23 Creatinine 1.05 Est Cr Clr Drug Dosing 28.3 Est GFR ( Amer) 54.9 Est GFR (Non-Af Amer) 47.4 BUN/Creatinine Ratio 21.9 H Glucose 89 Calcium 9.2 Total Creatine Kinase 109 Vitamin B1 25-OH Vitamin D Total 30.6 A. phagocytophilum DNA 10/16/22 10/16/22 05:59 05:59 WBC RBC Hgb Hct MCV MCH MCHC RDW Std Deviation RDW Coeff of Chris Plt Count MPV Immature Gran % (Auto) Neut % (Auto) Lymph % (Auto) [place] % (Auto) Eos % (Auto) Baso % (Auto) Neut # (Auto) Lymph # (Auto) [place] # (Auto) Eos # (Auto) Baso # (Auto) Immature Gran # (Auto) Sodium Potassium Chloride Carbon Dioxide Anion Gap BUN Creatinine Est Cr Clr Drug Dosing Est GFR ( Amer) Est GFR (Non-Af Amer) BUN/Creatinine Ratio Glucose Calcium Total Creatine Kinase Vitamin B1 Pending 25-OH Vitamin D Total A. phagocytophilum DNA Pending PG Care Time/CCT Total # of Minutes Spent Total Time Spent with Patient: Total time spent is greater than 50% in coordination of care (as documented) at patient's floor/unit and/or counseling patient: Coding Level of Care Code 25774 SUB INP/OBS CARE 3/50MIN Diagnoses Weakness R53.1 CAD (coronary artery disease) I25.10 Hyperlipidemia E78.5 Hypertension I10 Hypertension type: essential hypertension PSVT (paroxysmal supraventricular tachycardia) I47.1 Anemia D64.9 Lightheadedness R42 Gastroesophageal reflux disease K21.9 Leukopenia D72.819 Anxiety F41.9 Insomnia G47.00 Multiple falls R29.6 Hypothyroidism E03.9 Iron deficiency E61.1 Cognitive impairment R41.89 (4) Hypertension Hypertension type: essential hypertension Qualified Code(s): I10 - Essential (primary) hypertension
[2022-10-16] MEDS: THIAMINE HCL 100 MG TAB PO SCH (20:15)
[2022-10-17] MEDS: LEVOTHYROXINE SODIUM 25 MCG TABLET PO SCH (05:48)
[2022-10-17 07:21] LABS: Basophils # (auto) 0.03 K/uL (0-0.2); Basophils % (auto) 0.5 %; Eosinophils % (auto) 3.5 %; Hematocrit (blood only) 28.4 % (37.0-47.0); Immature Granulocytes # (auto) 0.02 K/uL (0.01-0.20); Immature Granulocytes % (auto) 0.3 %; Lymphocytes # (auto) 1.38 K/uL (1.2-3.4); Lymphocytes % (auto) 23.9 %; Mean Corpuscular Hemoglobin 30.2 pg (25.0-34.0); Mean Corpuscular Hgb Conc 31.7 g/dL (32.0-36.0); Mean Corpuscular Volume 95.3 fL (80.0-100.0); Mean Platelet Volume 10.6 fL (9.4-12.4); Monocytes # (auto) 0.53 K/uL (0.11-0.59); Monocytes % (auto) 9.2 %; Neutrophils # (auto) 3.62 K/uL (1.40-6.50); Neutrophils % (auto) 62.6 %; Platelet Count 202 K/uL (130-400); RDW Coefficient of Variation 13.5 % (11.5-14.5); RDW Standard Deviation 46.3 fL (36.4-46.3); Red Blood Count 2.98 M/uL (4.20-5.40); White Blood Count 5.78 K/ul (4.8-10.8)
[2022-10-17 07:32] LABS: BUN Creatinine Ratio 23.4 (10-20); Calcium 8.9 mg/dl (8.6-10.3); Creatinine Clr Calc Pharmacy 27.2 ml/min; Est GFR (African American) 51.3 ml/min; Est GFR (Non-African American) 44.3 ml/min; Potassium 4.3 mmol/L (3.5-5.1)
[2022-10-17] MEDS: FLUTICASONE PROPIONATE NA SPR 16 GM BTL SCH (07:57)
[2022-10-17] MEDS: THIAMINE HCL 100 MG TAB PO SCH (07:58)
[2022-10-17] MEDS: FAMOTIDINE 20 MG TAB PO SCH (07:58)
[2022-10-17] MEDS: busPIRone 5 MG TAB PO SCH (07:58)
[2022-10-17] MEDS: METOPROLOL TARTRATE 25 MG TAB PO SCH (07:58)
[2022-10-17] MEDS: CYANOCOBALAMIN (B-12) 500 MCG TABLET PO SCH (07:58)
[2022-10-17] MEDS: ASPIRIN 81 MG CHEW PO SCH (07:58)
[2022-10-17] MEDS: CLOPIDOGREL BISULFATE 75 MG TAB PO SCH (07:59)
[2022-10-17] MEDS: LORATADINE 10 MG TAB PO SCH (07:59)
[2022-10-17] MEDS ORDERED: IRON SUCROSE 200 MG in 0.9 % SODIUM CHLORIDE 100 ML IV ONE (08:00)
--- NOTE | 2022-10-17 13:09 | Discharge Summary ---
Date of Service October 17, 2022 Admission HPI Per Admitting Provider April is an 87-year-old female with past medical history of NSTEMI, HTN, anemia, and weakness She presents for general unwellness after increasing her lisinopril 2 weeks ago, she did call her cops office several days ago and decrease this to 1 pill/day. This morning she felt particularly weak, with difficulty balancing and called 911 for transport to the ER. Creatinine baseline is approximately 1.2, admitting creatinine is 1.23 with slightly increased ratio No leukocytosis Sodium, potassium are normal High-sensitivity troponin 28.7, repeat 28.8. Chronically elevated last 02/2022 TSH elevated 8.4, free T40.84 UA is not infected appearing Lyme and negative CThead: No acute findings CXR: Cardiomegaly, no acute consolidation/edema/effusion April is seen at the bedside with family present. She has felt progressively weak and initially thought this was due to blood pressure medicines, but notes even going back to her regimen which has been stable for years she has been weak and had 1 fall to her knees from global fatigue/weakness, although denies focal weakness and syncope at that time Has been seen by her heart doctor for hx of NSTEMI and HTN. Her BP is very high intermittently (she think she gets white coat syndrome). 3 weeks ago her BP/Metoprolol was increased, but she started to have trouble with fatigue and energy. +lightheadedness. Has had some sweats with her lightheadedness. Happens daily, mostly in the morning. She talked to her cardiology office nurse and decreased lisinopril back to 2.5mg daily. Taking metoprolol 25mg AM 37.5mg in the evening. Some cramps last night no chest pain or chest pressure Has felt similarly with low iron before. Denies bleeding. No melena/BRPR Medical History: Reviewed Medications: Reviewed. Did not take AM medicines, only took medicines Surgical History: Reviewed Family history: Reviewed Allergies: Reviewed Social History: No tobacco or ETOH Code Status: Full Code Discharge Exam gen - thin, modest confusion present, but looks good & NAD mouth - MMM neck - no JVD heart - RRR, s1 s2, no murmur lungs - CTA b/l abd - soft NT ND BS+; no HSM ext - trace edema b/l shins, pulses 2+ b/l skin - bruises near knees/ankles psych - a/o x 3 but a little confused during our conversation Discharge Data Allergies Allergy/AdvReac Type Severity Reaction Status Date / Time haloperidol [From Haldol] Allergy Severe Verified 09/27/22 09:28 Iodinated Contrast Media Allergy Intermediate HIVES Verified 09/27/22 09:28 atorvastatin [From Lipitor] AdvReac Intermediate myalgia Verified 09/27/22 09:28 levofloxacin [From Levaquin] AdvReac Intermediate Anxiety Verified 09/27/22 09:28 losartan AdvReac Intermediate nervous / Verified 09/27/22 09:28 hanane horses and insomnia pravastatin AdvReac Intermediate myalgia Verified 09/27/22 09:28 prednisone AdvReac Mild hyperactivi Verified 09/27/22 09:28 ty Consultations 10/14/22 14:11 ED Decision to Admit Stat Ordered Studies 10/14/22 07:58 CT head/brain wo con Stat Hospital Course (1) Weakness: weakness improved today her weakness is likely multifactorial - uncontrolled HTN (both high and low - today her BPs have been low with some orthostasis ON HER USUAL REGIMEN OF METOPROLOL/LISINOPRIL), insomnia, hypothyroidism, Fe deficiency with anemia, SOPHY, etc she has mild leukopenia on CBC as well - however, her WBC count tends to run low-normal chronically (about 5 based on records). sed rate/crp wnl B12 level wnl plan: * HOLD lisinopril; cont metoprolol tartrate at 25mg BID and simply trend her BPs * agree w/ starting synthroid; last 3 TSH levels have been high; replacement can only help her feel better * cont buspar 2.5mg BID for anxiety and titrate as tolerated * IV venofer 200mg x 2 doses - first dose today * consider dedicated sleep aid - would use melatonin, but she states she is allergic? * B1 level pending; give thiamine 200mg BID empirically for now * CPK level wnl * due to the leukopenia and mild lymphopenia checked anaplasmosis smear and this was negative; DNA test sent and pending * 25-OH vit D level normal PT/OT evals completed and cleared for home but recommended nursing for med compliance, BP checks, etc also set up home PT eval for safety due to falls talk with family about starting to explore assisted living (2) CAD (coronary artery disease): 02/2021 - NSTEMI s/p heart cath -- severe diffuse disease including ostial LAD disease, 99% proximal circumflex disease and a chronic RCA occlusion. LV function preserved on echo. Initially CABG consider but with patient's age decision made to proceed with PCI of culprit circumflex vessel. Had single JASPER (3.0 x 8 mm Xience) placed to circumflex. Remains on asa/plavix - to complete 2 years of DAP therapy. HOLD CECI due to low BPs today Cont BB she is statin intolerant could CAD be contributing to #1 above?? no obvious ischemic symptoms, however, other than mild EVANS (3) Hyperlipidemia: statin intolerant (4) Hypertension: she was markedly hypertensive at time of admission she reported high BPs at home as well but daughter today stated she has "troubles with her BP cuff at home" today she is either normal or low is she getting LOW at home causing her falls and weakness?? HOLD lisinopril cont metoprolol trend BPs (5) PSVT (paroxysmal supraventricular tachycardia): h/o such as seen on cardiac monitoring at her home keep on tele here cont metoprolol (6) Anemia: h/o B12 def (now resolved) h/o FE def (s/p IV Fe) follows with [facility] B12 level, folate wnl Ferritin level is satisfactory, but trans sat is <20% reasonable to give 2 doses IV venofer while here will order such for today & tomorrow (7) Lightheadedness: 2nd to orthostasis - intermittently? orthostatic BPs last pm were negative but today were positive HOLD lisinopril monitor (8) Gastroesophageal reflux disease: cont H2 olivia (9) Leukopenia: chronically runs low-normal (5 or so) but now is 4 with lymphopenia checked anaplasmosis smear - this was negative sent anaplasmosis DNA test CBC in am (10) Anxiety: cont buspar 2.5mg BID and titrate as tolerated (11) Insomnia: buspar at HS may help with this (12) Multiple falls: 1 with head injury about 6 weeks ago PT, OT evals - cleared for home, but I recommended nursing and home PT safety eval also, discuss with family that it it probably prudent to start looking at assisted living facilities (13) Hypothyroidism: started synthroid 25mcg daily TSH in 6 weeks as outpatient (14) Iron deficiency: as above (15) Cognitive impairment: based on daughter's history it sounds like Mrs Montes has cognitive impairment - perhaps even early dementia advised neurology referral post-discharge for neuropsych testing await B1 level previous B12 def has been corrected mild hypothyroidism - started replacement Plan daughter updated at bedside today Home Health Attestation I certify that this patient is under my care and that I, or a physicians child life assistant working with me, had a face to-face encounter that meets the home health [id number] encounter requirements with this patient. The encounter with the patient was in whole, or in part, for the following medical condition, which is the primary reason for home health care (list medical condition): I certify that, based on my findings, the following services are medically necessary home health services: My clinical findings support the need for the above services because: Further, I certify that my clinical findings support that this patient is homebound (i.e. absences from home require considerable and taxing effort and are for medical reasons or buddhism services or infrequently or of short duration when for other reasons) because: Certification for Home Health Services: Based on the above findings, I certify that this patient is confined to the home and needs intermittent custodial care, physical therapy and/or speech therapy or continues to need occupational therapy. The patient is under my care, and I have initiated the establishment of the plan of care. This patient will be followed by a physician who will periodically review the plan of care. Discharge Plan Discharge Items Patient Disposition: Home - Home Health Services Reason For Visit: Weakness Discharge Diagnosis: 1. Weakness - likely multiple causes including uncontrolled high blood pressure (wide swings, both highs and lows), hypothyroidism, anemia & low iron, etc 2. Iron deficiency 3. Suspected cognitive impairment 4. Hypothyroidism 5. Anemia due to #2, possibly other factors 6. Anxiety 7. Falls 8. Coronary artery disease Activity: As commented below Activity Comment: gradually increase activities over the next 3-5 days Non-emergency contact: Primary Care Provider, Specialist and Lead Refiner Call non-emergency contact if: you have any medication questions, your symptoms worsen and you have a fever Follow-up/Referrals: Austin Monte MD, PhD [Physician] - (1-2 weeks for blood pressure check, etc.) Elza Adams PA-C [Physician Clinical Reimbursement Specialist] - (1-2 weeks to recheck blood counts and to determine need for more IV iron. ) Seema Sweeney MD [Primary Care Provider] - (ideally within 5 days; we can try to assist you in getting an appointment within that time frame.) Diet: Heart Healthy Addtl Attending Provider Instructions: Mrs Montes, You were hospitalized for a host of symptoms including weakness, feeling shaky, feeling a little dizzy, etc. Multiple causes likely contributed to you feeling poorly. When you first arrived your blood pressures were very high (180-200 systolic, the "top" number). It is not clear why they were so elevated. However, your blood pressure readings improved very nicely with supportive care and time. In fact, many of your readings became very well-controlled in the 130s and 140s or less. We did see that you have a very common problem that we often see in seniors. When you stand your blood pressure drops some. Due to the fact that your blood pressures improved nicely AND your blood pressure drops mildly when you stand we STOPPED your lisinopril and LOWERED your metoprolol to 25mg twice a day. We watched you for over 24 hours with this regimen and your blood pressures remained quite good. Your weakness resolved and you reported feeling well. Although your blood pressure readings are often high at the doctor's office, and certainly there are times when it is likely high at home too - I am suspicious that you have had low or low-normal readings at your house as well. This will make you feel weak and dizzy. Highly elevated blood pressures will also cause you to feel poorly. In addition to the above, it appears that you have mild hypothyroidism. This means that your thyroid gland is underactive. An underactive thyroid gland can cause weakness, fatigue, make you feel more cold than usual, interfere with memory, etc. We have started you on supplemental thyroid medication. You have chronic anemia which means your red cells run low. Your hemoglobin levels have been running about 10 to 11 over the last 1-2 years. [facility] When you arrived your hemoglobin was 9.8. Your hemoglobin then settled out at about 9. We gave you 2 runs of IV iron while here. Your vitamin B12 and folate levels were normal. Additionally, we started you on a low-dose of an anxiety medication called buspirone. You have done well on this so far. This medication is not addicting or habit-forming. It may help you rest better at night. Your family doctor will likely be able to increase it to 5mg twice a day in the next couple of weeks. Recommendations - 1. Blood pressure medication - * STOP your lisinopril for now * LOWER your metoprolol to 25mg twice daily * Ideally your blood pressure is checked at least once a day at your home to track your numbers * We will arrange a home health nurse to come to your home each week to keep an eye on your blood pressures, make sure you are doing well on your medications, etc * If you are feeling dizzy or lightheaded please have one of your family members check your blood pressure at home * Consider wearing knee-high compression stockings. These help prevent drops in your blood pressure when you stand. 2. Hypothyroidism - * TAKE levothyroxine 25mcg once daily each morning * Your thyroid level will need to be rechecked by your family doctor in about 6 weeks 3. Your new anti-anxiety medication is "buspirone." Take 1/2 tablet (2.5mg) twice daily. This dose can likely be increased by your family doctor sometime in the next few weeks. 4. While awaiting your thiamine (B1) level please take thiamine 200mg twice daily x 30 days. Prescription sent to your pharmacy for you. 5. No need to take supplemental iron at home since you received IV iron. 6. I would recommend that you visit with [facility] for testing to determine if you are developing cognitive impairment. This can interfere with your thinking, your memory, etc. Dr Freddie Koehler or one of his partners can do this for you. 7. Please use a rolling walker at home and when you leave your home. 8. When rising from a seated position to standing position please go slowly and carefully. If you ever feel dizzy or lightheaded please sit or lay down right away. 9. Consider taking a multivitamin with minerals once daily such as Centrum silver. 10. Finally, since you have been having troubles with iron deficiency, please collect a stool to perform a fecal occult blood test. We have provided you with a stool card to complete this. Once you have completed it simply drop off to your family doctor's office to be processed. This can tell you if you have blood in your stool. If you have blood in the stool this is the likely reason for ongoing iron deficiency. Follow-up - see separate section Return to [facility] if - * you have fevers over 100 degrees * you are short of breath or you have chest pains * you have falls * you have dizziness or lightheadedness * you have fainting spells * your blood pressure is consistently greater than 200 on the top number * any other concerns It was our pleasure to care for you! -Dr Echevarria Pending Studies at Discharge: Yes Studies:: Vitamin B1 level; Anaplasmosis testing (a tick-borne illness). Stand-Alone Forms: [facility], Smoking Cessation Medications and DC Order Prescriptions: New buspirone 5 mg Tablet 2.5 mg PO BID Qty: 60 2RF thiamine HCl (vitamin B1) 100 mg Tablet 200 mg PO BID 30 Days Qty: 120 0RF levothyroxine [Synthroid] 25 mcg Tablet 25 mcg PO DAILYBB Qty: 30 2RF Continued multivitamin [Daily Multi-Vitamin] tablet 1 tab PO QAM clopidogrel 75 mg tablet 75 mg PO DAILY Qty: 90 3RF fluticasone propionate 50 mcg/actuation spray,suspension 2 spray INTNAS DAILY Qty: 16 5RF mecobalamin (vitamin B12) 1,000 mcg tablet,chewable 1,000 mcg PO DAILY loratadine [Claritin] 10 mg tablet 10 mg PO DAILY aspirin 81 mg Tablet,Chewable 81 mg PO QAM Changed famotidine 20 mg tablet 20 mg PO BID Qty: 90 3RF metoprolol tartrate 25 mg tablet 25 mg PO BID Qty: 270 3RF Discontinued lisinopril 2.5 mg tablet 5 mg PO DAILY Qty: 90 3RF Rx Instructions: Per pt and daughter, she takes just one 2.5 tablet in the mornings. Discharge Orders: Discharge Order (Routine); Ordered 10/17/22 Ordered By: Fam Rose/Other Patient Handouts: ED Hypothyroidism Admission Data Admit Date/Time: 10/14/22 14:39 Attending Provider: Fam Echevarria Admit Provider: Ta Bello Primary Care Provider: Seema Sweeney Other Providers: Ta Bello ; [facility] Coding Diagnoses Weakness R53.1 CAD (coronary artery disease) I25.10 Hyperlipidemia E78.5 Hypertension I10 Hypertension type: essential hypertension PSVT (paroxysmal supraventricular tachycardia) I47.1 Anemia D64.9 Lightheadedness R42 Gastroesophageal reflux disease K21.9 Leukopenia D72.819 Anxiety F41.9 Insomnia G47.00 Multiple falls R29.6 Hypothyroidism E03.9 Iron deficiency E61.1 Cognitive impairment R41.89
== END 2022-10-17 14:40 | disposition home health service (06) | DRG 812 ==
LOC: ED 07:35 → SUATTDRO 14:39 → 2N 14:39